=== PATIENT | female | born 1970 | race Two or more races ===

== ENCOUNTER 2023-07-28 16:19 | Inpatient (IN) | payer OTHER ==
[~2023-07-28] VITALS: Ht 149.9 cm; Wt 70.0 kg
[2023-07-28 17:03] LABS: Basophils # (auto) 0.1 10 ^3/uL (0-0.2); Basophils % (auto) 0.8 % (0.0-2.0); Eosinophils # (auto) 0.1 10 ^3/uL (0-0.8); Eosinophils % (auto) 1.6 % (0.0-7.0); Hematocrit 38.2 % (36.0-46.0); Hemoglobin 12.6 g/dL (12.2-16.2); Lymphocytes # (auto) 2.3 10 ^3/uL (0.4-5.4); Mean Corpuscular Hemoglobin 29.8 pg (28.0-32.0); Mean Corpuscular Volume 90.4 fL (80.0-100.0); Monocytes # (auto) 0.9 10 ^3/uL (0-1.3); Monocytes % (auto) 10.9 % (0.0-12.0); Neutrophils # (auto) 5.3 10 ^3/uL (1.6-8.6); Neutrophils % (auto) 60.7 % (37.0-80.0); Nucleated Red Blood Cells % 0.2 %; Red Blood Cells 4.22 10^6/uL (4.0-5.20); Red Cell Distribution Width 13.2 % (11.8-14.3); White Blood Cell 8.7 10^3/uL (4.4-10.8)
[2023-07-28 17:14] LABS: Chloride 103 mmol/L (98-107); Potassium 5.1 mmol/L (3.5-5.1); Sodium 138 mmol/L (136-145)
[2023-07-28 17:15] LABS: Anion Gap 5 (5-15); Carbon Dioxide 30 mmol/L (20-30)
[2023-07-28 17:16] LABS: Calcium 9.6 mg/dL (8.5-10.1)
[2023-07-28 17:20] LABS: Glucose 258 mg/dL (74-106)
[2023-07-28 17:21] LABS: BUN/Creatinine Ratio 26.7 (10.0-20.0); Blood Urea Nitrogen 24 mg/dL (9-23)
[2023-07-28] MEDS: KETOROLAC TROMETH 30 MG/ML 1ML VIAL IV ONE (17:30)
[2023-07-28] MEDS: SODIUM CHLORIDE 0.9% 1,000 ML IVB ONE (17:31)
[2023-07-28 18:34] LABS: Urine Bacteria NONE SEEN /hpf (None Seen); Urine Blood 3+ /uL (Negative); Urine Clarity CLOUDY (Clear); Urine Color Yellow (Yellow); Urine Protein, UAD 2+ (Negative); Urine Specific Gravity 1.021 (1.001-1.035); Urine Urobilinogen Normal (Negative); Urine WBC 953 /hpf (0 - 5); Urine WBC Clumps PRESENT /hpf (None Seen)
[2023-07-28] MEDS ORDERED: METH5TAB98 PO (20:46)
[2023-07-28] MEDS ORDERED: ATOR10TA52 PO (20:46)
[2023-07-28] MEDS ORDERED: ACETAMINOPHEN 325 MG TAB PO PRN (21:30)
[2023-07-28] MEDS ORDERED: DEXTROSE (50%) 50ML SYRG IV PRN (21:30)
[2023-07-28] MEDS ORDERED: DOCUSATE SOD 100 MG CAP PO PRN (21:30)
[2023-07-28] MEDS ORDERED: HYDROcodone-ACET 5/325MG TAB PO PRN (21:30)
[2023-07-28] MEDS ORDERED: ONDANSETRON HCL 4 MG/2 ML VIAL IV PRN (21:30)
[2023-07-28 21:50] VITALS: PULSE 97; RESP 19; O2SAT 96
[2023-07-28] MEDS: cefTRIAXone 1GM/50ML D5W 50 ML IV ONE (21:57)
[2023-07-28] MEDS: SODIUM CHLORIDE 0.9% 1,000 ML IV ONE (21:57)
[2023-07-28] MEDS: ACCU-CHEK COMFORT CURVE STRIP VI SCH (21:58)
[2023-07-28] MEDS: InsuLIN REG 1unit/0.01ml Soln (100units/ml) SC SCH (21:59)
[2023-07-28 22:00] LABS: Lactic Acid w/Reflex 2.7 mmol/L (0.4-2.0)
[2023-07-29] VITALS (8 sets, daily range): BP systolic 135–153; BP diastolic 50–71; PULSE 82–110; RESP 16–20; TEMP 98.4–98.9; O2SAT 94–97
[2023-07-29] MEDS ORDERED: PROP1TAB53 PO (05:00)
[2023-07-29] MEDS ORDERED: INSU100I55 SC (05:00)
[2023-07-29] MEDS: InsuLIN REG 1unit/0.01ml Soln (100units/ml) SC SCH (05:53)
[2023-07-29 06:31] LABS: Basophils # (auto) 0.1 10 ^3/uL (0-0.2); Basophils % (auto) 0.6 % (0.0-2.0); Eosinophils # (auto) 0.1 10 ^3/uL (0-0.8); Eosinophils % (auto) 1.2 % (0.0-7.0); Hematocrit 36.4 % (36.0-46.0); Hemoglobin 11.8 g/dL (12.2-16.2); Lymphocytes # (auto) 1.6 10 ^3/uL (0.4-5.4); Lymphocytes % (auto) 18.2 % (10.0-50.0); Mean Corpuscular Hemoglobin 29.3 pg (28.0-32.0); Mean Corpuscular Hgb Conc. 32.4 g/dL (32.0-36.0); Mean Corpuscular Volume 90.6 fL (80.0-100.0); Monocytes # (auto) 0.8 10 ^3/uL (0-1.3); Monocytes % (auto) 9.3 % (0.0-12.0); Neutrophils # (auto) 6.1 10 ^3/uL (1.6-8.6); Neutrophils % (auto) 70.7 % (37.0-80.0); Red Blood Cells 4.02 10^6/uL (4.0-5.20); Red Cell Distribution Width 13.2 % (11.8-14.3); White Blood Cell 8.6 10^3/uL (4.4-10.8)
[2023-07-29 06:48] LABS: Alanine Aminotransferase 101 U/L (7-40); Albumin 3.6 g/dL (3.2-4.8); Alkaline Phosphatase 277 U/L (46-116); Anion Gap 12 (5-15); Aspartate Aminotransferase 145 U/L (13-40); BUN/Creatinine Ratio 24.6 (10.0-20.0); Blood Urea Nitrogen 17 mg/dL (9-23); Carbon Dioxide 20 mmol/L (20-30); Chloride 103 mmol/L (98-107); Glucose 383 mg/dL (74-106); Potassium 4.8 mmol/L (3.5-5.1); Sodium 135 mmol/L (136-145)
[2023-07-29 06:49] LABS: Bilirubin, Total 0.6 mg/dL (0.2-1.0); Total Protein 6.1 g/dL (5.7-8.2)
[2023-07-29] MEDS: cefTRIAXone 1GM/50ML D5W 50 ML IV SCH (09:00)
[2023-07-29 10:23] LABS: Lactic Acid w/Reflex 2.4 mmol/L (0.4-2.0)
[2023-07-29] MEDS ORDERED: CEPH250C PO (11:42)
[2023-07-29] MEDS: SODIUM CHLORIDE 0.9% 1,000 ML IV ONE (11:45)
[2023-07-29 12:23] LABS: Free T4 (Free Thyroxine) 2.19 ng/dL (0.89-1.76); T3 Total 1.68 ng/mL (0.60-1.81)
[2023-07-29 14:37] LABS: Alanine Aminotransferase 94 U/L (7-40); Albumin 3.4 g/dL (3.2-4.8); Alkaline Phosphatase 276 U/L (46-116); Anion Gap 14 (5-15); Aspartate Aminotransferase 99 U/L (13-40); Bilirubin, Total 0.6 mg/dL (0.2-1.0); Blood Urea Nitrogen 14 mg/dL (9-23); Calcium 8.6 mg/dL (8.7-10.4); Carbon Dioxide 19 mmol/L (20-30); Chloride 101 mmol/L (98-107); Potassium 4.8 mmol/L (3.5-5.1); Sodium 134 mmol/L (136-145); Total Protein 5.5 g/dL (5.7-8.2)
[2023-07-29 15:05] LABS: Glucose 472 mg/dL (74-106)
[2023-07-29] MEDS: SODIUM CHLORIDE 0.9% 1,000 ML IV SCH (18:45)
[2023-07-29] MEDS: INSULIN LANTUS (GLARGINE) 1 /0.01ml (100units/ml) SC SCH (22:21)
[2023-07-30] VITALS (7 sets, daily range): BP systolic 118–158; BP diastolic 49–80; PULSE 74–89; RESP 16–22; TEMP 97.6–98.4; O2SAT 97–100
[2023-07-30 06:52] LABS: Alanine Aminotransferase 106 U/L (7-40); Albumin 3.5 g/dL (3.2-4.8); Alkaline Phosphatase 302 U/L (46-116); Anion Gap 7 (5-15); Aspartate Aminotransferase 171 U/L (13-40); BUN/Creatinine Ratio 22.4 (10.0-20.0); Blood Urea Nitrogen 11 mg/dL (9-23); Calcium 8.9 mg/dL (8.7-10.4); Carbon Dioxide 25 mmol/L (20-30); Chloride 105 mmol/L (98-107); Glucose 178 mg/dL (74-106); Potassium 4.1 mmol/L (3.5-5.1); Sodium 137 mmol/L (136-145)
[2023-07-30 06:53] LABS: Bilirubin, Total 0.4 mg/dL (0.2-1.0); Total Protein 5.9 g/dL (5.7-8.2)
[2023-07-30 08:46] LABS: Acetaminophen < 2.0 UG/ML (10.0-20.0)
[2023-07-30 08:53] LABS: Salicylate < 3.0 mg/dL (2.8-20.0)
[2023-07-30] MEDS: methIMAzole 5 MG TAB PO ONE (09:17)
[2023-07-30] MEDS: LOSARTAN POTASSIUM 50 MG TAB PO SCH (09:35)
[2023-07-30] MEDS: IBUPROFEN 800 MG TAB PO PRN (12:36)
[2023-07-30] MEDS: methIMAzole 5 MG TAB PO SCH (13:06)
[2023-07-31 05:00] VITALS: BP 135/83; PULSE 92; RESP 22; TEMP 97.9; O2SAT 96
[2023-07-31 06:58] LABS: Alanine Aminotransferase 94 U/L (7-40); Alkaline Phosphatase 309 U/L (46-116); Anion Gap 10 (5-15); Aspartate Aminotransferase 100 U/L (13-40); BUN/Creatinine Ratio 22.6 (10.0-20.0); Blood Urea Nitrogen 14 mg/dL (9-23); Calcium 9.3 mg/dL (8.7-10.4); Carbon Dioxide 22 mmol/L (20-30); Chloride 103 mmol/L (98-107); Glucose 332 mg/dL (74-106); Potassium 5.3 mmol/L (3.5-5.1); Sodium 135 mmol/L (136-145)
[2023-07-31 06:59] LABS: Albumin 3.6 g/dL (3.2-4.8); Bilirubin, Total 0.5 mg/dL (0.2-1.0); Total Protein 6.2 g/dL (5.7-8.2)
[2023-07-31] MEDS: LOSARTAN POTASSIUM 50 MG TAB PO ONE (10:00)
[2023-07-31 10:35] VITALS: BP 128/60; PULSE 84; RESP 16; TEMP 98.3; O2SAT 99
[2023-07-31] MEDS: amLODIPine BESYLATE 5 MG TAB PO SCH (10:42)
[2023-07-31 13:12] VITALS: BP 136/61; PULSE 69; RESP 16; TEMP 97.7; O2SAT 96
[2023-07-31] MEDS: PIPERACILLIN-TAZOB 3.375GM 100 ML IV SCH (14:38)
[2023-07-31 17:11] VITALS: BP 123/56; PULSE 84; RESP 16; TEMP 98; O2SAT 100
[2023-07-31 22:00] VITALS: BP 133/65; PULSE 85; RESP 22; TEMP 97.4; O2SAT 97
[2023-08-01 05:00] VITALS: BP 127/64; PULSE 84; RESP 20; TEMP 97.9; O2SAT 90
[2023-08-01 08:19] LABS: Alanine Aminotransferase 97 U/L (7-40); Alkaline Phosphatase 347 U/L (46-116); Anion Gap 11 (5-15); BUN/Creatinine Ratio 18.6 (10.0-20.0); Blood Urea Nitrogen 11 mg/dL (9-23); Calcium 9.8 mg/dL (8.5-10.1); Carbon Dioxide 21 mmol/L (20-30); Chloride 104 mmol/L (98-107); Glucose 273 mg/dL (74-106); Potassium 4.5 mmol/L (3.5-5.1); Sodium 136 mmol/L (136-145)
[2023-08-01 08:20] LABS: Albumin 3.9 g/dL (3.2-4.8); Aspartate Aminotransferase 98 U/L (13-40); Bilirubin, Direct 0.2 mg/dL (<0.3); Total Protein 6.3 g/dL (5.7-8.2)
[2023-08-01 08:28] LABS: Bilirubin, Total 0.5 mg/dL (0.2-1.0)
[2023-08-01 09:33] LABS: Hepatitis B Core Total AB Negative (Negative)
[2023-08-01 09:58] LABS: Hepatitis A Total Antibody Negative (Negative); Hepatitis B Surface Antibody Negative (Negative); Hepatitis B Surface Antigen Negative (Negative); Hepatitis C Antibody Negative (Negative)
[2023-08-01 13:00] VITALS: BP 139/57; PULSE 103; RESP 17; TEMP 98.1; O2SAT 99
[2023-08-01 17:13] VITALS: BP 136/62; PULSE 112; RESP 19; TEMP 98.2; O2SAT 100
[2023-08-01] MEDS: INSULIN LISPRO (HUMAN) 100 UNITS/ML ML SC ONE (17:58)
[2023-08-01 20:26] VITALS: PULSE 93; RESP 18; O2SAT 97
[2023-08-01] MEDS: INSULIN LANTUS (GLARGINE) 1 /0.01ml (100units/ml) SC SCH (21:34)
[2023-08-01 22:00] VITALS: BP 122/60; PULSE 93; RESP 18; TEMP 98.2; O2SAT 97
[2023-08-02 05:00] VITALS: BP 123/50; PULSE 91; RESP 18; TEMP 98.1; O2SAT 97
[2023-08-02 05:41] LABS: Alanine Aminotransferase 81 U/L (7-40); Alkaline Phosphatase 329 U/L (46-116); Anion Gap 12 (5-15); BUN/Creatinine Ratio 16.7 (10.0-20.0); Blood Urea Nitrogen 12 mg/dL (9-23); Calcium 10.1 mg/dL (8.5-10.1); Carbon Dioxide 20 mmol/L (20-30); Chloride 102 mmol/L (98-107); Glucose 372 mg/dL (74-106); Potassium 4.8 mmol/L (3.5-5.1); Sodium 134 mmol/L (136-145)
[2023-08-02 05:42] LABS: Albumin 3.9 g/dL (3.2-4.8); Aspartate Aminotransferase 60 U/L (13-40)
[2023-08-02 05:43] LABS: Bilirubin, Total 0.5 mg/dL (0.2-1.0); Total Protein 6.4 g/dL (5.7-8.2)
[2023-08-02 08:00] VITALS: BP 130/82; PULSE 93; RESP 16; TEMP 98; O2SAT 97
[2023-08-02 09:00] VITALS: BP 130/52; PULSE 93; RESP 16; TEMP 98; O2SAT 97
[2023-08-02 12:08] VITALS: BP 130/82; PULSE 93; RESP 16; TEMP 98; O2SAT 97
[2023-08-02 12:39] VITALS: BP 122/67; PULSE 95; RESP 19; TEMP 98.1; O2SAT 99
== END 2023-08-02 13:15 | disposition home or self-care (01) | DRG 637 ==
LOC: ER 16:19 → WEST WING 21:18 → OVERFLOW 21:18 → WEST WING 07-29 04:38
PROVIDERS: ADMIT Nurse Practitioner Family; ATTEND Internal Medicine
DX: E10.65 Type 1 diabetes mellitus with hyperglycemia (principal); N17.0 Acute kidney failure with tubular necrosis; F32.A Depression, unspecified; E78.5 Hyperlipidemia, unspecified; R74.01 Elevation of levels of liver transaminase levels; E05.00 Thyrotoxicosis with diffuse goiter without thyrotoxic crisis or storm; Z91.148 Patient's other noncompliance with medication regimen for other reason; Z79.4 Long term (current) use of insulin; Z88.1 Allergy status to other antibiotic agents; Z90.710 Acquired absence of both cervix and uterus; Z71.89 Other specified counseling; Z87.891 Personal history of nicotine dependence; Z83.3 Family history of diabetes mellitus
CPT/HCPCS: 36415; 74176; 76700; 78226; 80048; 80053; 80329; 81001; 82140; 82248; 82962; 83036; 83605; 84439; 84443; 84480; 85025; 86704; 86706; 86708; 86803; 87086; 87088; 87186; 87340; 96361; 96365; G0378; J1815; J1885; J2543

== ENCOUNTER 2024-09-16 09:06 | Inpatient (IN) | payer BC, OTHER ==
[~2024-09-16] VITALS: Ht 149.9 cm; Wt 67.6 kg
[~2024-09-16 09:06] MED LIST: CEPH250C PO; INSU100I55 SC; METH5TAB98 PO; PROP1TAB53 PO
[2024-09-16 09:20] VITALS: PULSE 144
[2024-09-16] MEDS: AMIODARONE BOLUS KIT 100 ML IV ONE (10:03)
[2024-09-16] MEDS: AMIODARONE 360mg/200mL PREMIX 200 ML IV ONE (10:13)
--- NOTE | 2024-09-16 10:13 | ED.PDOC ---
HPI Comments 53 year old female presents to the ED with chief complaint of chest pain. Patient reports that she woke up this morning with a fast HR at 111, so she took her A-Fib medication with no relief noted, going up to the 140s eventually. Patient relays that she is now experiencing chest pain with SOB. Patient denies any N/V, numbness, weakness, dizziness, or headache. Chief Complaint: Chest Pain Time Seen by MD: 10:08 Primary Care Provider: TIA Reviewed Notes: Nurses Notes, Medications, Allergies Allergies: Coded Allergies: Naproxen (Verified Allergy, Severe, 07/30/23) Swollen throat Metronidazole (Verified Allergy, Unknown, 07/28/23) Home Meds Active Scripts Cephalexin (KEFLEX CAPSULE) 250 Mg Cp, 500 MG PO TID for 10 Days, #30 CAP Prov:RACHID ANN MD 07/29/23 Reported Medications Insulin Lispro-Aabc (Lyumjev) 100 Unit/Ml Inj, SC 07/29/23 Propranolol HCl (Propranolol Hydrochloride) 20 Mg Tab, 20 MG PO DAILY, TAB 07/29/23 Methimazole (Methimazole) 5 Mg Tab, 1 TAB PO TID 07/28/23 Information Source: Patient Mode of Arrival: Ambulatory Severity: Moderate Timing: Hours Duration: Since onset Prehospital treatment: None Location: Chest (L) Radiation: No Radiation Quality: Aching Onset: At Rest Cardiac Risk Factors: Diabetes PE Risk Factors: None History of: Similar pain in past Past Medical History PAST MEDICAL HISTORY: AFIB, Depression, DM, High Lipids Past Medical History (Other): Grave's Disease Surgical History: Appendectomy, Hysterectomy TRIAGE TECHNICIAN History: No Pertinent TRIAGE TECHNICIAN History Family History Family History: Family hx of DM, Family hx of Cancer Social History Smoker: Quit Less Than 1 Year Alcohol: Denies ETOH Use Drugs: Denies Drug Use Lives In: Home Constitutional: denies: chills, diaphoresis, fatigue, fever, malaise, sweats, weakness, others EENTM: denies: blurred vision, double vision, ear bleeding, ear discharge, ear drainage, ear pain, ear ringing, eye pain, eye redness, hearing loss, mouth pain, mouth swelling, nasal discharge, nose bleeding, nose congestion, nose pain, photophobia, tearing, throat pain, throat swelling, voice changes, others Respiratory: denies: cough, hemoptysis, orthopnea, SOB at rest, shortness of breath, SOB with excertion, stridor, wheezing, others Cardiovascular: reports: chest pain, others (Tachycardia); denies: dizzy spells, diaphoresis, Dyspnea on exertion, edema, irregular heart beat, left arm pain, lightheadedness, palpitations, PND, syncope Gastrointestinal: denies: abdomen distended, abdominal pain, blood streaked bowels, constipated, diarrhea, dysphagia, difficulty swallowing, hematemesis, melena, nausea, poor appetite, poor fluid intake, rectal bleeding, rectal pain, vomiting, others Genitourinary: denies: abnormal vagina bleeding, burning, dyspareunia, dysuria, flank pain, frequency, hematuria, incontinence, pain, , vagina discharge, urgency, others Neurological: denies: dizziness, fainting, headache, left sided numbness, left sided weakness, numbness, paresthesia, pre-existing deficit, right sided numbness, right sided weakness, seizure, speech problems, tingling, tremors, weakness, others Musculoskeletal: denies: back pain, gout, joint pain, joint swelling, muscle pain, muscle stiffness, neck pain, others Integumetry: denies: bruises, change in color, change in hair/nails, dryness, laceration, lesions, lumps, rash, wounds, others Allergic/Immunocompromised: denies: Difficulty Healing, Frequent Infections, Hives, Itching, others Hematologic/Lymphatic: denies: anemia, blood clots, easy bleeding, easy bruising, swollen glands, others Psychiatric: denies: anxiety, bipolar disorder, depression, hopeless, panic disorder, schizophrenia, sleepless, suicidal, others All Other Systems: Reviewed and Negative Physical Exam General Appearance: Moderate Distress, Normal HEENT: Normal ENT Inspection, PERRL/EOMI Neck: Full Range of Motion, Non-Tender, Normal, Normal Inspection Respiratory: Chest Non-Tender, Lungs Clear, No Accessory Muscle Use, No Respiratory Distress, Normal Breath Sounds Cardiovascular: Irregular, No Edema, No JVD, No Murmur, No Gallop, Normal Peripheral Pulses, Tachycardia Breast Exam: Deferred Gastrointestinal: No Organomegaly, Non Tender, No Pulsatile Mass, Normal Bowel Sounds, Soft Genitalia: Deferred Pelvic: Deferred Rectal: Deferred Extremities: No calf tenderness, Normal capillary refill, Normal inspection, Normal range of motion, Non-tender, No pedal edema Musculoskeletal : Apperance: Normal Neurologic: Alert, pile driver II-XII nml as Tested, No Motor Deficits, Normal Affect, Normal Mood, No Sensory Deficits Cerebellar Function: NOT DONE Reflexes: NOT DONE Skin: Dry, Normal Color, Warm Peripheral Pulses: 3+ Radial (R), 3+ Radial (L) Lymphatic: No Adenopathy Was a procedure done? Was a procedure done?: No CP Differential Dx Differential Diagnosis: A-fib, A-Flutter, Angina, Anxiety / Panic Attack, Atrial Dysrhythmia, Electrolyte Disorder X-Ray, Labs, Meds, VS Vital Signs Date Time Temp Pulse Resp B/P (MAP) Pulse Ox O2 Delivery O2 Flow Rate FiO2 09/16/24 09:20 144 Room Air* 0 21 09/16/24 09:13 150 09/16/24 09:06 97.8 128 16 101/77 (85) 97 97.8 Lab Test 09/16/24 09:54 09/16/24 09:11 Range/Units Troponin I High Sensitivity Pending 12 </=34 ng/L Sodium Level Pending Potassium Level Pending Chloride Level Pending Carbon Dioxide Level Pending Anion Gap Pending Blood Urea Nitrogen Pending Creatinine Pending Glomerular Filtration Rate Calc Pending BUN/Creatinine Ratio Pending Serum Glucose Pending Calcium Level Pending Current Medications Medications (Trade) Dose Ordered Sig/Isaak Route Start Time Stop Time Status Last Admin Amiodarone HCl 100 ml @ 600 mls/hr ONCE ONCE IV 09/16/24 10:00 09/16/24 10:09 DC 09/16/24 10:03 Insulin Human Regular (InsuLIN R) 3 units ONCE ONCE IV 09/16/24 10:00 09/16/24 10:01 DC 09/16/24 10:38 Sodium Chloride 1,000 ml @ 150 mls/hr Q6H40M ONCE IV 09/16/24 10:00 09/16/24 16:39 09/16/24 10:30 Patient alert. Rapid heart rate. Irregular. Saturation pristine. EKG does show atrial fibrillation. Started amiodarone. Blood sugar elevated. Was given insulin. Establish intravenous access. Was given fluids. Reviewed her history. Explained to the patient. Continue cardiac monitoring. Chest x-ray reviewed does not show any acute changes. Time of 1ST Reevaluation: 11:08 Reevaluation 1ST: Unchanged Patient Education/Counseling: Diagnosis, Treatment Family Education/Counseling: No Family Present Additional Information Previous visit documents reviewed: None The following tests were ordered, and results were reviewed by me: BMP, Troponin, EKG, Chest XR Additional Information was gathered from interviewing the following independent historians: EMS I reviewed and agreed with the following test results read by other providers: Chest XR I discussed treatment and results with medical personnel and: Patient Comprehensive systems review obtained and negative except for what is stated in the HPI. Departure 1 Departure Time of Disposition: 10:43 Impression: Primary Impression: Atrial fibrillation Qualified Codes: I48.0 - Paroxysmal atrial fibrillation Additional Impressions: Thyroid disorder Uncontrolled diabetes mellitus Qualified Codes: E13.65 - Other specified diabetes mellitus with hyperglycemia Disposition: ADMITTED INPATIENT Admit to: Med Surg Condition: Guarded Critical Care Note Critical Care Time?: Yes (90 min-critical care time only) Critical care comment: Atrial fibrillation Stability Stability form required: No Heart Score Heart Score: Heart Score Response (Comments) Value History Highly Suspicious 2 EKG Repolarization Disturb 1 Age 45-64 1 Risk Factors >3 or Hx ASHD 2 Troponin Normal limit 0 Total 6 I personally scribed for JOSEFINA GAYLE MD ([email or web address]) on 09/16/24 at 10:13. Electronically submitted by Isaac Martinez ([email or web address]). JOSEFINA GAYLE MD Sep 16, 2024 10:13
--- NOTE | 2024-09-16 10:28 | DVH ---
EXAM: XY CHEST PORTABLE HISTORY: sob COMPARISON: None TECHNIQUE: Portable AP view of the chest was performed. FINDINGS: No pneumothorax, consolidative infiltrates, or pulmonary edema. There is mild central perib ronchial thickening. The heart is not enlarged. IMPRESSION: Mild reactive airways disease. The lungs are otherwise clear.
[2024-09-16] MEDS: SODIUM CHLORIDE 0.9% 1,000 ML IV ONE (10:30)
[2024-09-16] MEDS: InsuLIN REG 1unit/0.01ml Soln (100units/ml) IV ONE (10:38)
--- NOTE | 2024-09-16 10:43 | ECG ---
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
[2024-09-16 11:13] LABS: Chloride 102 mmol/L (98-107); Sodium 136 mmol/L (136-145)
[2024-09-16 11:18] LABS: Anion Gap 16 (5-15); Calcium 10.7 mg/dL (8.7-10.4); Carbon Dioxide 18 mmol/L (20-31)
[2024-09-16 11:19] LABS: BUN/Creatinine Ratio 22.1 (10.0-20.0); Blood Urea Nitrogen 19 mg/dL (9-23)
[2024-09-16 11:20] LABS: Glucose 390 mg/dL (74-106)
--- NOTE | 2024-09-16 12:07 | DVHHP2 ---
History of Present Illness Reason for Visit: Chest pain History of Present Illness 53-year-old female past medical history AFib depression diabetes hyperlipidemia Graves disease surgical history appendectomy hysterectomy chief complaint patient states that she has been kept plane of chest pain and shortness of the breath. She states the chest pain was in her midsternal along with shortness of the breath. Patient does state that she has been taking her medication for her Graves disease but she states that currently she feels like she is in crisis because she had the similar symptoms last year where she was in thyroid crisis. When speaking with the patient she has stopped taking her Eliquis last year No vember 2023 due to feeling dizzy. She has not been on blood thinners since then. She states she did take her heart rate she knows was 111 today and she states that despite taking her medication she saw no improvement so she came to the ER for evaluation. She does admit she has a endocrine appointment on Tuesday. When patient arrived in the ED her heart rate was 100 and 40s and blood pressure was slightly on the low side so she was started on amiodarone drip by the ER team normal saline was given patient was found to have a glucose was 390 calcium was 10.7 troponin was negative gap was 16. CBC was completed prior to admission we will order. Chest x-ray shows reactive airway disease otherwise unremarkable. With these findings we will admit patient continue amiodarone drip IV fluids not able to give propranolol at this time due to mild hypertension we will order echocardiogram cardiology consult. Order Mag and phos along with TSH. Patient states she takes Lantus 20 units b.i.d. we will decrease to 10 units b.i.d. for now in insulin sliding scale. We will admit to [facility] Past Medical History AFib depression diabetes hyperlipidemia Graves disease Past Surgical History Appendectomy hysterectomy Family History Reviewed, non-contributory to the management of this case. Past Social History The patient lives at home, denies smoking, alcohol or illicit drugs abuse. Review of Systems Constitutional: No: Fever, Chills, Sweats, Weakness, Malaise, Other Eyes: No: Pain, Vision change, Conjunctivae inflammation, Eyelid inflammation, Other, Redness ENT: No: Ear pain, Ear discharge, Nose pain, Nose discharge, Nose congestion, Mouth pain, Mouth swelling, Throat pain, Throat swelling, Other Respiratory: Shortness of breath Cardiovascular: Chest Pain, Palpitations; No: Orthopnea, Paroxysmal Noc. Dyspnea, Edema, Lt Headedness, Other Gastrointestinal: No: Nausea, Vomiting, Abdominal Pain, Diarrhea, Constipation, Melena, Hematochezia, Other Genitourinary: No Dysuria, No Frequency, No Incontinence, No Hematuria, No Retention, No Other Musculoskeletal: No: other, neck pain, shoulder pain, arm pain, back pain, hand pain, leg pain, foot pain Skin: No: Rash, Lesions, Jaundice, Bruising, Other Neurological: No: Weakness, Numbness, Incoordination, Change in speech, Confusion, Seizures, Other Allergies: Coded Allergies: Naproxen (Verified Allergy, Severe, 07/30/23) Swollen throat Metronidazole (Verified Allergy, Unknown, 07/28/23) Exam Vital Signs Vital Signs Date Time Temp Pulse Resp B/P (MAP) Pulse Ox O2 Delivery O2 Flow Rate FiO2 09/16/24 11:00 103 24 111/64 (80) 94 09/16/24 09:20 Room Air* 0 21 09/16/24 09:06 97.8 97.8 General Appearance: Alert, Oriented X3, Cooperative, mild distress HEENT: Atraumatic, PERRLA, EOMI, Mucous membr. moist/pink Respiratory: Clear to auscultation, Normal air movement Cardiovascular: No murmurs, Gallops, Other (Irregular irregular) Abdominal: Normal bowel sounds, Soft, No tenderness, No hepatospenomegaly, No masses Extremities: No clubbing, No cyanosis, No edema, Normal pulses, No tenderness/swelling Skin: No rashes, No breakdown, No significant lesion Neuro: Normal gait, Normal speech, Strength at 5/5 X4 ext, Normal tone, Sensation intact, Cranial nerves 3-12 NL Psych/Mental Status: Mental status NL, Mood NL Labs/Xrays Chest x-ray shows reactive airway disease otherwise unremarkable I reviewed labs, imaging CT scan abdomen pelvis, EKG and all diagnostic studies on this patient from ED records and the medical chart Labs Test 09/16/24 09:54 09/16/24 09:11 Range/Units Troponin I High Sensitivity 11 </=34 ng/L Sodium Level 136 136-145 mmol/L Potassium Level 4.0 3.5-5.1 mmol/L Chloride Level 102 98-107 mmol/L Carbon Dioxide Level 18 L 20-31 mmol/L Anion Gap 16 H 5-15 Blood Urea Nitrogen 19 9-23 mg/dL Creatinine 0.86 0.550-1.02 mg/dL Glomerular Filtration Rate Calc 82 >90 mL/min BUN/Creatinine Ratio 22.1 H 10.0-20.0 Serum Glucose 390 H 74-106 mg/dL Calcium Level 10.7 H 8.7-10.4 mg/dL Assessment/Plan Assessment/Plan acute chest pain r/o acs likely from afib ekg shows afib no stemi trop negative x2 ordered echo fu results ordered cards consult fu result acute on chronic afib found on ekg since bp low er started ami drip for now ordered lovenox for now pt is to take eliquis at home but stopped medication in 03/2024 d/t dizziness ordered mag and phos fu results acute thyroid storm causing afib with rvr ordered tsh and free t3 and t4 ordered home does methimazole uncontrolled type 2 dm without dka ordered insulin iv 3 units in ed ordered accucheck q4h cont home dose of lantus but will provide 10 units bid for now can adjust to dose of (20 units bid) acute reactive airway disease found on cxr ordered albuterol/atrovent prn if with sob chronic problem depression dm ISS hld graves disease fen/ppx diet hl scd lovenox no gi ppx since no hx of gerds or gi bleed plan admit to [facility] for further workup Plan discussed with: Patient Date of Service: Sep 16, 2024 Billing Provider: FRANCISCA RODGERS DNP Common Visit Codes: [id number] INP/OBS CARE (HIGH), [id number] CARE 30- 74 MIN (Total critical care time: Approximately 45 minutes This critical care time included obtaining a history; examining the patient; pulse oximetry; ordering and review of studies; arranging urgent treatment with development of a management plan; evaluation of patient's response to treatment; frequent reassessment; and, discussions with other providers.) FRANCISCA RODGERS DNP Sep 16, 2024 12:07
[2024-09-16] MEDS ORDERED: ONDANSETRON HCL 4 MG/2 ML VIAL IV PRN (13:30)
[2024-09-16] MEDS ORDERED: MORPHINE SULFATE INJ 2 MG/ml SYRG IV PRN (13:30)
[2024-09-16] MEDS ORDERED: DEXTROSE (50%) 50ML SYRG IV PRN (13:30)
[2024-09-16] MEDS ORDERED: NITROGLYCERIN 0.4 MG SL TAB SL PRN (13:30)
[2024-09-16] MEDS ORDERED: DOCUSATE SOD 100 MG CAP PO PRN (13:30)
[2024-09-16] MEDS: SODIUM CHLORIDE 0.9% 1,000 ML IV SCH (14:30)
[2024-09-16 14:37] LABS: Magnesium 1.9 mg/dL (1.6-2.6)
[2024-09-16 14:38] LABS: Phosphorus 3.4 mg/dL (2.4-5.1)
[2024-09-16 14:40] LABS: Basophils # (auto) 0.1 10 ^3/uL (0-0.2); Basophils % (auto) 0.8 % (0.0-2.0); Eosinophils # (auto) 0.1 10 ^3/uL (0-0.8); Eosinophils % (auto) 0.9 % (0.0-7.0); Hematocrit 38.7 % (36.0-46.0); Hemoglobin 13.4 g/dL (12.2-16.2); Lymphocytes # (auto) 3.6 10 ^3/uL (0.4-5.4); Lymphocytes % (auto) 39.3 % (10.0-50.0); Mean Corpuscular Hemoglobin 29.3 pg (28.0-32.0); Mean Corpuscular Hgb Conc. 34.7 g/dL (32.0-36.0); Mean Corpuscular Volume 84.6 fL (80.0-100.0); Monocytes # (auto) 0.7 10 ^3/uL (0-1.3); Monocytes % (auto) 7.4 % (0.0-12.0); Neutrophils # (auto) 4.7 10 ^3/uL (1.6-8.6); Neutrophils % (auto) 51.6 % (37.0-80.0); Nucleated Red Blood Cells % 0.1 %; Platelet Count (auto) 320 10^3/uL (140-450); Red Blood Cells 4.58 10^6/uL (4.0-5.20); Red Cell Distribution Width 11.8 % (11.8-14.3); White Blood Cell 9.2 10^3/uL (4.4-10.8)
[2024-09-16 14:59] LABS: LDL Cholesterol 82 mg/dL (< 100)
[2024-09-16 15:00] LABS: Cholesterol 167 mg/dL (< 200); HDL Cholesterol 58 mg/dL (40-59)
[2024-09-16 15:02] LABS: Triglycerides 150 mg/dL (< 150)
--- NOTE | 2024-09-16 15:31 | DVHINCON2 ---
Date Seen: Sep 16, 2024 Referring Physician ALEX Myers Reason for Consultation Afib with rvr History of Present Illness This 53-year-old female presents in the ED with a chief complaint of chest pain and heart palpitations. The patient reports woke up with chest tightness followed by heart palpitations and is associated with shortness of breath. The patient states heart rate varies from 110-140s. The patient reports that she took additional sotalol to control the heart rate but despite of the effort, she continues to have fast heart rate for which prompted her visit to the ED. The patient states that she was seeing a Cardiology in [place] and was prescri bed with Eliquis but due to significant side effects of dizziness she stopped taking DOAC in April 2024. In the emergency department, the patient was found to be in AFib with RVR for which she was started on amiodarone drip. A 12 lead ECG revealing AFib with RVR. Upon assessment, the patient is now converted to normal sinus rhythm. She denies dizziness, syncope, chest pain, shortness of breath, or dyspnea. Significant past medical history of AFib, Graves disease, diabetes, and hyperlipidemia. Past Medical History As stated in HPI Past Surgical History Hysterectomy Appendectomy Family History: FH: cancer G8 MOTHER G8 FATHER Family History Reviewed, non-contributory to the management of this case. Social History The patient lives at home, denies smoking, alcohol or illicit drugs abuse. Allergies: Coded Allergies: Naproxen (Verified Allergy, Severe, 07/30/23) Swollen throat Metronidazole (Verified Allergy, Unknown, 07/28/23) Home Meds Active Scripts Cephalexin (KEFLEX CAPSULE) 250 Mg Cp, 500 MG PO TID for 10 Days, #30 CAP Prov:RACHID ANN MD 07/29/23 Reported Medications Insulin Lispro-Aabc (Lyumjev) 100 Unit/Ml Inj, SC 07/29/23 Propranolol HCl (Propranolol Hydrochloride) 20 Mg Tab, 20 MG PO DAILY, TAB 07/29/23 Methimazole (Methimazole) 5 Mg Tab, 1 TAB PO TID 07/28/23 Current Medications Current Medications Medications (Trade) Dose Ordered Sig/Isaak Route PRN Reason Start Time Stop Time Status Last Admin Diagnostic Test (Pha) (Accu-Chek Comfort Curve T) 1 strip ACHS 09/16/24 17:00 Insulin Human Regular (InsuLIN R) HS SC 09/16/24 22:00 Insulin Human Regular (InsuLIN R) AC SC 09/16/24 17:00 Dextrose 50 ml UD PRN IV Blood Sugar LESS THAN 60 09/16/24 13:30 Sodium Chloride 1,000 ml @ 120 mls/hr Q8H20M IV 09/16/24 13:30 Ondansetron HCl (Zofran) 4 mg Q4HP PRN IV NAUSEA / VOMITING 09/16/24 13:30 Docusate Sodium (Colace Capsule) 100 mg BIDPRN PRN PO FOR CONSTIPATION 09/16/24 13:30 Morphine Sulfate 2 mg Q4HPRN PRN IV SEVERE PAIN (7-10 PAIN SCALE) 09/16/24 13:30 Nitroglycerin (Ntrostat Sublingual) 0.4 mg Q5MINP PRN SL FOR CHEST PAIN 09/16/24 13:30 Insulin Glargine (Lantus) 10 units BID@0700,2200 SC 09/16/24 22:00 Methimazole (Tapazole) 10 mg BID PO 09/16/24 22:00 Enoxaparin Sodium (Lovenox) 70 mg Q12HR SC 09/16/24 22:00 Review of Systems Constitutional: No symptom reported Ears, Nose, & Throat: No symptom reported Eyes: No symptom reported Neurological: No symptoms reported Pulmonary/Respiratory: No symptom reported Cardiovascular: AFib with RVR, chest pain Gastrointestinal: No symptom reported Genitourinary: No symptom reported Musculoskeletal: No symptom reported Skin: No symptom reported Psychiatric: No symptom reported Endocrine: No symptom reported Hematologic/Lymphatic: No symptom reported Vital Signs Vital Signs Date Time Temp Pulse Resp B/P (MAP) Pulse Ox O2 Delivery O2 Flow Rate FiO2 09/16/24 13:00 105 16 109/43 (65) 93 09/16/24 09:20 Room Air* 0 21 09/16/24 09:06 97.8 97.8 Physical Exam INITIAL VITAL SIGNS: Reviewed by me GENERAL: Alert and interactive. No acute distress. HEAD: Head is normocephalic and atraumatic. EYES: EOMI, PERRL. No scleral icterus. No conjunctival injection. ENT: Moist mucous membranes. NECK: Supple, No masses, Full range of motion. RESPIRATORY: No tachypnea. Clear breath sounds bilaterally. No wheezing, rales, rhonchi. CV: Atrial fibrillation, now in sinus rhythm, on antiarrhythmic amiodarone GI/: Active bowel sounds, soft, nondistended, nontender. No guarding. No rebound. No masses. No CVA tenderness. INTEGUMENTARY: Warm and dry. No obvious rashes. NEUROLOGIC: Alert and oriented. Face is symmetric. Speech is normal. Moves all extremities equally. Labs/Diagnostic Data Labs Test 09/16/24 13:51 09/16/24 12:06 09/16/24 09:11 Range/Units White Blood Count 9.2 4.4-10.8 10^3/uL Red Blood Count 4.58 4.0-5.20 10^6/uL Hemoglobin 13.4 12.2-16.2 g/dL Hematocrit 38.7 36.0-46.0 % Mean Corpuscular Volume 84.6 80.0-100.0 fL Mean Corpuscular Hemoglobin 29.3 28.0-32.0 pg Mean Corpuscular Hemoglobin Concent 34.7 32.0-36.0 g/dL Red Cell Distribution Width 11.8 11.8-14.3 % Platelet Count 320 140-450 10^3/uL Mean Platelet Volume 9.0 6.9-10.8 fL Neutrophils (%) (Auto) 51.6 37.0-80.0 % Lymphocytes (%) (Auto) 39.3 10.0-50.0 % Monocytes (%) (Auto) 7.4 0.0-12.0 % Eosinophils (%) (Auto) 0.9 0.0-7.0 % Basophils (%) (Auto) 0.8 0.0-2.0 % Neutrophils # (Auto) 4.7 1.6-8.6 10 ^3/uL Lymphocytes # (Auto) 3.6 0.4-5.4 10 ^3/uL Monocytes # (Auto) 0.7 0-1.3 10 ^3/uL Eosinophils # (Auto) 0.1 0-0.8 10 ^3/uL Basophils # (Auto) 0.1 0-0.2 10 ^3/uL Nucleated Red Blood Cells 0.1 % Phosphorus Level 3.4 2.4-5.1 mg/dL Magnesium Level 1.9 1.6-2.6 mg/dL Triglycerides Level 150 H < 150 mg/dL Cholesterol Level 167 < 200 mg/dL LDL Cholesterol 82 < 100 mg/dL HDL Cholesterol 58 40-59 mg/dL Beta-Hydroxybutyric Acid 0.560 H < 0.4 mmol/L Thyroid Stimulating Hormone (TSH) < 0.01 L 0.55-4.78 uIU/mL Troponin I High Sensitivity 10 </=34 ng/L Sodium Level 136 136-145 mmol/L Potassium Level 4.0 3.5-5.1 mmol/L Chloride Level 102 98-107 mmol/L Carbon Dioxide Level 18 L 20-31 mmol/L Anion Gap 16 H 5-15 Blood Urea Nitrogen 19 9-23 mg/dL Creatinine 0.86 0.550-1.02 mg/dL Glomerular Filtration Rate Calc 82 >90 mL/min BUN/Creatinine Ratio 22.1 H 10.0-20.0 Serum Glucose 390 H 74-106 mg/dL Calcium Level 10.7 H 8.7-10.4 mg/dL PROCEDURE(s): CXRP - CHEST PORTABLE REASON: sob ORDER NUMBER(s): [id number], ACCESSION NUMBER(s): [id number] EXAM: XY CHEST PORTABLE HISTORY: sob COMPARISON: None TECHNIQUE: Portable AP view of the chest was performed. FINDINGS: No pneumothorax, consolidative infiltrates, or pulmonary edema. There is mild central peribronchial thickening. The heart is not enlarged. IMPRESSION: Mild reactive airways disease. The lungs are otherwise clear. Assessment AFib with RVR, now in sinus rhythm hx of afib on Eliquis. CHADS-VASc score 2 Hyperlipidemia Graves disease Diabetes Plan/Recommendation Plan/Recommendation (Dr. Miller ): - Echocardiogram to evaluate cardiac function - transition antiarrhythmic amiodarone drip to PO 200mg bid - chads Vasc score 2- therapeutic Lovenox, transition to DOAC on discharge - monitor electrolytes and replete as needed. Keep magnesium .2.2 and k >4.0 - continue to monitor on telemetry This medical document was created using an electronic medical record system with voice recognition software and computerized dictation system. Although this document has been carefully reviewed, there might still be some phonetic and typographical errors. Occasional wrong-word or ``sound-alike substitutions may have occurred due to the inherent limitations of voice recognition software. These areas are purely typographical due to imperfections of the software programs and do not reflect any compromise in the patient's medical care. Please read the chart carefully and recognize, using context, where these substitutions have occurred. Plan discussed with: Patient Plan discussed with: Patient, Other (RN) NYHA Physical activity limitations: NA Date of Service: Sep 16, 2024 Billing Provider: MARY MILLER MD Cardiology Common Codes: CONSULT ONLY MISSY HUTCHISON TRAVEL COORDINATOR Sep 16, 2024 15:31
[2024-09-16] MEDS: MAGNESIUM SULFATE 1GM/100ML 100 ML IV SCH (15:50)
[2024-09-16] MEDS: AMIODARONE 360mg/200mL PREMIX 200 ML IV SCH (16:07)
[2024-09-16] MEDS: InsuLIN REG 1unit/0.01ml Soln (100units/ml) SC SCH ×2 (16:36→21:49)
[2024-09-16] MEDS: ACCU-CHEK COMFORT CURVE STRIP VI SCH (16:38)
--- NOTE | 2024-09-16 18:59 | DVHSR ---
APPROVED REPORT EXAM: Two-dimensional and M-mode echocardiogram with Doppler and color Doppler. Blood Pressure: 109/43 mmHg INDICATION Eval for cardiac function and EF RISK FACTORS Height: 4' 11", Weight: 143 DIMENSIONS LVDd4.0 (3.8-5.7cm)LA (2D)3.3 (1.9-4.0cm)Aortic Root2.9 (2.0-3.7cm) LVDs2.6 (2.5-4.0cm)LA (MM) (1.9-4.0cm)Aortic Cusp Exc1.5 (1.5-2.0cm) EF (%) 65.0 (55-70%)Rt. Atrium2.9 (1.9-4.0cm)Asc. Aorta cm IVSd1.0 (0.7-1.1cm)RV (D) (1.8-2.4cm) PWd0.9 (0.7-1.1cm) Mitral Valve MitralMitral Stenosis E wave1.00m/sMV Mean GR.mmHg A wave0.90m/sMV Peak GR.mmHg E/A ratio1.12D MVAcm2 Aortic Valve Aortic ValveAortic Stenosis V11.00m/Ermelinda Mean GR.4mmHg V21.30m/Ermelinda Peak GR.8mmHg LVOT Diameter1.9 (1.8-2.4cm)Doppler AVA2.18cm2 Pulmonic Valve V20.90m/s Conclusion LV EF IS 65 % AND IS NORMAL NORMAL VALVES SLIGHTLY DILATED RV BUT NORMAL FUNCTION NO EFFUSION
[2024-09-16 19:50] VITALS: PULSE 77; RESP 16; O2SAT 96
[2024-09-16 20:29] VITALS: BP 134/50; PULSE 79; PULSE 95; RESP 20; TEMP 98.3; O2SAT 95
[2024-09-16 21:23] VITALS: BP 118/52; PULSE 77; RESP 17; TEMP 97.8; O2SAT 97
[2024-09-16] MEDS: MAGNESIUM OXIDE 400 MG TAB PO SCH (21:38)
[2024-09-16] MEDS: methIMAzole 5 MG TAB PO SCH (21:38)
[2024-09-16] MEDS: ENOXAPARIN SOD 80 MG/0.8ML SYRINGE SC SCH (21:39)
[2024-09-16] MEDS: INSULIN LANTUS (GLARGINE) 1 /0.01ml (100units/ml) SC SCH (21:48)
[2024-09-16] MEDS ORDERED: ENOXAPARIN SOD 80 MG/0.8ML SYRINGE SC SCH (22:00)
[2024-09-17 04:32] LABS: Urine Bacteria FEW /hpf (None Seen); Urine Blood Negative /uL (Negative); Urine Budding Yeast OCCASIONAL /hpf (None Seen); Urine Clarity Clear (Clear); Urine Color Yellow (Yellow); Urine Hyaline Cast FEW /lpf (0 - 2); Urine Mucus FEW (None Seen); Urine Protein, UAD TRACE (Negative); Urine Squamous Epithelial Cell FEW /hpf (<5); Urine Urobilinogen Normal (Negative); Urine WBC 1 /HPF (0-5)
[2024-09-17 05:00] VITALS: BP 147/71; PULSE 82; RESP 18; TEMP 97.8; O2SAT 96
[2024-09-17 07:00] LABS: Basophils # (auto) 0 10 ^3/uL (0-0.2); Basophils % (auto) 0.6 % (0.0-2.0); Eosinophils # (auto) 0.1 10 ^3/uL (0-0.8); Eosinophils % (auto) 1.7 % (0.0-7.0); Hematocrit 34.6 % (36.0-46.0); Hemoglobin 11.8 g/dL (12.2-16.2); Lymphocytes # (auto) 2.3 10 ^3/uL (0.4-5.4); Lymphocytes % (auto) 36.6 % (10.0-50.0); Mean Corpuscular Hgb Conc. 34.2 g/dL (32.0-36.0); Mean Corpuscular Volume 87.9 fL (80.0-100.0); Monocytes # (auto) 0.4 10 ^3/uL (0-1.3); Monocytes % (auto) 7.1 % (0.0-12.0); Neutrophils # (auto) 3.4 10 ^3/uL (1.6-8.6); Nucleated Red Blood Cells % 0.1 %; Platelet Count (auto) 254 10^3/uL (140-450); Red Blood Cells 3.94 10^6/uL (4.0-5.20); Red Cell Distribution Width 11.9 % (11.8-14.3); White Blood Cell 6.2 10^3/uL (4.4-10.8)
[2024-09-17 07:10] LABS: Albumin 3.7 g/dL (3.2-4.8); Anion Gap 13 (5-15); BUN/Creatinine Ratio 27.9 (10.0-20.0); Blood Urea Nitrogen 19 mg/dL (9-23); Calcium 9.6 mg/dL (8.7-10.4); Chloride 104 mmol/L (98-107); Potassium 4.6 mmol/L (3.5-5.1); Total Protein 6.1 g/dL (5.7-8.2)
[2024-09-17 07:11] LABS: Bilirubin, Total 0.5 mg/dL (0.2-1.0)
[2024-09-17 07:12] LABS: Alanine Aminotransferase 52 U/L (7-40); Alkaline Phosphatase 278 U/L (46-116); Aspartate Aminotransferase 48 U/L (13-40); Carbon Dioxide 19 mmol/L (20-31); Glucose 394 mg/dL (74-106); Sodium 136 mmol/L (136-145)
[2024-09-17 08:00] VITALS: PULSE 88
[2024-09-17 09:00] VITALS: BP 145/64; PULSE 83; RESP 19; TEMP 97.7; O2SAT 96
[2024-09-17 10:35] LABS: Free T3 7.02 pg/mL (2.3-4.2)
[2024-09-17 10:36] LABS: Free T4 (Free Thyroxine) 2.69 ng/dL (0.89-1.76)
--- NOTE | 2024-09-17 11:12 | ECG ---
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
[2024-09-17] MEDS: InsuLIN REG 1unit/0.01ml Soln (100units/ml) SC SCH (11:58)
[2024-09-17] MEDS: ACCU-CHEK COMFORT CURVE STRIP VI SCH (11:58)
[2024-09-17] MEDS ORDERED: DEXTROSE (50%) 50ML SYRG IV PRN (12:00)
[2024-09-17 13:00] VITALS: BP 115/81; PULSE 84; RESP 20; TEMP 98.2; O2SAT 96
[2024-09-17] MEDS: PROPRANOLOL HCL 20 MG TAB PO SCH (13:24)
--- NOTE | 2024-09-17 14:48 | DVH ---
ULTRASOUND SOFT TISSUE HEAD AND NECK CLINICAL INDICATION: Graves disease TECHNIQUE: Multiple real time sonographic images of the thyroid were obtained. COMPARISON: Prior exam dated none FINDINGS: RIGHT LOBE OF THE THYROID: Measures 4.3 X 2.3 X 1.8 CM PARENCHYMA IS HETEROGENEOUS IN THE LOWER POLE OF THE RIGHT LOBE OF THE THYROID IS A 1.9 X 1.4 BY 1.3 CM HETEROGENEOUS NODULE. Thi s nodule is wider than tall isoechoic with the thyroid parenchyma. 2.s consistent with TI-RADS 2. LEFT LOBE OF THE THYROID: Measures approximately 4 x 1.8 x 1.8 cm. Left lobe of the thyroid shows heterogeneous parenchyma no nodules or masses. ISTHMUS: Measures 0.4 cm. Parenchyma is heterogeneous IMPRESSION: 1. Right lobe of the thyroid measures 4.3 cm long. Left lobe of the thyroid measures 4 cm long. 2. There is a nodule in the lower pole of the right lobe of the thyroid measuring 1.9 x 1.4 x 1.3 cm . TI-RADS 2 [employer] TI-RADS Categories and Recommendations (2017): TR1: 0 points, Benign, No FNA TR2: 2 points, Not suspicious, No FNA TR3: 3 points, Mildly suspicious, FNA if > or = 2.5 cm, Follow if > or = 1.5 cm TR4: 4-6 points, Moderately Suspicious, FNA if > or = 1.5 cm, Follow if > or = 1.0 cm TR5: 7+ points, Highly Suspicious, FNA if > or = 1.0 cm, Follow if > or = 0.5 cm Follow-up ultrasound guidelines: TR5: yearly for 5 years, if no growth or change in TI-RADS level TR4: at 1, 2, 3 and 5 years, if no growth or change in TI-RADS level TR3: at 1, 3 and 5 years, if no growth or change in TI-RADS level If increased but below threshold for FNA, repeat in one year. Source: ACR Thyroid Imaging, Reporting and Data System (TI-RADS): White Paper of the ACR TI-RADS Committee. Megan loyd al., J Am Blaise Radiol 2017;14:587-595.
[2024-09-17] MEDS ORDERED: PROP1TAB53 PO (16:52)
[2024-09-17] MEDS ORDERED: METH5TAB98 PO (16:52)
[2024-09-17] MEDS ORDERED: APIX5TAB PO (16:52)
[2024-09-17 17:00] VITALS: BP 141/69; PULSE 81; RESP 19; TEMP 98.2; O2SAT 97
--- NOTE | 2024-09-17 18:21 | DVHDSRES ---
Discharge Summary Date of Admission Resident Creating Document: LEENA BELTRÁN RESIDENT Sep 16, 2024 at 13:30 Date of Discharge: Sep 17, 2024 Admitting Diagnosis Palpitations Labs/Diagnostic Data: Laboratory Results Test 09/17/24 10:52 09/17/24 05:49 09/16/24 22:00 09/16/24 13:51 POC Glucose 229 mg/dl (70-106) White Blood Count 6.2 10^3/uL (4.4-10.8) Red Blood Count 3.94 10^6/uL (4.0-5.20) Hemoglobin 11.8 g/dL (12.2-16.2) Hematocrit 34.6 % (36.0-46.0) Mean Corpuscular Volume 87.9 fL (80.0-100.0) Mean Corpuscular Hemoglobin 30.0 pg (28.0-32.0) Mean Corpuscular Hemoglobin Concent 34.2 g/dL (32.0-36.0) Red Cell Distribution Width 11.9 % (11.8-14.3) Platelet Count 254 10^3/uL (140-450) Mean Platelet Volume 9.5 fL (6.9-10.8) Neutrophils (%) (Auto) 54.0 % (37.0-80.0) Lymphocytes (%) (Auto) 36.6 % (10.0-50.0) Monocytes (%) (Auto) 7.1 % (0.0-12.0) Eosinophils (%) (Auto) 1.7 % (0.0-7.0) Basophils (%) (Auto) 0.6 % (0.0-2.0) Neutrophils # (Auto) 3.4 10 ^3/uL (1.6-8.6) Lymphocytes # (Auto) 2.3 10 ^3/uL (0.4-5.4) Monocytes # (Auto) 0.4 10 ^3/uL (0-1.3) Eosinophils # (Auto) 0.1 10 ^3/uL (0-0.8) Basophils # (Auto) 0 10 ^3/uL (0-0.2) Nucleated Red Blood Cells 0.1 % Sodium Level 136 mmol/L (136-145) Potassium Level 4.6 mmol/L (3.5-5.1) Chloride Level 104 mmol/L (98-107) Carbon Dioxide Level 19 mmol/L (20-31) Anion Gap 13 (5-15) Blood Urea Nitrogen 19 mg/dL (9-23) Creatinine 0.68 mg/dL (0.550-1.02) Glomerular Filtration Rate Calc 105 mL/min (>90) BUN/Creatinine Ratio 27.9 (10.0-20.0) Serum Glucose 394 mg/dL (74-106) Calcium Level 9.6 mg/dL (8.7-10.4) Total Bilirubin 0.5 mg/dL (0.2-1.0) Aspartate Amino Transferase (AST) 48 U/L (13-40) Alanine Aminotransferase (ALT) 52 U/L (7-40) Alkaline Phosphatase 278 U/L (46-116) Total Protein 6.1 g/dL (5.7-8.2) Albumin 3.7 g/dL (3.2-4.8) Urine Color Yellow (Yellow) Urine Clarity Clear (Clear) Urine pH 6.0 (5.0-9.0) Urine Specific [place] 1.040 (1.001-1.035) Urine Protein Trace (Negative) Urine Ketones Trace (Negative) Urine Blood Negative /uL (Negative) Urine Nitrite Negative (Negative) Urine Bilirubin Negative (Negative) Urine Urobilinogen Normal mg/dL (Negative) Urine Leukocyte Esterase Negative /uL (Negative) Urine RBC None seen /hpf (0 - 4) Urine Microscopic WBC 1 /HPF (0-5) Urine Squamous Epithelial Cells Few /hpf (<5) Urine Bacteria Few /hpf (None Seen) Urine Hyaline Casts Few /lpf (0 - 2) Urine Mucus Few (None Seen) Urine Yeast (Budding) Occasional /hpf (None Urine Glucose 4+ mg/dL (Normal) D-Dimer, Quantitative < 0.19 mg/L FEU (0.0-0.49) Hemoglobin A1c 10.2 % A1C (<5.7) Phosphorus Level 3.4 mg/dL (2.4-5.1) Magnesium Level 1.9 mg/dL (1.6-2.6) Triglycerides Level 150 mg/dL (< 150) Cholesterol Level 167 mg/dL (< 200) LDL Cholesterol 82 mg/dL (< 100) HDL Cholesterol 58 mg/dL (40-59) Beta-Hydroxybutyric Acid 0.560 mmol/L (< 0.4) Thyroid Stimulating Hormone (TSH) < 0.01 uIU/mL (0.55-4.78) Free Thyroxine (T4) Calculated 2.69 ng/dL (0.89-1.76) Free Triiodothyronine (T3) pg/mL 7.02 pg/mL (2.3-4.2) Test 09/16/24 12:06 Troponin I High Sensitivity 10 ng/L (</=34) Other Laboratory Tests 09/17/24 05:49 Brief Hx & Hospital Course: This is 53-year-old female who comes for chief complaint patient states that she has having chest pain and shortness of the breath. Past Medical History: AFib depression diabetes hyperlipidemia Graves disease Past Surgical History: Appendectomy hysterectomy Family History: Reviewed, non-contributory to the management of this case. Past Social History: The patient lives at home, denies smoking, alcohol or illicit drugs abuse. She states the chest pain was in her midsternal along with shortness of the breath. Patient does state that she has been taking her medication for her Graves disease but she states that currently she feels like she is in crisis because she had the similar symptoms last year where she was in thyroid crisis. When speaking with the patient she has stopped taking her Eliquis last year May 09, 2024 due to feeling dizzy. She has not been on blood thinners since then. She states she did take her heart rate she knows was 111 today and she states that despite taking her medication she saw no improvement so she came to the ER for evaluation. She does admit she has a endocrine appointment on Tuesday. When patient arrived in the ED her heart rate was 100 and 40s and blood pressure was slightly on the low side so she was started on amiodarone drip by the ER team normal saline was given patient was found to have a glucose was 390, calcium was 10.7 troponin was negative gap was 16. CBC was completed prior to admission we will order. Chest x-ray shows reactive airway disease otherwise unremarkable. With these findings we will admit patient continue amiodarone drip IV fluids not able to give propranolol at this time due to mild hypertension we will order echocardiogram cardiology consult. Order Mag and phos along with TSH. Patient states she takes Lantus 20 units b.i.d. we will decrease to 10 units b.i.d. for now in insulin sliding scale. On my initial assessment, patient was seen and examined at bedside. She currently states feeling well, denies any significant shortness of breath, chest pain, abdominal pain, dysuria, nausea, vomiting, diarrhea, constipation, dizziness, lightheadedness. She's currently tolerating diet, ambulatory. Patient was assessed by wheat farmer, they recommended to continue Eliquis. Patient was already on NSR. Echo was also unremarkable, ejection fraction of 65%. Patient states that her main concern was having palpitations, patient's current heart rate is around 70s 80s, she turned back to normal sinus rhythm. Amiodarone drip was held admission was started on propranolol 10 mg p.o. t.i.d. patient's TSH was suppressed at less than 0.01, T3 and T4 were elevated, we will order thyroid ultrasound. We will also discuss the case with the staff nuclear weapons officer that is going to follow up with her tomorrow. We will continue the patient on methimazole 10 mg p.o. b.i.d. Physical examination as below: General: Awake, alert, comfortable appearing, in no acute distress. HEENT: Head is normocephalic and atraumatic. Pupils are equal, round, and reactive to light. Extraocular muscles are intact. No nasal discharge. No facial trauma. Intraoral exam shows moist mucous membranes with no tonsillar enlargement or exudate. Neck: Supple with no cervical lymphadenopathy. Heart: Regular rate without murmur, rub, or gallop. Lungs: Equal breath sounds bilaterally with no wheezing, rales, or rhonchi. There is no chest wall tenderness or instability. Abdomen: No external sign of injury. Bowel sounds are present. Abdomen is soft, nontender. No rebound, no guarding, no rigidity. There are no palpable masses. There is no flank pain on exam. Extremities: Strong peripheral pulses. There is no clubbing, no cyanosis, and no edema. Skin: No rash. Neurologic: Cranial nerves II-XII intact without motor, sensory, or cerebellar deficit, no asterixis. Patient will be discharge home, she will continue home medications as prescribed. She will continue taking methimazole 10 mg p.o. b.i.d. and propranolol 10 mg p.o. t.i.d. She will follow-up with staff nuclear weapons officer Dr. Banerjee tomorrow and PCP in 1-2 weeks. Patient verbalized understanding and agree with the DC plan, we spent over 30 minutes explaining the plan. Case was discussed with Dr. Ulrich Operations or Procedures [facility] [id number] [place] [id number] Ph: [phone] DIAGNOSTIC IMAGING Diagnostic Imaging Report : [id number] Signed PATIENT: MARTY NOELCCT: [id number] UNIT: [id number] : 1970 LOC: OVERFLOW ROOM / BED: [address] [place] [address] AGE / SEX: 53 / F ADM STATUS: ADM IN SERVICE 1330 ORDERING PHYSICIAN: FRANCISCA RODGERS DNP PROCEDURE(s): ECIDC - ECHO 2D MODE CARDIAC DOP REASON: eval for cardiac function and ef ORDER NUMBER(s): [id number], ACCESSION NUMBER(s): [id number] APPROVED REPORT EXAM: Two-dimensional and M-mode echocardiogram with Doppler and color Doppler. Blood Pressure: 109/43 mmHg INDICATION Eval for cardiac function and EF RISK FACTORS Height: 4' 11", Weight: 143 DIMENSIONS LVDd 4.0 (3.8-5.7cm) LA (2D) 3.3 (1.9-4.0cm) Aortic Root 2.9 (2.0- 3.7cm) LVDs 2.6 (2.5-4.0cm) LA (MM) (1.9-4.0cm) Aortic Cusp Exc 1.5 (1.5- 2.0cm) EF (%) 65.0 (55-70%) Rt. Atrium 2.9 (1.9-4.0cm) Asc. Aorta cm IVSd 1.0 (0.7-1.1cm) RV (D) (1.8-2.4cm) PWd 0.9 (0.7-1.1cm) Mitral Valve Mitral Mitral Stenosis E wave 1.00m/s MV Mean GR. mmHg A wave 0.90m/s MV Peak GR. mmHg E/A ratio 1.1 2D MVA cm2 Aortic Valve Aortic Valve Aortic Stenosis V1 1.00m/s AO Mean GR. 4mmHg V2 1.30m/s AO Peak GR. 8mmHg LVOT Diameter 1.9 (1.8-2.4cm) Doppler ZACHARY 2.18cm2 Pulmonic Valve V2 0.90m/s Conclusion LV EF IS 65 % AND IS NORMAL NORMAL VALVES SLIGHTLY DILATED RV BUT NORMAL FUNCTION NO EFFUSION SIGNED BY: MARY DIAMOND MD SIGNED DATE/TIME: 09/16/24 1859 CC: [place] [address] Ph: [phone] DIAGNOSTIC IMAGING Diagnostic Imaging Report : [id number] Signed PATIENT: ADAM NOELT: [id number] UNIT: [id number] : 1970 LOC: ER ROOM / BED: / AGE / SEX: 53 / F ADM STATUS: REG ER SERVICE 0951 ORDERING PHYSICIAN: JOSEFINA GAYLE MD PROCEDURE(s): CXRP - CHEST PORTABLE REASON: sob ORDER NUMBER(s): [id number], ACCESSION NUMBER(s): [id number] EXAM: XY CHEST PORTABLE HISTORY: sob COMPARISON: None TECHNIQUE: Portable AP view of the chest was performed. FINDINGS: No pneumothorax, consolidative infiltrates, or pulmonary edema. There is mild central peribronchial thickening. The heart is not enlarged. IMPRESSION: Mild reactive airways disease. The lungs are otherwise clear. ATED BY: LAURE PACHECO MD DICTATED DATE/TIME: 09/16/24 1025 SIGNED BY: LAURE PACHECO MD SIGNED DATE/TIME: 09/16/24 1025 CC: [address] [address] Ph: [phone] DIAGNOSTIC IMAGING Diagnostic Imaging Report : [id number] Signed PATIENT: ADAM NOELT: [id number] UNIT: [id number] : 1970 LOC: [facility] ROOM / BED: 0272T / B AGE / SEX: 53 / F ADM STATUS: ADM IN SERVICE 1310 ORDERING PHYSICIAN: LEENA BELTRÁN RESIDENT PROCEDURE(s): THYDU - THYROID REASON: graves disease ORDER NUMBER(s): [id number], ACCESSION NUMBER(s): [id number] ULTRASOUND SOFT TISSUE HEAD AND NECK CLINICAL INDICATION: Graves disease TECHNIQUE: Multiple real time sonographic images of the thyroid were obtained. COMPARISON: Prior exam dated none FINDINGS: RIGHT LOBE OF THE THYROID: Measures 4.3 X 2.3 X 1.8 CM PARENCHYMA IS HETEROGENEOUS IN THE LOWER POLE OF THE RIGHT LOBE OF THE THYROID IS A 1.9 X 1.4 BY 1.3 CM HETEROGENEOUS NODULE. This nodule is wider than tall isoechoic with the thyroid parenchyma. 2.s consistent with TI-RADS 2. LEFT LOBE OF THE THYROID: Measures approximately 4 x 1.8 x 1.8 cm. Left lobe of the thyroid shows heterogeneous parenchyma no nodules or masses. ISTHMUS: Measures 0.4 cm. Parenchyma is heterogeneous IMPRESSION: 1. Right lobe of the thyroid measures 4.3 cm long. Left lobe of the thyroid measures 4 cm long. 2. There is a nodule in the lower pole of the right lobe of the thyroid measuring 1.9 x 1.4 x 1.3 cm. TI-RADS 2 [employer] TI-RADS Categories and Recommendations (2017): TR1: 0 points, Benign, No FNA TR2: 2 points, Not suspicious, No FNA TR3: 3 points, Mildly suspicious, FNA if > or = 2.5 cm, Follow if > or = 1.5 cm TR4: 4-6 points, Moderately Suspicious, FNA if > or = 1.5 cm, Follow if > or = 1.0 cm TR5: 7+ points, Highly Suspicious, FNA if > or = 1.0 cm, Follow if > or = 0.5 cm Follow-up ultrasound guidelines: TR5: yearly for 5 years, if no growth or change in TI-RADS level TR4: at 1, 2, 3 and 5 years, if no growth or change in TI-RADS level TR3: at 1, 3 and 5 years, if no growth or change in TI-RADS level If increased but below threshold for FNA, repeat in one year. Source: ACR Thyroid Imaging, Reporting and Data System (TI-RADS): White Paper of the ACR TI-RADS Committee. Megan et al., J Am Blaise Radiol 2017;14:587-595. ATED BY: WOO RUBI Jr., DO DICTATED DATE/TIME: 09/17/241445 SIGNED BY: WOO RUBI Jr., SIGNED DATE/TIME: 09/17/241445 CC: Condition at Discharge: Guarded Final Diagnosis/Problems List thyrotoxicosis due Graves disease AFib with RVR due to above depression diabetes type 1 hyperlipidemia Discharge Disposition: Home Discharge Instruct/Medications Diet: Cardiac 2g Na,low cholest Activity: No Restrictions, As Tolerated Follow Up/Referral: fu with pcp in 1-2 weeks fu with staff nuclear weapons officer tomorrow Medications: continue methimazole and propranolol Discharge Statement: "Patient was advised to return to the ER or call 911 if any headaches, dizziness, shortness of breath, chest pain, abdominal pain, bleeding, fevers, or worsening of medical condition. Patient was counseled about treatment plan, medications, possible side effects, patientverbalized understanding. All questions were answered to the best of my ability. This discharge took greater then 30 minutes in planning, reviewing documentation, counseling the patient, and discussing with other team members." ASSESSMENT ASSESSMENT Assessment thyrotoxicosis Date of Service: Sep 17, 2024 Billing Provider: RACHID ULRICH MD Common Visit Codes: 19872-UNR/OBS DISCH DAY >30min LEENA BELTRÁN RESIDENT Sep 17, 2024 18:21 RACHID ULRICH MD Sep 18, 2024 10:58
--- NOTE | 2024-09-17 21:16 | DVHINCON2 ---
Date Seen: Sep 16, 2024 Referring Physician ALEX Myers Reason for Consultation Afib with RVR History of Present Illness This is a 53-year-old female with a past medical history of AFib, Graves disease, diabetes, and hyperlipidemia who presents to the ED with a complaint of chest pain and heart palpitations. Patient reports she woke up with chest tightness followed by heart palpitations and is associated with shortness of breath. The patient states heart rate varies from 110-140s. The patient reports that she took additional sotalol to control the heart rate but despite of the effort, she continues to have fast heart rate for which prompted her visit to the ED. Patient states that she was seeing a Insect Control Aide in [place] and was prescribed Eliquis but due to significant side effects of dizziness she stopped taking DOAC in April 2024. In the emergency department, the patient was found to be in AFib with RVR for which she was started on amiodarone drip. A 12 lead ECG revealing AFib with RVR. Upon assessment, the patient is now converted to normal sinus rhythm. She denies dizziness, syncope, chest pain, shortness of breath, or dyspnea. HGB A1C 10.2. Chest x-ray showed mild reactive airways disease. The lungs are otherwise clear. Patient was admitted to the hospital. I am asked to consult on this patient. Family History: FH: cancer G8 MOTHER G8 FATHER Allergies: Coded Allergies: Naproxen (Verified Allergy, Severe, 07/30/23) Swollen throat Metronidazole (Verified Allergy, Unknown, 07/28/23) Home Meds Active Scripts Apixaban Base (ELIQUIS) 5 Mg Tab, 5 MG PO BID for 30 Days, #60 TAB 2 Refills Prov:LEENA BELTRÁN RESIDENT 09/17/24 Propranolol HCl (Propranolol Hydrochloride) 20 Mg Tab, 10 MG PO TID for 30 Days, #45 TAB Prov:LEENA BELTRÁN RESIDENT 09/17/24 Methimazole (Methimazole) 5 Mg Tab, 10 MG PO BID for 30 Days, #120 TAB 2 Refills Prov:LEENA BELTRÁN RESIDENT 09/17/24 Cephalexin (KEFLEX CAPSULE) 250 Mg Cp, 500 MG PO TID for 10 Days, #30 CAP Prov:RACHID ANN MD 07/29/23 Reported Medications Insulin Lispro-Aabc (Lyumjev) 100 Unit/Ml Inj, SC 07/29/23 Propranolol HCl (Propranolol Hydrochloride) 20 Mg Tab, 20 MG PO DAILY, TAB 07/29/23 Methimazole (Methimazole) 5 Mg Tab, 1 TAB PO TID 07/28/23 Current Medications Current Medications Medications (Trade) Dose Ordered Sig/Isaak Route PRN Reason Start Time Stop Time Status Last Admin Diagnostic Test (Pha) (Accu-Chek Comfort Curve T) 1 strip ACHS 09/16/24 17:00 Insulin Human Regular (InsuLIN R) HS SC 09/16/24 22:00 Insulin Human Regular (InsuLIN R) AC SC 09/16/24 17:00 Dextrose 50 ml UD PRN IV Blood Sugar LESS THAN 60 09/16/24 13:30 Sodium Chloride 1,000 ml @ 120 mls/hr Q8H20M IV 09/16/24 13:30 Ondansetron HCl (Zofran) 4 mg Q4HP PRN IV NAUSEA / VOMITING 09/16/24 13:30 Docusate Sodium (Colace Capsule) 100 mg BIDPRN PRN PO FOR CONSTIPATION 09/16/24 13:30 Morphine Sulfate 2 mg Q4HPRN PRN IV SEVERE PAIN (7-10 PAIN SCALE) 09/16/24 13:30 Nitroglycerin (Ntrostat Sublingual) 0.4 mg Q5MINP PRN SL FOR CHEST PAIN 09/16/24 13:30 Insulin Glargine (Lantus) 10 units BID@0700,2200 SC 09/16/24 22:00 Methimazole (Tapazole) 10 mg BID PO 09/16/24 22:00 Enoxaparin Sodium (Lovenox) 70 mg Q12HR SC 09/16/24 22:00 Magnesium Sulfate/ Dextrose 100 ml @ 100 mls/hr Q1HR IV 09/16/24 16:00 09/16/24 17:59 Enoxaparin Sodium (Lovenox) 70 mg Q12HR SC 09/16/24 15:15 UNV Magnesium Oxide (Mag-Ox Tablet) 400 mg BID PO 09/16/24 22:00 Review of Systems Constitutional: No symptom reported Ears, Nose, & Throat: No symptom reported Eyes: No symptom reported Neurological: No symptoms reported Pulmonary/Respiratory: No symptom reported Cardiovascular: AFib with RVR, chest pain Gastrointestinal: No symptom reported Genitourinary: No symptom reported Musculoskeletal: No symptom reported Skin: No symptom reported Psychiatric: No symptom reported Endocrine: No symptom reported Hematologic/Lymphatic: No symptom reported Vital Signs Vital Signs Date Time Temp Pulse Resp B/P (MAP) Pulse Ox O2 Delivery O2 Flow Rate FiO2 09/16/24 13:00 105 16 109/43 (65) 93 09/16/24 09:20 Room Air* 0 21 09/16/24 09:06 97.8 97.8 Physical Exam GENERAL: Awake, alert, oriented. LUNGS: Clear. CARDIOVASCULAR: Heart sounds are good. ABDOMEN: Soft. Labs/Diagnostic Data Labs Test 09/16/24 13:51 09/16/24 12:06 09/16/24 09:11 Range/Units White Blood Count 9.2 4.4-10.8 10^3/uL Red Blood Count 4.58 4.0-5.20 10^6/uL Hemoglobin 13.4 12.2-16.2 g/dL Hematocrit 38.7 36.0-46.0 % Mean Corpuscular Volume 84.6 80.0-100.0 fL Mean Corpuscular Hemoglobin 29.3 28.0-32.0 pg Mean Corpuscular Hemoglobin Concent 34.7 32.0-36.0 g/dL Red Cell Distribution Width 11.8 11.8-14.3 % Platelet Count 320 140-450 10^3/uL Mean Platelet Volume 9.0 6.9-10.8 fL Neutrophils (%) (Auto) 51.6 37.0-80.0 % Lymphocytes (%) (Auto) 39.3 10.0-50.0 % Monocytes (%) (Auto) 7.4 0.0-12.0 % Eosinophils (%) (Auto) 0.9 0.0-7.0 % Basophils (%) (Auto) 0.8 0.0-2.0 % Neutrophils # (Auto) 4.7 1.6-8.6 10 ^3/uL Lymphocytes # (Auto) 3.6 0.4-5.4 10 ^3/uL Monocytes # (Auto) 0.7 0-1.3 10 ^3/uL Eosinophils # (Auto) 0.1 0-0.8 10 ^3/uL Basophils # (Auto) 0.1 0-0.2 10 ^3/uL Nucleated Red Blood Cells 0.1 % Hemoglobin A1c 10.2 H <5.7 % A1C Phosphorus Level 3.4 2.4-5.1 mg/dL Magnesium Level 1.9 1.6-2.6 mg/dL Triglycerides Level 150 H < 150 mg/dL Cholesterol Level 167 < 200 mg/dL LDL Cholesterol 82 < 100 mg/dL HDL Cholesterol 58 40-59 mg/dL Beta-Hydroxybutyric Acid 0.560 H < 0.4 mmol/L Thyroid Stimulating Hormone (TSH) < 0.01 L 0.55-4.78 uIU/mL Troponin I High Sensitivity 10 </=34 ng/L Sodium Level 136 136-145 mmol/L Potassium Level 4.0 3.5-5.1 mmol/L Chloride Level 102 98-107 mmol/L Carbon Dioxide Level 18 L 20-31 mmol/L Anion Gap 16 H 5-15 Blood Urea Nitrogen 19 9-23 mg/dL Creatinine 0.86 0.550-1.02 mg/dL Glomerular Filtration Rate Calc 82 >90 mL/min BUN/Creatinine Ratio 22.1 H 10.0-20.0 Serum Glucose 390 H 74-106 mg/dL Calcium Level 10.7 H 8.7-10.4 mg/dL Assessment AFib with RVR, now in sinus rhythm. History of afib on Eliquis. CHADS-VASc score 2. Hyperlipidemia. Graves disease. Diabetes. Plan/Recommendation I agree with your ongoing assessment and care of plan. Patient has been seen by Bhumi Dunaway NP on my behalf, her and I discussed the plan with the patient. Echocardiogram to evaluate cardiac function. Transition antiarrhythmic amiodarone drip to PO 200mg bid. Chads Vasc score 2- therapeutic Lovenox, transition to DOAC on discharge. Monitor electrolytes and replete as needed. Keep magnesium .2.2 and k >4.0. Continue to monitor on telemetry. Additional plan as per the hospital course. Plan discussed with: Patient NYHA Physical activity limitations: NA Date of Service: Sep 16, 2024 Billing Provider: MARY DIAMOND MD Cardiology Common Codes: 59410-QAWGRDM INP/OBS CARE (High) Cardiology Consultation Codes: 16008-YXSXBKCKV CONSULT <45MIN MARY DIAMOND MD Sep 16, 2024 15:45
--- NOTE | 2024-09-17 21:19 | DVHPN2 ---
Progress Note - Dictate Date Seen: Sep 17, 2024 Medical Necessity Reason Pt with a Central, PICC or Fol: No Subjective Patient was seen and evaluated in follow up. Echo shows an EF of 65%. Patient denies any cardiac symptoms. Patient is cardiac stable for discharge. vital signs Vital Sign Date Time Temp Pulse Resp B/P (MAP) Pulse Ox O2 Delivery O2 Flow Rate FiO2 09/17/24 17:00 98.2 81 19 141/69 (93) 97 98.2 09/17/24 08:00 Room Air* 0 21 Total Intake and Output 09/16/24 09/16/24 09/17/24 15:00 23:00 07:00 Intake Total 716.59 ml 506.65 ml 700 ml Output Total 300 ml Balance 716.59 ml 506.65 ml 400 ml objective GENERAL: Awake, alert, oriented. LUNGS: Clear. CARDIOVASCULAR: Heart sounds are good. ABDOMEN: Soft. laboratory and microbiology Laboratory Tests 09/17/24 05:49 Test 09/17/24 05:49 Range/Units Serum Glucose 394 H 74-106 mg/dL Problem List AFib with RVR, now in sinus rhythm. History of afib on Eliquis. CHADS-VASc score 2. Hyperlipidemia. Graves disease. Diabetes. Assessment/Plan Continued all current supportive medical care. Amiodarone PO 200mg bid. Chads Vasc score 2- therapeutic Lovenox, transition to DOAC on discharge. Monitor electrolytes and replete as needed. Keep magnesium .2.2 and k >4.0. Continue to monitor on telemetry. Additional plan as per the hospital course. Plan discussed with: Patient MARY DIAMOND MD Sep 17, 2024 21:18
[2024-09-17] MEDS ORDERED: InsuLIN REG 1unit/0.01ml Soln (100units/ml) SC SCH (22:00)
== END 2024-09-17 17:50 | disposition home or self-care (01) | DRG 308 ==
LOC: ER 09:06 → OVERFLOW 13:30 → TELE-WESTW 21:23
PROVIDERS: ADMIT Internal Medicine; ATTEND Emergency Medicine
DX: I48.91 Unspecified atrial fibrillation (principal); E05.01 Thyrotoxicosis with diffuse goiter with thyrotoxic crisis or storm; I10 Essential (primary) hypertension; J45.909 Unspecified asthma, uncomplicated; E78.5 Hyperlipidemia, unspecified; F32.A Depression, unspecified; E10.9 Type 1 diabetes mellitus without complications; Z79.01 Long term (current) use of anticoagulants; Z88.3 Allergy status to other anti-infective agents; Z88.8 Allergy status to other drugs, medicaments and biological substances; Z79.899 Other long term (current) drug therapy; Z79.2 Long term (current) use of antibiotics; Z79.4 Long term (current) use of insulin; Z90.710 Acquired absence of both cervix and uterus; Z83.3 Family history of diabetes mellitus; Z80.8 Family history of malignant neoplasm of other organs or systems; Z87.891 Personal history of nicotine dependence; Z90.49 Acquired absence of other specified parts of digestive tract
CPT/HCPCS: 36415; 71045; 76536; 80048; 80053; 80061; 81001; 82010; 82962; 83036; 83735; 84100; 84439; 84443; 84481; 84484; 85025; 85379; 93005; 93306; 96365; 96375; 99291; G0378; J1815

== ENCOUNTER → 2024-11-08 | Outpatient (CLI) | payer BC ==
[~2024-11-08] MED LIST changes: +APIX5TAB PO
[2024-11-08 07:20] LABS: Basophils # (auto) 0 10 ^3/uL (0-0.2); Eosinophils # (auto) 0.1 10 ^3/uL (0-0.8); Eosinophils % (auto) 2.8 % (0.0-7.0); Hematocrit 40.6 % (36.0-46.0); Hemoglobin 13.9 g/dL (12.2-16.2); Lymphocytes # (auto) 1.7 10 ^3/uL (0.4-5.4); Lymphocytes % (auto) 35.1 % (10.0-50.0); Mean Corpuscular Hemoglobin 28.9 pg (28.0-32.0); Mean Corpuscular Hgb Conc. 34.2 g/dL (32.0-36.0); Mean Corpuscular Volume 84.4 fL (80.0-100.0); Monocytes # (auto) 0.4 10 ^3/uL (0-1.3); Monocytes % (auto) 7.3 % (0.0-12.0); Neutrophils # (auto) 2.6 10 ^3/uL (1.6-8.6); Neutrophils % (auto) 53.8 % (37.0-80.0); Nucleated Red Blood Cells % 0.1 %; Platelet Count (auto) 266 10^3/uL (140-450); Red Blood Cells 4.81 10^6/uL (4.0-5.20); Red Cell Distribution Width 12.3 % (11.8-14.3); White Blood Cell 4.8 10^3/uL (4.4-10.8)
[2024-11-08 07:45] LABS: Albumin 4.6 g/dL (3.2-4.8); Anion Gap 11 (5-15); BUN/Creatinine Ratio 30.5 (10.0-20.0); Calcium 10.1 mg/dL (8.7-10.4); Carbon Dioxide 25 mmol/L (20-31); Chloride 102 mmol/L (98-107); Potassium 4.5 mmol/L (3.5-5.1); Sodium 138 mmol/L (136-145); Total Protein 7.4 g/dL (5.7-8.2)
[2024-11-08 07:46] LABS: Bilirubin, Total 0.6 mg/dL (0.2-1.0); T3 Total 1.54 ng/mL (0.60-1.81)
[2024-11-08 07:47] LABS: Free T4 (Free Thyroxine) 2.33 ng/dL (0.89-1.76)
[2024-11-08 07:50] LABS: Alanine Aminotransferase 64 U/L (7-40); Alkaline Phosphatase 369 U/L (46-116); Aspartate Aminotransferase 43 U/L (13-40); Blood Urea Nitrogen 25 mg/dL (9-23); Glucose 389 mg/dL (74-106)
[2024-11-08 08:16] LABS: LDL Cholesterol 75 mg/dL (< 100)
[2024-11-08 08:17] LABS: Bilirubin, Direct 0.2 mg/dL (<0.3); Cholesterol 158 mg/dL (< 200)
[2024-11-08 08:21] LABS: HDL Cholesterol 61 mg/dL (40-59); Triglycerides 164 mg/dL (< 150)
[2024-11-08 08:26] LABS: % Iron Saturation 47.2 % (15-50)
[2024-11-08 09:17] LABS: Protein, Urine 10.2 mg/dL (1-14)
[2024-11-08 09:19] LABS: Creatinine, Urine 54.27 mg/dL (30.0-125.0); Urine Protein/Creatinine Ratio 0.19
[2024-11-09 08:07] LABS: Free Thyroxine Index 4.2 (1.2-4.9); Thyroxine (T4) 10.2 ug/dL (4.5-12.0)
== END | disposition home or self-care (01) ==
LOC: LAB 06:07
PROVIDERS: ATTEND Family Medicine
DX: E10.65 Type 1 diabetes mellitus with hyperglycemia (principal); E05.00 Thyrotoxicosis with diffuse goiter without thyrotoxic crisis or storm; Z00.00 Encounter for general adult medical examination without abnormal findings
CPT/HCPCS: 36415; 80053; 80061; 82043; 82248; 82570; 83036; 83540; 83550; 84156; 84439; 84443; 84480; 85025

== ENCOUNTER 2024-12-02 11:42 | Inpatient (IN) | payer BC ==
[2024-12-02] VITALS (9 sets, daily range): BP systolic 117–155; BP diastolic 41–60; PULSE 83–98; RESP 13–25; TEMP 98.5; O2SAT 93–97
[~2024-12-02] VITALS: Ht 149.9 cm; Wt 73.5 kg
--- NOTE | 2024-12-02 12:02 | ED.PDOC ---
HPI Comments 54 y.o female with PMHx of graves disease, AFIB, HLD, and DM, presents to the ED for a chief complaint of chest pain associated with SOB, palpitations and dizziness that started this morning around 6:30am. Patient reports symptoms came onset spontaneously at rest, states no alleviating factors. Patient denies any syncope episodes, nausea, vomiting, fever, chills, or leg swelling. She denies tobacco, alcohol or substance use. Chief Complaint: Palpitations Time Seen by MD: 11:51 Primary Care Provider: TIA Reviewed Notes: Nurses Notes, Medications, Allergies Allergies: Coded Allergies: Naproxen (Verified Allergy, Severe, 07/30/23) Swollen throat Metronidazole (Verified Allergy, Unknown, 07/28/23) Home Meds Active Scripts Apixaban Base (ELIQUIS) 5 Mg Tab, 5 MG PO BID for 30 Days, #60 TAB 2 Refills Prov:LEENA BELTRÁN RESIDENT 09/17/24 Propranolol HCl (Propranolol Hydrochloride) 20 Mg Tab, 10 MG PO TID for 30 Days, #45 TAB Prov:LEENA BELTRÁN RESIDENT 09/17/24 Methimazole (Methimazole) 5 Mg Tab, 10 MG PO BID for 30 Days, #120 TAB 2 Refills Prov:LEENA BELTRÁN RESIDENT 09/17/24 Cephalexin (KEFLEX CAPSULE) 250 Mg Cp, 500 MG PO TID for 10 Days, #30 CAP Prov:RACHID ANN MD 07/29/23 Reported Medications Insulin Lispro-Aabc (Lyumjev) 100 Unit/Ml Inj, SC 07/29/23 Propranolol HCl (Propranolol Hydrochloride) 20 Mg Tab, 20 MG PO DAILY, TAB 07/29/23 Methimazole (Methimazole) 5 Mg Tab, 1 TAB PO TID 07/28/23 Information Source: Patient Mode of Arrival: Ambulatory Severity: Moderate Timing: Hours Duration: Since onset Location: Substernal Radiation: No Radiation Quality: Sharp Onset: At Rest Cardiac Risk Factors: Diabetes History of: None Modifying Factors: Nothing Associated Signs and Symptoms: SOB Past Medical History PAST MEDICAL HISTORY: AFIB, Depression, DM, High Lipids Past Medical History (Other): graves disease Surgical History: Appendectomy, Hysterectomy, Tubal Ligation DIRECTOR OF SCIENCE History: No Pertinent DIRECTOR OF SCIENCE History Family History Family History: Family hx of DM, Family hx of Cancer Social History Smoker: Quit Less Than 1 Year Alcohol: Denies ETOH Use Drugs: Denies Drug Use Lives In: Home Constitutional: denies: chills, diaphoresis, fatigue, fever, malaise, sweats, weakness, others EENTM: denies: blurred vision, double vision, ear bleeding, ear discharge, ear drainage, ear pain, ear ringing, eye pain, eye redness, hearing loss, mouth pain, mouth swelling, nasal discharge, nose bleeding, nose congestion, nose pain, photophobia, tearing, throat pain, throat swelling, voice changes, others Respiratory: reports: SOB at rest, shortness of breath, SOB with excertion; denies: cough, hemoptysis, orthopnea, stridor, wheezing, others Cardiovascular: reports: chest pain, palpitations; denies: dizzy spells, diaphoresis, Dyspnea on exertion, edema, irregular heart beat, left arm pain, lightheadedness, PND, syncope, others Gastrointestinal: denies: abdomen distended, abdominal pain, blood streaked bowels, constipated, diarrhea, dysphagia, difficulty swallowing, hematemesis, melena, nausea, poor appetite, poor fluid intake, rectal bleeding, rectal pain, vomiting, others Genitourinary: denies: abnormal vagina bleeding, burning, dyspareunia, dysuria, flank pain, frequency, hematuria, incontinence, pain, , vagina discharge, urgency, others Neurological: reports: dizziness; denies: fainting, headache, left sided numbness, left sided weakness, numbness, paresthesia, pre-existing deficit, right sided numbness, right sided weakness, seizure, speech problems, tingling, tremors, weakness, others Musculoskeletal: denies: back pain, gout, joint pain, joint swelling, muscle pain, muscle stiffness, neck pain, others Integumetry: denies: bruises, change in color, change in hair/nails, dryness, laceration, lesions, lumps, rash, wounds, others Allergic/Immunocompromised: denies: Difficulty Healing, Frequent Infections, Hives, Itching, others Hematologic/Lymphatic: denies: anemia, blood clots, easy bleeding, easy bruising, swollen glands, others Endocrine: denies: excessive hunger, excessive sweating, excessive thirst, excessive urination, flushing, intolerance to cold, intolerance to heat, unexplained weight gain, unexplained weight loss, others Psychiatric: denies: anxiety, bipolar disorder, depression, hopeless, panic disorder, schizophrenia, sleepless, suicidal, others All Other Systems: Reviewed and Negative Physical Exam General Appearance: Moderate Distress HEENT: Normal ENT Inspection, Pharynx Normal, TMs Normal Neck: Full Range of Motion, Non-Tender, Normal, Normal Inspection Respiratory: Chest Non-Tender, Lungs Clear, No Accessory Muscle Use, No Respiratory Distress, Normal Breath Sounds Cardiovascular: Irregular, No Edema, No JVD, No Murmur, No Gallop, Tachycardia Breast Exam: Deferred Gastrointestinal: No Organomegaly, Non Tender, No Pulsatile Mass, Normal Bowel Sounds, Soft Genitalia: Deferred Pelvic: Deferred Rectal: Deferred Extremities: No calf tenderness, Normal capillary refill, Normal inspection, Normal range of motion, Non-tender, No pedal edema Musculoskeletal : Apperance: Normal Neurologic: Alert, customer experience specialist II-XII nml as Tested, Motor Weakness, Normal Affect, Normal Mood, No Sensory Deficits Cerebellar Function: Normal Reflexes: Normal Skin: Dry, Pallor, Warm Lymphatic: No Adenopathy EKG EKG : Pulse Rate (adult): [address] [place]: Normal Cardiac Rhythm: Afib Block: None ST: Nonsp Was a procedure done? Was a procedure done?: No CP Differential Dx Differential Diagnosis: A-fib Differential Diagnosis: Angina, Chest Wall Pain, Cholelithiasis, Costochondritis, Pericarditis, Pneumonia, Pulmonary Embolus X-Ray, Labs, Meds, VS Vital Signs Date Time Temp Pulse Resp B/P (MAP) Pulse Ox O2 Delivery O2 Flow Rate FiO2 12/02/24 13:30 121/91 12/02/24 12:52 151 12/02/24 12:07 139 26 113/50 (71) 99 12/02/24 12:07 139 12/02/24 11:57 147 12/02/24 11:54 147 12/02/24 11:52 98.3 133 17 144/71 (95) 98 98.3 Lab Test 12/02/24 12:33 Range/Units White Blood Count 10.4 4.4-10.8 10^3/uL Red Blood Count 5.06 4.0-5.20 10^6/uL Hemoglobin 14.7 12.2-16.2 g/dL Hematocrit 42.3 36.0-46.0 % Mean Corpuscular Volume 83.5 80.0-100.0 fL Mean Corpuscular Hemoglobin 29.0 28.0-32.0 pg Mean Corpuscular Hemoglobin Concent 34.7 32.0-36.0 g/dL Red Cell Distribution Width 12.3 11.8-14.3 % Platelet Count 309 140-450 10^3/uL Mean Platelet Volume 9.4 6.9-10.8 fL Neutrophils (%) (Auto) 63.0 37.0-80.0 % Lymphocytes (%) (Auto) 30.7 10.0-50.0 % Monocytes (%) (Auto) 4.6 0.0-12.0 % Eosinophils (%) (Auto) 0.8 0.0-7.0 % Basophils (%) (Auto) 0.9 0.0-2.0 % Neutrophils # (Auto) 6.6 1.6-8.6 10 ^3/uL Lymphocytes # (Auto) 3.2 0.4-5.4 10 ^3/uL Monocytes # (Auto) 0.5 0-1.3 10 ^3/uL Eosinophils # (Auto) 0.1 0-0.8 10 ^3/uL Basophils # (Auto) 0.1 0-0.2 10 ^3/uL Nucleated Red Blood Cells 0.1 % Sodium Level 138 136-145 mmol/L Potassium Level 4.9 3.5-5.1 mmol/L Chloride Level 102 98-107 mmol/L Carbon Dioxide Level 21 20-31 mmol/L Anion Gap 15 5-15 Blood Urea Nitrogen 23 9-23 mg/dL Creatinine 0.84 0.550-1.02 mg/dL Glomerular Filtration Rate Calc 84 >90 mL/min BUN/Creatinine Ratio 27.4 H 10.0-20.0 Serum Glucose 409 *H 74-106 mg/dL Calcium Level 10.6 H 8.7-10.4 mg/dL Magnesium Level 2.1 1.6-2.6 mg/dL Troponin I High Sensitivity 14 </=34 ng/L B-Type Natriuretic Peptide 226.89 0-100 pg/mL Thyroid Stimulating Hormone (TSH) 0.01 L 0.55-4.78 uIU/mL Current Medications Medications (Trade) Dose Ordered Sig/Isaak Route Start Time Stop Time Status Last Admin Diltiazem HCl (Cardizem Injection) 15 mg ONCE ONCE IV 12/02/24 12:45 12/02/24 12:46 DC 12/02/24 13:21 Diltiazem HCl 125 ml @ 5 mls/hr Q24H ONCE IV 12/02/24 12:45 12/03/24 12:44 12/02/24 13:30 IV Hep-Lock was established The patient was given a bolus of diltiazem 15 mg IV push and then placed in the diltiazem drip The thyroid test is negative The BNP is 226.89 The troponin level within normal limits The patient is hyperglycemic at 109 The patient's CBC and chemistry panel are within normal limits At this time, the patient will be started on the diltiazem drip to control the atrial fibrillation with rapid response The patient is being admitted to the hospitalist Images Reviewed?: Images reviewed and evaluated by me Time of 1ST Reevaluation: 11:59 Reevaluation 1ST: Unchanged Patient Education/Counseling: Diagnosis, Treatment, Prognosis Family Education/Counseling: No Family Present Departure 1 Departure Time of Disposition: 13:58 Impression: Primary Impression: Atrial fibrillation with rapid ventricular response Additional Impression: Generalized weakness Disposition: 09 ADMITTED INPATIENT Admit to: [facility] Condition: Fair Critical Care Note Critical Care Time?: Yes (45 min-critical care time only) Stability Stability form required: Yes Unstable for transfer: ICU, CCU, PCU, [facility] (Intensive VS monitoring), ED Physician Assesment (Clinical assesment) Heart Score Heart Score: Heart Score Response (Comments) Value History Moderate Suspicious 1 EKG Repolarization Disturb 1 Age 45-64 1 Risk Factors >3 or Hx ASHD 2 Troponin Normal limit 0 Total 5 I personally scribed for ROSEMARY LONGO MD ([email or web address]) on 12/02/24 at 12:02. Electronically submitted by Sandra Jose ([facility]). ROSEMARY LONGO MD Dec 02, 2024 12:02
--- NOTE | 2024-12-02 12:41 | DVH ---
EXAMINATION: AP portable chest radiograph CLINICAL HISTORY: cp and palpitations COMPARISON: XY CHEST PORTABLE on DOS: 09/16/24 FINDINGS: No dominant consolidations. The costophrenic angles are clear. No sizable pleural effusions or pneumo thorax identified. The cardiomediastinal silhouette appears within normal limits given technique. IMPRESSION: 1. Negative AP chest.
--- NOTE | 2024-12-02 12:54 | ECG ---
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
[2024-12-02 13:15] LABS: Basophils # (auto) 0.1 10 ^3/uL (0-0.2); Basophils % (auto) 0.9 % (0.0-2.0); Eosinophils # (auto) 0.1 10 ^3/uL (0-0.8); Eosinophils % (auto) 0.8 % (0.0-7.0); Hematocrit 42.3 % (36.0-46.0); Hemoglobin 14.7 g/dL (12.2-16.2); Lymphocytes # (auto) 3.2 10 ^3/uL (0.4-5.4); Lymphocytes % (auto) 30.7 % (10.0-50.0); Mean Corpuscular Hgb Conc. 34.7 g/dL (32.0-36.0); Mean Corpuscular Volume 83.5 fL (80.0-100.0); Monocytes # (auto) 0.5 10 ^3/uL (0-1.3); Monocytes % (auto) 4.6 % (0.0-12.0); Neutrophils # (auto) 6.6 10 ^3/uL (1.6-8.6); Nucleated Red Blood Cells % 0.1 %; Platelet Count (auto) 309 10^3/uL (140-450); Red Blood Cells 5.06 10^6/uL (4.0-5.20); Red Cell Distribution Width 12.3 % (11.8-14.3); White Blood Cell 10.4 10^3/uL (4.4-10.8)
[2024-12-02] MEDS: dilTIAZem 25 MG/5 ML VIAL IV ONE (13:21)
[2024-12-02 13:23] LABS: Chloride 102 mmol/L (98-107); Potassium 4.9 mmol/L (3.5-5.1); Sodium 138 mmol/L (136-145)
[2024-12-02 13:24] LABS: Anion Gap 15 (5-15); Carbon Dioxide 21 mmol/L (20-31)
[2024-12-02 13:28] LABS: Calcium 10.6 mg/dL (8.7-10.4)
[2024-12-02 13:30] LABS: Magnesium 2.1 mg/dL (1.6-2.6)
[2024-12-02] MEDS: dilTIAZem 125mg/125ml BAG KIT 125 ML IV ONE (13:30)
[2024-12-02 13:34] LABS: Glucose 409 mg/dL (74-106)
[2024-12-02 13:37] LABS: BUN/Creatinine Ratio 27.4 (10.0-20.0); Blood Urea Nitrogen 23 mg/dL (9-23)
[2024-12-02] MEDS: InsuLIN REG 1unit/0.01ml Soln (100units/ml) IV ONE (14:04)
--- NOTE | 2024-12-02 14:33 | DVHHP2 ---
History of Present Illness Reason for Visit: Chest pain and shortness of the breath History of Present Illness 54-year-old female past medical history of Graves disease AFib hyperlipidemia diabetes depression surgical history appendectomy hysterectomy tubal ligation chief complaint patient state she woke up this morning around 7:00 a.m. and she knows the heart rate was about 127 so she took 15 mg of propranolol and despite this she continued to have pressure on her chest in his heart rate continued to be elevated and she had not gotten better so she took a second dose today at 1 0:00 a.m.. She knows the heart rate has been fluctuating all morning she is on Methimazole 10 mg p.o. t.i.d. she states she did see her endocrine doctor two weeks ago and told her TSH was normal she does complain of chest pain shortness of the breath in his midsternal chest patient states she is a type 1 diabetic so she takes Lantus 28 units in the morning 20 units at night along with sliding scale of Humalog when evaluating patient's chart she was given regular insulin Cardizem was provided along with the drip CBC was unremarkable glucose was found to be for 0 nine she did not take her morning insulin calcium was 10.6 BNP was 226.89 but chest x-ray was unremarkable troponin was negative TSH was 0.01 but no free T3 and T4 was done so we will order patient also we will be order echocardiogram we will admit to deal you for AFib with RVR continue home med Eliquis. We will likely need to adjust patient's medication pain on the rest of the TSH labs Past Medical History See HPI above Past Surgical History See HPI above Family History Reviewed, non-contributory to the management of this case. Past Social History The patient lives at home, denies smoking, alcohol or illicit drugs abuse. Review of Systems Constitutional: No: Fever, Chills, Sweats, Weakness, Malaise, Other Eyes: No: Pain, Vision change, Conjunctivae inflammation, Eyelid inflammation, Other, Redness ENT: No: Ear pain, Ear discharge, Nose pain, Nose discharge, Nose congestion, Mouth pain, Mouth swelling, Throat pain, Throat swelling, Other Respiratory: Shortness of breath, SOB with excertion; No: Cough, Dry, Wheezing, Hemoptysis, Pleuritic Pain, Sputum, Wheezing, Other Cardiovascular: Chest Pain, Palpitations; No: Orthopnea, Paroxysmal Noc. Dyspnea, Edema, Lt Headedness, Other Gastrointestinal: No: Nausea, Vomiting, Abdominal Pain, Diarrhea, Constipation, Melena, Hematochezia, Other Genitourinary: No Dysuria, No Frequency, No Incontinence, No Hematuria, No Retention, No Other Musculoskeletal: No: other, neck pain, shoulder pain, arm pain, back pain, hand pain, leg pain, foot pain Skin: No: Rash, Lesions, Jaundice, Bruising, Other Neurological: No: Weakness, Numbness, Incoordination, Change in speech, Confu darin, Seizures, Other Allergies: Coded Allergies: Naproxen (Verified Allergy, Severe, 07/30/23) Swollen throat Metronidazole (Verified Allergy, Unknown, 07/28/23) Exam Vital Signs Vital Signs Date Time Temp Pulse Resp B/P (MAP) Pulse Ox O2 Delivery O2 Flow Rate FiO2 12/02/24 14:15 101 15 119/57 (77) 99 12/02/24 14:00 97.5 97.5 12/02/24 13:30 Room Air* 0 21 General Appearance: Alert, Oriented X3, Cooperative, No acute distress HEENT: Atraumatic, PERRLA, EOMI, Mucous membr. moist/pink Respiratory: Clear to auscultation, Normal air movement Cardiovascular: Other (Irregular irregular) Abdominal: Normal bowel sounds, Soft, No tenderness, No hepatospenomegaly, No masses Extremities: No clubbing, No cyanosis, No edema, Normal pulses, No tenderness/swelling Skin: No rashes, No breakdown, No significant lesion Neuro: Normal gait, Normal speech, Strength at 5/5 X4 ext, Normal tone, Sensation intact, Cranial nerves 3-12 NL Psych/Mental Status: Mental status NL, Mood NL Labs/Xrays I reviewed labs, imaging CT scan abdomen pelvis, EKG and all diagnostic studies on this patient from ED records and the medical chart Chest x-ray unremarkable Labs Test 12/02/24 14:03 12/02/24 13:41 12/02/24 12:33 Range/Units POC Glucose 360 H 70-106 mg/dl Troponin I High Sensitivity 11 </=34 ng/L White Blood Count 10.4 4.4-10.8 10^3/uL Red Blood Count 5.06 4.0-5.20 10^6/uL Hemoglobin 14.7 12.2-16.2 g/dL Hematocrit 42.3 36.0-46.0 % Mean Corpuscular Volume 83.5 80.0-100.0 fL Mean Corpuscular Hemoglobin 29.0 28.0-32.0 pg Mean Corpuscular Hemoglobin Concent 34.7 32.0-36.0 g/dL Red Cell Distribution Width 12.3 11.8-14.3 % Platelet Count 309 140-450 10^3/uL Mean Platelet Volume 9.4 6.9-10.8 fL Neutrophils (%) (Auto) 63.0 37.0-80.0 % Lymphocytes (%) (Auto) 30.7 10.0-50.0 % Monocytes (%) (Auto) 4.6 0.0-12.0 % Eosinophils (%) (Auto) 0.8 0.0-7.0 % Basophils (%) (Auto) 0.9 0.0-2.0 % Neutrophils # (Auto) 6.6 1.6-8.6 10 ^3/uL Lymphocytes # (Auto) 3.2 0.4-5.4 10 ^3/uL Monocytes # (Auto) 0.5 0-1.3 10 ^3/uL Eosinophils # (Auto) 0.1 0-0.8 10 ^3/uL Basophils # (Auto) 0.1 0-0.2 10 ^3/uL Nucleated Red Blood Cells 0.1 % Sodium Level 138 136-145 mmol/L Potassium Level 4.9 3.5-5.1 mmol/L Chloride Level 102 98-107 mmol/L Carbon Dioxide Level 21 20-31 mmol/L Anion Gap 15 5-15 Blood Urea Nitrogen 23 9-23 mg/dL Creatinine 0.84 0.550-1.02 mg/dL Glomerular Filtration Rate Calc 84 >90 mL/min BUN/Creatinine Ratio 27.4 H 10.0-20.0 Serum Glucose 409 *H 74-106 mg/dL Calcium Level 10.6 H 8.7-10.4 mg/dL Magnesium Level 2.1 1.6-2.6 mg/dL B-Type Natriuretic Peptide 226.89 0-100 pg/mL Thyroid Stimulating Hormone (TSH) 0.01 L 0.55-4.78 uIU/mL Assessment/Plan Assessment/Plan acute afib with rvr can be related to Graves disease Continue Eliquis Continue Cardizem drip Order Mag and phos follow up results graves disease current tsh 0.01 will ordered free t3 and t4 cont cardizem drip for now Patient currently taking methamazole and propranolol We will likely need to readjust dose according to T3 and t4 uncontrolled type 1 dm without dka ordered accucheck ac/hs with sliding scale insulin provided regular Order beta OH follow up results acute hypocalcemia cont ivf for now acute elevation in bnp likely from afib rvr ordered echo fu results current cxr negative chronic problems hld dm graves disease depression fen/ppx diet ivf scd lovenox no gi ppx since no hx of gerd or gi bleed plan admit to [facility] cont cardizem drip for now Plan discussed with: Patient, Son Date of Service: Dec 02, 2024 Billing Provider: FRANCISCA RODGERS DNP Common Visit Codes: 44213-[id number] INP/OBS CARE (HIGH), [id number] CARE 30- 74 MIN (Total critical care time: Approximately 45 minutes This critical care time included obtaining a history; examining the patient; pulse oximetry; ordering and review of studies; arranging urgent treatment with development of a management plan; evaluation of patient's response to treatment; frequent reassessment; and, discussions with other providers.) FRANCISCA RODGERS DNP Dec 02, 2024 14:33
--- NOTE | 2024-12-02 14:54 | ECG ---
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
[2024-12-02] MEDS ORDERED: NITROGLYCERIN 0.4 MG SL TAB SL PRN (16:00)
[2024-12-02] MEDS ORDERED: MORPHINE SULFATE INJ 2 MG/ml SYRG IV PRN (16:00)
[2024-12-02] MEDS ORDERED: DEXTROSE (50%) 50ML SYRG IV PRN (16:00)
[2024-12-02] MEDS ORDERED: ONDANSETRON HCL 4 MG/2 ML VIAL IV PRN (16:00)
[2024-12-02] MEDS ORDERED: DOCUSATE SOD 100 MG CAP PO PRN (16:00)
[2024-12-02 16:38] LABS: Magnesium 1.9 mg/dL (1.6-2.6)
[2024-12-02] MEDS: SODIUM CHLORIDE 0.9% 1,000 ML IV SCH (16:40)
[2024-12-02 16:46] LABS: Phosphorus 5.3 mg/dL (2.4-5.1)
[2024-12-02] MEDS: ACCU-CHEK COMFORT CURVE STRIP VI SCH (17:16)
[2024-12-02] MEDS: InsuLIN REG 1unit/0.01ml Soln (100units/ml) SC SCH ×2 (17:20→22:04)
[2024-12-02] MEDS: methIMAzole 5 MG TAB PO SCH (21:50)
[2024-12-02] MEDS: APIXABAN 5 MG TAB PO SCH (21:50)
[2024-12-02] MEDS: PROPRANOLOL HCL 20 MG TAB PO SCH (21:53)
[2024-12-02] MEDS: INSULIN LANTUS (GLARGINE) 1 /0.01ml (100units/ml) SC SCH (22:04)
[2024-12-03 05:23] LABS: Basophils # (auto) 0 10 ^3/uL (0-0.2); Basophils % (auto) 0.6 % (0.0-2.0); Eosinophils # (auto) 0.1 10 ^3/uL (0-0.8); Eosinophils % (auto) 2.7 % (0.0-7.0); Hematocrit 37.1 % (36.0-46.0); Hemoglobin 12.8 g/dL (12.2-16.2); Lymphocytes # (auto) 2.6 10 ^3/uL (0.4-5.4); Lymphocytes % (auto) 48.5 % (10.0-50.0); Mean Corpuscular Hemoglobin 29.2 pg (28.0-32.0); Mean Corpuscular Hgb Conc. 34.6 g/dL (32.0-36.0); Mean Corpuscular Volume 84.3 fL (80.0-100.0); Monocytes # (auto) 0.5 10 ^3/uL (0-1.3); Monocytes % (auto) 9.4 % (0.0-12.0); Neutrophils # (auto) 2.1 10 ^3/uL (1.6-8.6); Neutrophils % (auto) 38.8 % (37.0-80.0); Platelet Count (auto) 228 10^3/uL (140-450); Red Cell Distribution Width 12.2 % (11.8-14.3); White Blood Cell 5.4 10^3/uL (4.4-10.8)
[2024-12-03 05:40] LABS: Alanine Aminotransferase 112 U/L (7-40); Albumin 3.8 g/dL (3.2-4.8); Alkaline Phosphatase 411 U/L (46-116); Anion Gap 11 (5-15); Aspartate Aminotransferase 48 U/L (<34); BUN/Creatinine Ratio 31.7 (10.0-20.0); Bilirubin, Total 0.4 mg/dL (0.2-1.0); Blood Urea Nitrogen 20 mg/dL (9-23); Calcium 10.1 mg/dL (8.7-10.4); Carbon Dioxide 23 mmol/L (20-31); Chloride 106 mmol/L (98-107); Glucose 293 mg/dL (74-106); Potassium 4.2 mmol/L (3.5-5.1); Sodium 140 mmol/L (136-145); Total Protein 6.3 g/dL (5.7-8.2)
[2024-12-03] MEDS: CEPHALEXIN 250 MG CAP PO SCH (06:50)
[2024-12-03 08:00] VITALS: PULSE 84; RESP 14; O2SAT 96
[2024-12-03 08:55] LABS: INR 0.96 (0.9-1.15); Partial Thromboplastin Time 26.1 SEC (24.5-34.5); Prothrombin Time 10.2 sec (9.3-11.8)
[2024-12-03] MEDS ORDERED: PROPRANOLOL HCL 20 MG TAB PO SCH ×2 (10:00→22:00)
[2024-12-03] MEDS ORDERED: methIMAzole 5 MG TAB PO SCH (10:00)
[2024-12-03 10:31] LABS: T3 Total 2.46 ng/mL (0.60-1.81)
[2024-12-03 10:34] LABS: Amphetamine Screen, Urine Neg (NEGATIVE); Barbiturate Scree,Urine Neg (NEGATIVE); Benzodiazephine Screen, Urine Neg (NEGATIVE); Cannabinoid Screen, Urine Neg (NEGATIVE); Cocaine Screen, Urine Neg (NEGATIVE); Opiate Scree,Urine Neg (NEGATIVE); Phencyclidine Screen, Urine Neg (NEGATIVE)
[2024-12-03 10:38] LABS: Urine Bacteria FEW /hpf (None Seen); Urine Blood Negative /uL (Negative); Urine Budding Yeast OCCASIONAL /hpf (None Seen); Urine Clarity Clear (Clear); Urine Color Yellow (Yellow); Urine Mucus FEW (None Seen); Urine Protein, UAD Negative (Negative); Urine Specific Gravity 1.031 (1.001-1.035); Urine Squamous Epithelial Cell FEW /hpf (<5); Urine Urobilinogen Normal (Negative); Urine WBC < 1 /HPF (0-5); Urine pH 5.5 (5.0-9.0)
[2024-12-03 10:43] LABS: Free T3 11.41 pg/mL (2.3-4.2)
[2024-12-03 10:44] LABS: Free T4 (Free Thyroxine) 3.77 ng/dL (0.89-1.76)
[2024-12-03] MEDS: methIMAzole 5 MG TAB PO SCH ×2 (11:01→21:51)
[2024-12-03] MEDS: ACETAMINOPHEN 325 MG TAB PO PRN (11:02)
[2024-12-03 11:04] LABS: COVID19 ANTIGEN SOFIA FIA NEGATIVE (NEGATIVE); Rapid Influenza A Negative (Negative); Rapid Influenza B Negative (Negative)
[2024-12-03 12:56] VITALS: BP 137/53; PULSE 84; RESP 14; O2SAT 97
[2024-12-03] MEDS ORDERED: INSUINJ37 SC (13:27)
[2024-12-03] MEDS ORDERED: ATOR10TA (13:27)
--- NOTE | 2024-12-03 13:44 | DVHPNRES ---
Progress Note Date Seen: Dec 03, 2024 Resident Creating Document: GUI BRAMBILA RESIDENT Medical Necessity Reason Pt with a Central, PICC or Fol: No Subjective Review of Systems This is a 54-year-old female with Graves disease on methimazole and propranolol, diabetes type 1 on Lantus 28 and Humalog sliding scale, hyperlipidemia, depression, paroxysmal atrial fibrillation who presented to the ER with a chief complaint of palpitations, shortness of breaths and chest pain for 1 day. Patient reports waking up on the morning of 12/02 with palpitations, shortness of breaths and her pulse was around 150 beats per minute. She reported midsternal chest pain, squeezing in nature, nonradiating associated with dizziness and shortness of breath on exertion. She reports chronic diarrhea, feeling of warmth, anxiety. Patient follows Dr. Nunez and was recently in his office 2 weeks earlier when her free T4 was around 2.5. On arrival to the ER, EKG showed AFib with RVR, patient was started on diltiazem IV drip following which the patient converted to sinus rhythm. On my examination, telemetry shows NSR, pulse 80s beats per minute. Troponin unremarkable. BNP 2 2 6. Mild transaminitis. Patient seen and examined in the ER. Reports feeling better, she is on room air. Denies chest pain at this time. Objective vital signs Vital Sign Date Time Temp Pulse Resp B/P (MAP) Pulse Ox O2 Delivery O2 Flow Rate FiO2 12/03/24 12:56 84 14 137/53 (81) 97 12/03/24 08:00 98.6 98.6 12/03/24 08:00 Room Air* 0 21 Total Intake and Output 12/02/24 12/02/24 12/03/24 15:00 23:00 07:00 Intake Total 7.5 ml 6.66 ml Balance 7.5 ml 6.66 ml medications Current Medications Medications Dose Ordered Sig/Isaak Route Start Time Stop Time Status Last Admin Dose Admin Diagnostic Test (Pha) 1 strip ACHS 12/02/24 17:00 12/03/24 11:42 1 STRIP Insulin Human Regular HS SC 12/02/24 22:00 12/02/24 22:04 8 UNITS Insulin Human Regular AC SC 12/02/24 17:00 12/03/24 11:42 9 UNITS Dextrose 50 ml UD PRN IV 12/02/24 16:00 Sodium Chloride 1,000 ml @ 100 mls/hr Q10H IV 12/02/24 16:00 12/03/24 02:00 100 MLS/HR Ondansetron HCl 4 mg Q4HP PRN IV 12/02/24 16:00 Docusate Sodium 100 mg BIDPRN PRN PO 12/02/24 16:00 Morphine Sulfate 2 mg Q4HPRN PRN IV 12/02/24 16:00 Nitroglycerin 0.4 mg Q5MINP PRN SL 12/02/24 16:00 Apixaban 5 mg BID PO 12/02/24 22:00 12/03/24 11:01 5 MG Insulin Glargine 28 units BID@0700,2200 SC 12/02/24 22:00 12/03/24 07:00 28 UNITS Methimazole 5 mg BID PO 12/03/24 10:15 12/03/24 11:01 5 MG Propranolol HCl 10 mg BID PO 12/03/24 22:00 Acetaminophen 650 mg Q6HP PRN PO 12/03/24 10:15 12/03/24 11:02 650 MG Examination Patient lying in bed, in no acute distress General: Well-built, afebrile, palor, mucosae are moist Cardiovascular: Regular S1 and S2. No murmurs, gallops or rubs. No JVD elevation. No pedal edema Respiratory: Normal B/L air entry on room air. Clear lung sounds on auscultation Abdomen: Soft, nontender, nondistended, normoactive bowel sounds, no rebound tenderness, no organomegaly, no masses Genitourinary: Deferred MSK/skin: Mobilizes 4 limbs. Skin is dry and warm Neurological: No motor, no sensitive deficits, normal speech. Pupils are isocoric and reactive. 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 b.i.d. Uncontrolled Diabetes mellitus type 1-A1c 9.2 Continue home medication Lantus 28 units daily Moderate sliding scale Carbohydrate diet Urine protein creatinine ratio pending Transaminitis Liver ultrasound pending History of depression-no HI/SI Monitor. Dyslipidemia Atorvastatin on hold given transaminitis Plan discussed with patient in which all questions have been answered Goals of care discussed for more than 20 minutes, full code status Case discussed with Dr. Max Plan discussed with: Patient My Orders My Orders Orders - GUI BRAMBILA Procedure Category Date Status Time Methimazole Tab PHA 12/03/24 In Process (Tapazole) 10:15 Propranolol Hcl PHA 12/03/24 In Process Tablet (Inderal 22:00 Acetaminophen Tablet PHA 12/03/24 In Process (Tylenol Tablet) 10:15 * Endocrinology CONS 12/03/24 Transmitted Consult 10:47 GUI BRAMBILA RESIDENT Dec 03, 2024 13:44
[2024-12-03] MEDS ORDERED: methIMAzole 5 MG TAB PO ONE (14:00)
[2024-12-03 14:27] VITALS: BP 134/64; PULSE 83; RESP 14; TEMP 98.4
[2024-12-03] MEDS: methIMAzole 5 MG TAB PO ONE (15:40)
[2024-12-03] MEDS: PROPRANOLOL HCL 20 MG TAB PO SCH (15:40)
--- NOTE | 2024-12-03 17:31 | DVH ---
Technique: Real-time ultrasound imaging of the abdomen was performed with grayscale and color Doppler . Indication: Transaminitis Comparison: None Findings: Liver measures 17.6cm. It is increased in echogenicity and echotexture without focal mass. Portal ve in is normal in caliber and demonstrates normal hepatopetal flow. Gallbladder demonstrates no evidence for cholelithiasis. There is no pericholecystic fluid. The wall thickness is normal. The common bile duct measures 4 mm. No intrahepatic biliary ductal dilatation. The right kidney measures 9.8 cm. No hydronephrosis or sonographic evidence of nephrolithiasis. The visualized portion of the pancreas is unremarkable. The visualized portion of the IVC is unremarkable. Impression: Echogenic liver which can be seen with hepatic steatosis, cirrhosis. No evidence for cholelithiasis.
[2024-12-03 20:00] VITALS: PULSE 78
[2024-12-03 21:00] VITALS: BP 136/57; PULSE 77; RESP 16; TEMP 98; O2SAT 96
[2024-12-03] MEDS: INSULIN LANTUS (GLARGINE) 1 /0.01ml (100units/ml) SC SCH (21:46)
[2024-12-03 22:00] LABS: Protein, Urine 17.5 mg/dL (1-14)
[2024-12-03 22:03] LABS: Creatinine, Urine 94.67 mg/dL (30.0-125.0); Urine Protein/Creatinine Ratio 0.18
--- NOTE | 2024-12-04 00:14 | DVHINCON2 ---
Date of service: Dec 04, 2024 Reason for Consultation graves' disease History of Present Illness 54yo F w/ hx of type I DM, Graves' disease, atrial fibrillation who presented to hospital with dyspnea. Patient describes being in her normal state of health. On AM of admission patient had awoken in acute onset dyspnea and palpitations. Patient report HR in 150s. Upon presentation to ED, patient found to be in Afib w/ RVR. Required dilt gtt briefly then converted to NSR. Labs notable for TSH 0.01, FT4 3.77. Elevations seen in alk phos, ALT, AST. Patient has longstanding hx of Graves' disease c/b multiple Afib hospitalizations. She follows with me as an outpatient last seen in late October 2024. As an outpatient she had been maintained on MMI 10mg tid and propranolol 10mg bid. She denies missing any doses. Her outpatient free T4 levels had been downtrending to most recently free T4 2.3 on 11/08/24. Past Medical History Problems Medical Problems: (1) Atrial fibrillation with rapid ventricular response Status: Acute (2) Generalized weakness Status: Acute Family History: Diabetes mellitus G8 FATHER FH: cancer G8 MOTHER G8 FATHER Allergies: Coded Allergies: Naproxen (Verified Allergy, Severe, 07/30/23) Swollen throat Metronidazole (Verified Allergy, Unknown, 07/28/23) Home Meds Active Scripts Propranolol HCl (Propranolol Hydrochloride) 20 Mg Tab, 10 MG PO TID for 30 Days, #45 TAB Prov:LEENA BELTRÁN RESIDENT 09/17/24 Methimazole (Methimazole) 5 Mg Tab, 10 MG PO BID for 30 Days, #120 TAB 2 Refills Prov:LEENA BELTRÁN RESIDENT 09/17/24 Reported Medications Insulin Glargine (Lantus Solostar) 100 Unit/Ml Inj, 20 UNIT SC BID 12/03/24 Atorvastatin Calcium (Lipitor) 10 Mg Tab 12/03/24 Propranolol HCl (Propranolol Hydrochloride) 20 Mg Tab, 20 MG PO DAILY, TAB 07/29/23 Methimazole (Methimazole) 5 Mg Tab, 1 TAB PO TID 07/28/23 Current Medications Current Medications Medications (Trade) Dose Ordered Sig/Isaak Route PRN Reason Start Time Stop Time Status Last Admin Cephalexin (Keflex Capsule) 500 mg TID PO 12/03/24 06:00 12/03/24 10:53 DC 12/03/24 06:50 Methimazole (Tapazole) 10 mg BID PO 12/03/24 10:00 12/03/24 10:18 DC Propranolol HCl (Inderal Tablet) 20 mg DAILY PO 12/03/24 10:00 12/03/24 08:21 DC Methimazole (Tapazole) 5 mg BID PO 12/03/24 10:15 12/03/24 13:52 DC 12/03/24 11:01 Propranolol HCl (Inderal Tablet) 10 mg BID PO 12/03/24 22:00 12/03/24 13:57 DC Acetaminophen (Tylenol Tablet) 650 mg Q6HP PRN PO MILD PAIN (1-3 PAIN SCALE) 12/03/24 10:15 12/03/24 11:02 Propranolol HCl (Inderal Tablet) 10 mg TID PO 12/03/24 14:00 12/03/24 21:52 Methimazole (Tapazole) 10 mg Q8HR PO 12/03/24 22:00 12/03/24 21:51 Insulin Glargine (Lantus) 28 units HS SC 12/03/24 22:00 12/03/24 21:46 Cholestyramine Resin (Questran Powder) 4 gm Q6HR PO 12/04/24 06:00 Review of Systems Negative except stated in HPI Vital Signs Vital Signs Date Time Temp Pulse Resp B/P (MAP) Pulse Ox O2 Delivery O2 Flow Rate FiO2 12/03/24 21:52 77 136/57 12/03/24 21:00 98.0 16 96 98.0 12/03/24 08:00 Room Air* 0 21 Physical Exam Gen - no acute distress HEENT - no thyromegaly CV - RRR, no m/r/g Resp - CTAB Ext - no edema Labs/Diagnostic Data Labs Test 12/03/24 21:22 12/03/24 09:50 12/03/24 09:48 12/03/24 04:54 Range/Units POC Glucose 282 H 70-106 mg/dl Urine Color Yellow Yellow Urine Clarity Clear Clear Urine pH 5.5 5.0-9.0 Urine Specific [place] 1.031 1.001-1.035 Urine Protein Negative Negative Urine Ketones Negative Negative Urine Blood Negative Negative /uL Urine Nitrite Negative Negative Urine Bilirubin Negative Negative Urine Urobilinogen Normal Negative mg/dL Urine Leukocyte Esterase Negative Negative /uL Urine RBC <1 0 - 4 /hpf Urine Microscopic WBC < 1 0-5 /HPF Urine Squamous Epithelial Cells Few <5 /hpf Urine Bacteria Few H None Seen /hpf Urine Mucus Few None Seen Urine Yeast (Budding) Occasional None Seen /hpf Urine Creatinine 94.67 30.0-125.0 mg/dL Urine Protein/Creatinine Ratio 0.18 Urine Glucose 4+ H Normal mg/dL Urine Total Protein 17.5 H 1-14 mg/dL Urine Opiates Screen Neg NEGATIVE Urine Fentanyl Screen Neg NEGATIVE Urine Barbiturates Screen Neg NEGATIVE Urine Phencyclidine Screen Neg NEGATIVE Urine Amphetamines Screen Neg NEGATIVE Urine Benzodiazepines Screen Neg NEGATIVE Urine Cocaine Screen Neg NEGATIVE Urine Cannabinoids Screen Neg NEGATIVE Influenza Type A Antigen Negative Negative Influenza Type B Antigen Negative Negative SARS-CoV-2 Antigen (Rapid) Negative NEGATIVE White Blood Count 5.4 # 4.4-10.8 10^3/uL Red Blood Count 4.40 4.0-5.20 10^6/uL Hemoglobin 12.8 12.2-16.2 g/dL Hematocrit 37.1 # 36.0-46.0 % Mean Corpuscular Volume 84.3 80.0-100.0 fL Mean Corpuscular Hemoglobin 29.2 28.0-32.0 pg Mean Corpuscular Hemoglobin Concent 34.6 32.0-36.0 g/dL Red Cell Distribution Width 12.2 11.8-14.3 % Platelet Count 228 140-450 10^3/uL Mean Platelet Volume 8.9 6.9-10.8 fL Neutrophils (%) (Auto) 38.8 37.0-80.0 % Lymphocytes (%) (Auto) 48.5 10.0-50.0 % Monocytes (%) (Auto) 9.4 0.0-12.0 % Eosinophils (%) (Auto) 2.7 0.0-7.0 % Basophils (%) (Auto) 0.6 0.0-2.0 % Neutrophils # (Auto) 2.1 1.6-8.6 10 ^3/uL Lymphocytes # (Auto) 2.6 0.4-5.4 10 ^3/uL Monocytes # (Auto) 0.5 0-1.3 10 ^3/uL Eosinophils # (Auto) 0.1 0-0.8 10 ^3/uL Basophils # (Auto) 0 0-0.2 10 ^3/uL Nucleated Red Blood Cells 0.0 % Prothrombin Time 10.2 9.3-11.8 sec Prothrombin Time INR 0.96 0.9-1.15 Activated Partial Thromboplast Time 26.1 24.5-34.5 SEC Sodium Level 140 136-145 mmol/L Potassium Level 4.2 3.5-5.1 mmol/L Chloride Level 106 98-107 mmol/L Carbon Dioxide Level 23 20-31 mmol/L Anion Gap 11 5-15 Blood Urea Nitrogen 20 9-23 mg/dL Creatinine 0.63 0.550-1.02 mg/dL Glomerular Filtration Rate Calc 107 >90 mL/min BUN/Creatinine Ratio 31.7 H 10.0-20.0 Serum Glucose 293 H 74-106 mg/dL Calcium Level 10.1 8.7-10.4 mg/dL Total Bilirubin 0.4 0.2-1.0 mg/dL Aspartate Amino Transferase (AST) 48 H <34 U/L Alanine Aminotransferase (ALT) 112 H 7-40 U/L Alkaline Phosphatase 411 H 46-116 U/L Total Protein 6.3 5.7-8.2 g/dL Albumin 3.8 3.2-4.8 g/dL Vitamin B12 Level 560 211-911 pg/mL Vitamin D 25-Hydroxy 41.0 30.0-100 ng/mL Total Triiodothyronine (TT3) 2.46 H 0.60-1.81 ng/mL Test 12/02/24 21:59 12/02/24 16:06 12/02/24 12:33 Range/Units Troponin I High Sensitivity 14 </=34 ng/L Phosphorus Level 5.3 H 2.4-5.1 mg/dL Magnesium Level 1.9 1.6-2.6 mg/dL Beta-Hydroxybutyric Acid 0.940 H < 0.4 mmol/L Free Thyroxine (T4) Calculated 3.77 H 0.89-1.76 ng/dL Free Triiodothyronine (T3) pg/mL 11.41 H 2.3-4.2 pg/mL B-Type Natriuretic Peptide 226.89 0-100 pg/mL Thyroid Stimulating Hormone (TSH) 0.01 L 0.55-4.78 uIU/mL Assessment # Graves' disease # Afib with RVR # Type I DM Acute exacerbation of underlying hyperthyroidism of unclear etiology. Potentially dehydration induced given elevated BUN/Cr. Will optimize thionamide therapy No clinical manifestations of impending or current thyroid storm. - Increase MMI to 10mg tid - Increase propranolol to 10mg tid - Start cholestyramine 4g q6h - Order free T4 q48h Plan discussed with: Patient KEM SANTIAGO MD Dec 04, 2024 00:14
[2024-12-04 01:00] VITALS: BP 141/65; PULSE 87; RESP 16; TEMP 97.9; O2SAT 97
[2024-12-04 05:00] VITALS: BP 128/59; PULSE 78; RESP 16; TEMP 98.1; O2SAT 96
[2024-12-04] MEDS: CHOLESTYRAMINE 4 GM POWDER PO SCH (06:19)
--- NOTE | 2024-12-04 06:51 | ECG ---
[facility] Test Date: 2024-12-02 Test Time: 11:54:02 Pat Name: IDALIA NOEL Department: TRIAGE Room: 0297T B Gender: F Wave Solder Offbearer: LINUS : 1970 Requested By: ROSEMARY LONGO Order Number: [id number] Reading MD: Zeke Hebert Measurements Intervals [place] Rate: 147 P: 0 [place]: 0 QRS: -46 QRSD: 77 T: 85 QT: 299 QTc: 468 Interpretive Statements Atrial fibrillation Left anterior fascicular block Consider left ventricular hypertrophy Anterior Q waves, possibly due to LVH Baseline wander in lead(s) II,III,aVL,aVF Electronically Signed On 12-04-2024 17:31:28 PDT by Zeke Hebert Please click the below link to view image of tracing.
[2024-12-04 07:34] LABS: Albumin 4.2 g/dL (3.2-4.8); Anion Gap 11 (5-15); Blood Urea Nitrogen 17 mg/dL (9-23); Calcium 9.8 mg/dL (8.7-10.4); Carbon Dioxide 26 mmol/L (20-31); Chloride 104 mmol/L (98-107); Potassium 3.9 mmol/L (3.5-5.1); Sodium 141 mmol/L (136-145); Total Protein 6.9 g/dL (5.7-8.2)
[2024-12-04 07:35] LABS: Alanine Aminotransferase 103 U/L (7-40); Alkaline Phosphatase 438 U/L (46-116); Aspartate Aminotransferase 62 U/L (<34); Bilirubin, Total 0.5 mg/dL (0.2-1.0); Glucose 116 mg/dL (74-106)
[2024-12-04 08:00] VITALS: PULSE 78; PULSE 80; RESP 16
[2024-12-04 09:00] VITALS: BP 137/66; PULSE 78; RESP 16; TEMP 98.1; O2SAT 98
[2024-12-04 13:00] VITALS: BP 129/52; PULSE 77; RESP 16; TEMP 97.9; O2SAT 97
[2024-12-04] MEDS ORDERED: METH5TAB98 PO (14:24)
[2024-12-04] MEDS ORDERED: APIX5TAB PO (14:24)
[2024-12-04] MEDS ORDERED: PROP1TAB53 PO (14:24)
--- NOTE | 2024-12-04 15:52 | DVHDSRES ---
Discharge Summary Date of Admission Resident Creating Document: GUI BRAMBILA RESIDENT Dec 02, 2024 at 16:00 Date of Discharge: Dec 04, 2024 Labs/Diagnostic Data: Laboratory Results Test 12/04/24 11:45 12/04/24 06:34 12/03/24 09:50 12/03/24 09:48 POC Glucose 192 mg/dl (70-106) Sodium Level 141 mmol/L (136-145) Potassium Level 3.9 mmol/L (3.5-5.1) Chloride Level 104 mmol/L (98-107) Carbon Dioxide Level 26 mmol/L (20-31) Anion Gap 11 (5-15) Blood Urea Nitrogen 17 mg/dL (9-23) Creatinine 0.50 mg/dL (0.550-1.02) Glomerular Filtration Rate Calc 113 mL/min (>90) BUN/Creatinine Ratio 34.0 (10.0-20.0) Serum Glucose 116 mg/dL (74-106) Calcium Level 9.8 mg/dL (8.7-10.4) Total Bilirubin 0.5 mg/dL (0.2-1.0) Aspartate Amino Transferase (AST) 62 U/L (<34) Alanine Aminotransferase (ALT) 103 U/L (7-40) Alkaline Phosphatase 438 U/L (46-116) Total Protein 6.9 g/dL (5.7-8.2) Albumin 4.2 g/dL (3.2-4.8) Urine Color Yellow (Yellow) Urine Clarity Clear (Clear) Urine pH 5.5 (5.0-9.0) Urine Specific [place] 1.031 (1.001-1.035) Urine Protein Negative (Negative) Urine Ketones Negative (Negative) Urine Blood Negative /uL (Negative) Urine Nitrite Negative (Negative) Urine Bilirubin Negative (Negative) Urine Urobilinogen Normal mg/dL (Negative) Urine Leukocyte Esterase Negative /uL (Negative) Urine RBC <1 /hpf (0 - 4) Urine Microscopic WBC < 1 /HPF (0-5) Urine Squamous Epithelial Cells Few /hpf (<5) Urine Bacteria Few /hpf (None Seen) Urine Mucus Few (None Seen) Urine Yeast (Budding) Occasional /hpf (None Urine Creatinine 94.67 mg/dL (30.0-125.0) Urine Protein/Creatinine Ratio 0.18 Urine Glucose 4+ mg/dL (Normal) Urine Total Protein 17.5 mg/dL (1-14) Urine Opiates Screen Neg (NEGATIVE) Urine Fentanyl Screen Neg (NEGATIVE) Urine Barbiturates Screen Neg (NEGATIVE) Urine Phencyclidine Screen Neg (NEGATIVE) Urine Amphetamines Screen Neg (NEGATIVE) Urine Benzodiazepines Screen Neg (NEGATIVE) Urine Cocaine Screen Neg (NEGATIVE) Urine Cannabinoids Screen Neg (NEGATIVE) Influenza Type A Antigen Negative (Negative) Influenza Type B Antigen Negative (Negative) SARS-CoV-2 Antigen (Rapid) Negative (NEGATIVE) Test 12/03/24 04:54 12/02/24 21:59 12/02/24 16:06 12/02/24 12:33 White Blood Count 5.4 10^3/uL (4.4-10.8) Red Blood Count 4.40 10^6/uL (4.0-5.20) Hemoglobin 12.8 g/dL (12.2-16.2) Hematocrit 37.1 % (36.0-46.0) Mean Corpuscular Volume 84.3 fL (80.0-100.0) Mean Corpuscular Hemoglobin 29.2 pg (28.0-32.0) Mean Corpuscular Hemoglobin Concent 34.6 g/dL (32.0-36.0) Red Cell Distribution Width 12.2 % (11.8-14.3) Platelet Count 228 10^3/uL (140-450) Mean Platelet Volume 8.9 fL (6.9-10.8) Neutrophils (%) (Auto) 38.8 % (37.0-80.0) Lymphocytes (%) (Auto) 48.5 % (10.0-50.0) Monocytes (%) (Auto) 9.4 % (0.0-12.0) Eosinophils (%) (Auto) 2.7 % (0.0-7.0) Basophils (%) (Auto) 0.6 % (0.0-2.0) Neutrophils # (Auto) 2.1 10 ^3/uL (1.6-8.6) Lymphocytes # (Auto) 2.6 10 ^3/uL (0.4-5.4) Monocytes # (Auto) 0.5 10 ^3/uL (0-1.3) Eosinophils # (Auto) 0.1 10 ^3/uL (0-0.8) Basophils # (Auto) 0 10 ^3/uL (0-0.2) Nucleated Red Blood Cells 0.0 % Prothrombin Time 10.2 sec (9.3-11.8) Prothrombin Time INR 0.96 (0.9-1.15) Activated Partial Thromboplast Time 26.1 SEC (24.5-34.5) Vitamin B12 Level 560 pg/mL (211-911) Vitamin D 25-Hydroxy 41.0 ng/mL (30.0-100) Total Triiodothyronine (TT3) 2.46 ng/mL (0.60-1.81) Troponin I High Sensitivity 14 ng/L (</=34) Phosphorus Level 5.3 mg/dL (2.4-5.1) Magnesium Level 1.9 mg/dL (1.6-2.6) Beta-Hydroxybutyric Acid 0.940 mmol/L (< 0.4) Free Triiodothyronine (T3) pg/mL 11.41 pg/mL (2.3-4.2) B-Type Natriuretic Peptide 226.89 pg/mL (0-100) Thyroid Stimulating Hormone (TSH) 0.01 uIU/mL (0.55-4.78) Other Laboratory Tests 12/04/24 06:34 12/03/24 04:54 Brief Hx & Hospital Course: This is a 54-year-old female with Graves disease on methimazole and propranolol, diabetes type 1 on Lantus 28 and Humalog sliding scale, hyperlipidemia, depression, paroxysmal atrial fibrillation who presented to the ER with a chief complaint of palpitations, shortness of breaths and chest pain for 1 day. Patient reports waking up on the morning of 12/02 with palpitations, shortness of breaths and her pulse was around 150 beats per minute. She reported midsternal chest pain, squeezing in nature, nonradiating associated with dizziness and shortness of breath on exertion. She reports chronic diarrhea, feeling of warmth, anxiety. Patient follows Dr. Nunez and was recently in his office 2 weeks earlier when her free T4 was around 2.5. On arrival to the ER, EKG showed AFib with RVR, patient was started on diltiazem IV drip following which the patient converted to sinus rhythm. On my examination, telemetry shows NSR, pulse 80s beats per minute. Troponin unremarkable. BNP 2 2 6. Mild transaminitis. During the hospitalization, patient is started on diltiazem drip following which she converted to sinus rhythm. Patient was admitted to telemetry unit. Telemetry showing normal sinus rhythm, pulse consistently in 80s. TSH less than 0.01, free T4 3.77, which increased from 2.3 on 11/08/2024. Snath Handle Assembler was consulted, patient was started on methimazole 10 mg TID, propranolol 10 mg TID, cholestyramine 4 g q.6 hour. Given paroxysmal atrial fibrillation and CHADS- VASc score of 1 (diabetes) patient was started on Eliquis 5 mg p.o. b.i.d.. We continued moderate sliding scale, carbohydrate diet and home medication Lantus 28 units. Liver ultrasound showed echogenic liver consistent with hepatic steatosis. 12/04 patient feels better, no acute distress, hemodynamically stable therefore she has been discharged home with the following discharge plan. -follow up with the shampoo person within 7 days -continue methimazole 10 mg TID -continue propranolol 10 mg TID -continue Eliquis 5 mg b.i.d. -follow up with primary care physician within 7 days Patient agreed to discharge planning. Consults/Reason for consult Snath Handle Assembler consulted for thyrotoxicosis Operations or Procedures ORDERING PHYSICIAN: GUI BRAMBILA RESIDENT PROCEDURE(s): LIVUS - LIVER REASON: Transaminitis ORDER NUMBER(s): [id number], ACCESSION NUMBER(s): [id number] Technique: Real-time ultrasound imaging of the abdomen was performed with grayscale and color Doppler. Indication: Transaminitis Comparison: None Findings: Liver measures 17.6cm. It is increased in echogenicity and echotexture without focal mass. Portal vein is normal in caliber and demonstrates normal hepatopetal flow. Gallbladder demonstrates no evidence for cholelithiasis. There is no pericholecystic fluid. The wall thickness is normal. The common bile duct measures 4 mm. No intrahepatic biliary ductal dilatation. The right kidney measures 9.8 cm. No hydronephrosis or sonographic evidence of nephrolithiasis. The visualized portion of the pancreas is unremarkable. The visualized portion of the IVC is unremarkable. Impression: Echogenic liver which can be seen with hepatic steatosis, cirrhosis. No evidence for cholelithiasis. ATED BY: JENNA MARK MD DICTATED DATE/TIME: 12/03/241728 SIGNED BY: JENNA MARK MD SIGNED DATE/TIME: 12/03/241728 CC: Condition at Discharge: Stable Final Diagnosis/Problems List Acute exacerbation of underlying hypothyroidism of unclear etiology. Likely secondary to dehydration. 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 Graves disease Atrial fibrillation with RVR due to above-now sinus-chads Vasc score 1 Type 1 diabetes mellitus-A1c 9.2 Transaminitis secondary to hepatic steatosis History of depression-no ohs/SI Discharge Disposition: Home Discharge Instruct/Medications Diet: Cardiac 2g Na,low cholest Activity: Light activity Follow Up/Referral: Follow up with Dr Nunez within 7 days Follow up with PCP within 7 days Medications: Eliquis 5mg twice daily Methimazole 10mg three times daily Propranolol 10 mg three times daily Discharge Statement: "Patient was advised to return to the ER or call 911 if any headaches, dizziness, shortness of breath, chest pain, abdominal pain, bleeding, fevers, or worsening of medical condition. Patient was counseled about treatment plan, medications, possible side effects, patientverbalized understanding. All questions were answered to the best of my ability. 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
[2024-12-04 17:00] VITALS: BP 100/55; PULSE 82; RESP 16; TEMP 97.9; O2SAT 98
== END 2024-12-04 17:01 | disposition home or self-care (01) | DRG 645 ==
LOC: ER 12:03 → OVERFLOW 16:00 → TELE-WESTW 12-03 17:49
PROVIDERS: ADMIT Student in an Organized Health Care Education/Training Program; ATTEND Student in an Organized Health Care Education/Training Program
DX: E05.00 Thyrotoxicosis with diffuse goiter without thyrotoxic crisis or storm (principal); I48.0 Paroxysmal atrial fibrillation; E78.5 Hyperlipidemia, unspecified; Z20.822 Contact with and (suspected) exposure to COVID-19; E83.51 Hypocalcemia; F32.A Depression, unspecified; K76.0 Fatty (change of) liver, not elsewhere classified; E86.0 Dehydration; E10.9 Type 1 diabetes mellitus without complications; Z90.710 Acquired absence of both cervix and uterus; Z90.49 Acquired absence of other specified parts of digestive tract; Z88.3 Allergy status to other anti-infective agents; Z87.891 Personal history of nicotine dependence; Z83.3 Family history of diabetes mellitus; Z79.4 Long term (current) use of insulin; Z79.01 Long term (current) use of anticoagulants; Z79.899 Other long term (current) drug therapy
CPT/HCPCS: 36415; 71045; 76705; 80048; 80053; 80307; 81001; 82010; 82306; 82570; 82607; 82962; 83735; 83880; 84100; 84156; 84439; 84443; 84480; 84481; 84484; 85025; 85610; 85730; 87426; 87804; 93005; 96365; 96366; 96375; 99291; G0378; J1815

== ENCOUNTER → 2025-01-04 | Outpatient (CLI) | payer BC ==
[~2025-01-04] MED LIST changes: +ATOR10TA; -CEPH250C PO; -INSU100I55 SC; +INSUINJ37 SC
[2025-01-04 09:25] LABS: Albumin 4.0 g/dL (3.2-4.8); Anion Gap 8 (5-15); BUN/Creatinine Ratio 27.7 (10.0-20.0); Bilirubin, Total 0.5 mg/dL (0.2-1.0); Blood Urea Nitrogen 18 mg/dL (9-23); Calcium 10.3 mg/dL (8.7-10.4); Carbon Dioxide 26 mmol/L (20-31); Chloride 106 mmol/L (98-107); Potassium 3.9 mmol/L (3.5-5.1); Sodium 140 mmol/L (136-145); Total Protein 6.2 g/dL (5.7-8.2)
[2025-01-04 09:26] LABS: Alanine Aminotransferase 87 U/L (7-40); Alkaline Phosphatase 253 U/L (46-116); Glucose 310 mg/dL (74-106)
[2025-01-04 10:38] LABS: Free T3 7.77 pg/mL (2.3-4.2)
[2025-01-04 10:40] LABS: Free T4 (Free Thyroxine) 3.24 ng/dL (0.89-1.76)
== END | disposition home or self-care (01) ==
LOC: LAB 06:14
PROVIDERS: ATTEND Internal Medicine Endocrinology, Diabetes & Metabolism
DX: E10.65 Type 1 diabetes mellitus with hyperglycemia (principal); E05.00 Thyrotoxicosis with diffuse goiter without thyrotoxic crisis or storm
CPT/HCPCS: 36415; 80053; 83036; 84436; 84439; 84443; 84480; 84481

== ENCOUNTER 2025-01-06 09:00 | Inpatient (IN) | payer BC ==
[~2025-01-06] VITALS: Ht 149.9 cm; Wt 74.0 kg
[2025-01-06 09:20] VITALS: PULSE 135; RESP 21; O2SAT 100
[2025-01-06] MEDS: AMIODARONE 360mg/200mL PREMIX 200 ML IV ONE (09:33)
[2025-01-06] MEDS: AMIODARONE BOLUS KIT 100 ML IV ONE (09:35)
[2025-01-06] MEDS: SODIUM CHLORIDE 0.9% 1,000 ML IV ONE (09:36)
--- NOTE | 2025-01-06 09:43 | ED.PDOC ---
HPI Comments 54 year old female presents to the ED with a chief complaint of palpitations onset today (01/06/25). Patient states she woke up this morning experiencing palpitation with shortness of breath. Prior to ED arrival, she took Propranolol 20 mg. Patient was seen in this ED about 3 weeks ago, with similar symptoms. PMHx a-fib, depression, HLD, DM insulin dependent, thyroid disease. Denies chest pain, dizziness, nausea, vomiting, diarrhea, abdominal pain, headache, blurry vision. No other symptoms or modifying factors present at this time. Chief Complaint: Palpitations Time Seen by MD: 09:25 Primary Care Provider: TIA Reviewed Notes: Medications, Allergies Allergies: Coded Allergies: Naproxen (Verified Allergy, Severe, 07/30/23) Swollen throat Metronidazole (Verified Allergy, Unknown, 07/28/23) Home Meds Active Scripts Propranolol HCl (Propranolol Hydrochloride) 20 Mg Tab, 10 MG PO TID for 30 Days, #45 TAB Prov:GUI BRAMBILA 12/04/24 Methimazole (Methimazole) 5 Mg Tab, 10 MG PO TID for 30 Days, #180 TAB Prov:PATTYGUI RESIDENT 12/04/24 Apixaban Base (ELIQUIS) 5 Mg Tab, 5 MG PO BID for 30 Days, #60 TAB Prov:PATTYGUI RESIDENT 12/04/24 Reported Medications Insulin Glargine (Lantus Solostar) 100 Unit/Ml Inj, 20 UNIT SC BID 12/03/24 Atorvastatin Calcium (Lipitor) 10 Mg Tab 12/03/24 Information Source: Patient Mode of Arrival: Ambulatory Severity: Moderate Timing: Hours Duration: Since onset Prehospital treatment: None Quality: Other Onset: While Asleep Cardiac Risk Factors: Smoker, Hyperlipidemia, Diabetes PE Risk Factors: None Associated Signs and Symptoms: Palpitations Past Medical History PAST MEDICAL HISTORY: AFIB, Depression, DM, High Lipids Surgical History: Appendectomy, Hysterectomy, Tubal Ligation KIT PLANNER History: No Pertinent KIT PLANNER History Family History Family History: Family hx of DM, Family hx of Cancer Social History Smoker: Quit Less Than 1 Year Alcohol: Denies ETOH Use Drugs: Denies Drug Use Lives In: Home Constitutional: denies: chills, diaphoresis, fatigue, fever, malaise, sweats, weakness, others EENTM: denies: blurred vision, double vision, ear bleeding, ear discharge, ear drainage, ear pain, ear ringing, eye pain, eye redness, hearing loss, mouth pain, mouth swelling, nasal discharge, nose bleeding, nose congestion, nose pain, photophobia, tearing, throat pain, throat swelling, voice changes, others Respiratory: denies: cough, hemoptysis, orthopnea, SOB at rest, shortness of breath, SOB with excertion, stridor, wheezing, others Cardiovascular: reports: palpitations; denies: chest pain, dizzy spells, diaphoresis, Dyspnea on exertion, edema, irregular heart beat, left arm pain, lightheadedness, PND, syncope, others Gastrointestinal: denies: abdomen distended, abdominal pain, blood streaked bowels, constipated, diarrhea, dysphagia, difficulty swallowing, hematemesis, melena, nausea, poor appetite, poor fluid intake, rectal bleeding, rectal pain, vomiting, others Genitourinary: denies: abnormal vagina bleeding, burning, dyspareunia, dysuria, flank pain, frequency, hematuria, incontinence, pain, , vagina discharge, urgency, others Neurological: denies: dizziness, fainting, headache, left sided numbness, left sided weakness, numbness, paresthesia, pre-existing deficit, right sided numbness, right sided weakness, seizure, speech problems, tingling, tremors, weakness, others Musculoskeletal: denies: back pain, gout, joint pain, joint swelling, muscle p ain, muscle stiffness, neck pain, others Integumetry: denies: bruises, change in color, change in hair/nails, dryness, laceration, lesions, lumps, rash, wounds, others Allergic/Immunocompromised: denies: Difficulty Healing, Frequent Infections, Hives, Itching, others Hematologic/Lymphatic: denies: anemia, blood clots, easy bleeding, easy bruising, swollen glands, others Endocrine: denies: excessive hunger, excessive sweating, excessive thirst, excessive urination, flushing, intolerance to cold, intolerance to heat, unexplained weight gain, unexplained weight loss, others Psychiatric: denies: anxiety, bipolar disorder, depression, hopeless, panic disorder, schizophrenia, sleepless, suicidal, others All Other Systems: Reviewed and Negative Physical Exam General Appearance: Moderate Distress HEENT: Normal ENT Inspection, Pharynx Normal, TMs Normal Neck: Full Range of Motion, Non-Tender, Normal, Normal Inspection Respiratory: Chest Non-Tender, Lungs Clear, No Accessory Muscle Use, No Respiratory Distress, Normal Breath Sounds Cardiovascular: Irregular, No Edema, No JVD, No Murmur, No Gallop, Normal Peripheral Pulses Breast Exam: Deferred Gastrointestinal: No Organomegaly, Non Tender, No Pulsatile Mass, Normal Bowel Sounds, Soft Genitalia: Deferred Pelvic: Deferred Rectal: Deferred Extremities: No calf tenderness, Normal capillary refill, Normal inspection, Normal range of motion, Non-tender, No pedal edema Musculoskeletal : Apperance: Normal Neurologic: Alert, general counselor II-XII nml as Tested, No Motor Deficits, Normal Affect, Normal Mood, No Sensory Deficits Cerebellar Function: NOT DONE Reflexes: NOT DONE Skin: Dry, Normal Color, Warm Peripheral Pulses: 3+ Radial (R), 3+ Radial (L) Lymphatic: No Adenopathy EKG EKG : Pulse Rate (adult): 147 Cardiac Rhythm: Afib Was a procedure done? Was a procedure done?: No CP Differential Dx Differential Diagnosis: A-fib, A-Flutter, Angina, Anxiety / Panic Attack, Atrial Dysrhythmia, Electrolyte Disorder X-Ray, Labs, Meds, VS Vital Signs Date Time Temp Pulse Resp B/P (MAP) Pulse Ox O2 Delivery O2 Flow Rate FiO2 01/06/25 12:08 110 18 130/56 (80) 98 01/06/25 11:42 120 01/06/25 10:42 167 20 122/87 (99) 97 01/06/25 10:15 97.7 84 21 88/61 (70) 99 97.7 01/06/25 10:14 117 01/06/25 09:55 130 21 104/74 (84) 98 01/06/25 09:51 147 01/06/25 09:30 154 18 112/73 (86) 99 01/06/25 09:21 147 01/06/25 09:20 98.0 145 24 112/73 (86) 97 98.0 01/06/25 09:20 135 21 100 Nasal Cannula* 2 28 01/06/25 09:19 131 01/06/25 09:15 98.3 128 22 126/93 (104) 94 98.3 01/06/25 09:00 98.3 128 22 126/93 (104) 94 98.3 Lab Test 01/06/25 10:10 01/06/25 09:27 01/06/25 09:18 Range/Units Troponin I High Sensitivity 10 10 </=34 ng/L White Blood Count 13.4 H 4.4-10.8 10^3/uL Red Blood Count 5.16 4.0-5.20 10^6/uL Hemoglobin 14.9 12.2-16.2 g/dL Hematocrit 43.0 36.0-46.0 % Mean Corpuscular Volume 83.2 80.0-100.0 fL Mean Corpuscular Hemoglobin 28.8 28.0-32.0 pg Mean Corpuscular Hemoglobin Concent 34.6 32.0-36.0 g/dL Red Cell Distribution Width 12.5 11.8-14.3 % Platelet Count 392 140-450 10^3/uL Mean Platelet Volume 8.7 6.9-10.8 fL Neutrophils (%) (Auto) 51.1 37.0-80.0 % Lymphocytes (%) (Auto) 38.0 10.0-50.0 % Monocytes (%) (Auto) 8.4 0.0-12.0 % Eosinophils (%) (Auto) 1.2 0.0-7.0 % Basophils (%) (Auto) 1.3 0.0-2.0 % Neutrophils # (Auto) 6.9 1.6-8.6 10 ^3/uL Lymphocytes # (Auto) 5.1 0.4-5.4 10 ^3/uL Monocytes # (Auto) 1.1 0-1.3 10 ^3/uL Eosinophils # (Auto) 0.2 0-0.8 10 ^3/uL Basophils # (Auto) 0.2 0-0.2 10 ^3/uL Nucleated Red Blood Cells 0.1 % Urine Color Yellow Yellow Urine Clarity Clear Clear Urine pH 7.0 5.0-9.0 Urine Specific [place] 1.033 1.001-1.035 Urine Protein Trace H Negative Urine Ketones Trace Negative Urine Blood Negative Negative /uL Urine Nitrite Negative Negative Urine Bilirubin Negative Negative Urine Urobilinogen Normal Negative mg/dL Urine Leukocyte Esterase Negative Negative /uL Urine RBC 2 0 - 4 /hpf Urine Microscopic WBC 1 0-5 /HPF Urine Squamous Epithelial Cells Few <5 /hpf Urine Bacteria None seen None Seen /hpf Urine Mucus Few None Seen Urine Glucose 4+ H Normal mg/dL Sodium Level 143 136-145 mmol/L Potassium Level 3.6 3.5-5.1 mmol/L Chloride Level 107 98-107 mmol/L Carbon Dioxide Level 21 20-31 mmol/L Anion Gap 15 5-15 Blood Urea Nitrogen 22 9-23 mg/dL Creatinine 0.73 0.550-1.02 mg/dL Glomerular Filtration Rate Calc 99 >90 mL/min BUN/Creatinine Ratio 30.1 H 10.0-20.0 Serum Glucose 180 H 74-106 mg/dL Calcium Level 11.0 H 8.7-10.4 mg/dL Total Bilirubin 0.5 0.2-1.0 mg/dL Aspartate Amino Transferase (AST) 25 13-40 U/L Alanine Aminotransferase (ALT) 67 H 7-40 U/L Alkaline Phosphatase 292 H 46-116 U/L Total Protein 6.8 5.7-8.2 g/dL Albumin 4.4 3.2-4.8 g/dL Current Medications Medications (Trade) Dose Ordered Sig/Isaak Route Start Time Stop Time Status Last Admin Amiodarone HCl 100 ml @ 600 mls/hr ONCE ONCE IV 01/06/25 09:30 01/06/25 09:39 DC 01/06/25 09:35 Sodium Chloride 1,000 ml @ 150 mls/hr Q6H40M ONCE IV 01/06/25 09:30 01/06/25 16:09 01/06/25 09:36 Sodium Chloride 500 ml @ 500 mls/hr Q1H ONCE IV 01/06/25 10:30 01/06/25 11:29 DC 01/06/25 10:31 Patient alert. Complaining of palpitations. EKG shows atrial fibrillation. Blood sugar elevated. Started amiodarone. WBC slightly elevated. Hemoglobin within normal limits. Alkaline phosphatase elevated. Liver enzyme elevated. Ketones in urine. Establish intravenous access. Was given fluids. Was given Rocephin. Was given Flagyl. Explained to the patient. Continue monitoring. Time of 1ST Reevaluation: 09:55 Reevaluation 1ST: Unchanged Patient Education/Counseling: Diagnosis, Treatment, Prognosis Family Education/Counseling: No Family Present SEPSIS Sepsis Screen Date sepsis recognized/suspect: Jan 06, 2025 Time Sepsis recognized/suspect: 0900 Recent Procedure: No On Antibiotic Therapy: No Respiratory Rate >20: Yes Heart Rate >90: Yes Temp<36 C (96.8 F) or >38.3 C: No SBP <90 or MAP <65 mmHG: No New Acute Mental Status Change: No Is the patient on CPAP, BIPAP,: No Physician Orders Electrocardigram (01/06/25 12:08) Amiodarone 360mg/200ml Premix (Nexterone (01/06/25 09:45) Amiodarone 360mg/200ml Premix (Nexterone (01/06/25 15:45) Chest Portable (01/06/25 09:27) Sodium Chloride 0.9% (01/06/25 09:30) Vital Signs Date Time Temp Pulse Resp B/P (MAP) Pulse Ox O2 Delivery O2 Flow Rate FiO2 01/06/25 12:08 110 18 130/56 (80) 98 01/06/25 11:42 120 01/06/25 10:42 167 20 122/87 (99) 97 01/06/25 10:15 97.7 84 21 88/61 (70) 99 97.7 01/06/25 10:14 117 01/06/25 09:55 130 21 104/74 (84) 98 01/06/25 09:51 147 01/06/25 09:30 154 18 112/73 (86) 99 01/06/25 09:21 147 01/06/25 09:20 98.0 145 24 112/73 (86) 97 98.0 01/06/25 09:20 135 21 100 Nasal Cannula* 2 28 01/06/25 09:19 131 01/06/25 09:15 98.3 128 22 126/93 (104) 94 98.3 01/06/25 09:00 98.3 128 22 126/93 (104) 94 98.3 Laboratory Tests Test 01/06/25 09:27 White Blood Count 13.4 10^3/uL (4.4-10.8) H Medications Medications Dose Ordered Sig/Isaak Route Start Time Stop Time Status Last Admin Dose Admin Amiodarone HCl 100 ml @ 600 mls/hr ONCE ONCE IV 01/06/25 09:30 01/06/25 09:39 DC 01/06/25 09:35 Sodium Chloride 500 ml @ 500 mls/hr Q1H ONCE IV 01/06/25 10:30 01/06/25 11:29 DC 01/06/25 10:31 Sodium Chloride 1,000 ml @ 150 mls/hr Q6H40M ONCE IV 01/06/25 09:30 01/06/25 16:09 01/06/25 09:36 Departure 1 Departure Time of Disposition: 13:16 Impression: Primary Impression: Atrial fibrillation with rapid ventricular response Disposition: ADMITTED INPATIENT Admit to: Med Surg Condition: Guarded Critical Care Note Critical Care Time?: Yes (90 min-critical care time only) Critical care comment: Atrial fibrillation Stability Stability form required: No Heart Score Heart Score: Heart Score Response (Comments) Value History Slightly Suspicious 0 EKG Normal 0 Age 45-64 1 Risk Factors >3 or Hx ASHD 2 Troponin Normal limit 0 Total 3 I personally scribed for JOSEFINA GAYLE MD ([email or web address]) on 01/06/25 at 09:43. Electronically submitted by Analisa Damon ([email or web address]). I personally scribed for JOSEFINA GAYLE MD ([email or web address]) on 01/06/25 at 09:51. Electronically submitted by Analisa Damon ([email or web address]). JOSEFINA GAYLE MD Jan 06, 2025 09:43
[2025-01-06 09:50] LABS: Hematocrit 43.0 % (36.0-46.0); Hemoglobin 14.9 g/dL (12.2-16.2); Mean Corpuscular Hemoglobin 28.8 pg (28.0-32.0); Mean Corpuscular Volume 83.2 fL (80.0-100.0); Nucleated Red Blood Cells % 0.1 %
[2025-01-06 10:00] LABS: Anion Gap 15 (5-15); BUN/Creatinine Ratio 30.1 (10.0-20.0); Blood Urea Nitrogen 22 mg/dL (9-23); Carbon Dioxide 21 mmol/L (20-31); Potassium 3.6 mmol/L (3.5-5.1); Sodium 143 mmol/L (136-145); Total Protein 6.8 g/dL (5.7-8.2)
[2025-01-06 10:01] LABS: Albumin 4.4 g/dL (3.2-4.8); Bilirubin, Total 0.5 mg/dL (0.2-1.0); Chloride 107 mmol/L (98-107)
[2025-01-06 10:02] LABS: Alanine Aminotransferase 67 U/L (7-40); Alkaline Phosphatase 292 U/L (46-116); Calcium 11.0 mg/dL (8.7-10.4); Glucose 180 mg/dL (74-106)
--- NOTE | 2025-01-06 10:17 | ECG ---
[facility] Test Date: 2025-01-06 Test Time: 10:14:45 Pat Name: IDALIA NOEL Department: ED Room: 0286T Gender: F Speech Therapy Teacher: CASSANDRA : 1970 Requested By: JOSEFINA GAYLE Order Number: [id number] Reading MD: Zeke Hebert Measurements Intervals [place] Rate: 117 P: 0 MO: 0 QRS: -23 QRSD: 81 T: 93 QT: 346 QTc: 483 Interpretive Statements Atrial fibrillation Borderline left axis deviation Anteroseptal infarct, old Nonspecific T abnormalities, lateral leads Electronically Signed On 01-09-2025 15:53:16 PDT by Zeke Hebert Please click the below link to view image of tracing.
[2025-01-06] MEDS: SODIUM CHLORIDE 0.9% 500 ML IV ONE (10:31)
--- NOTE | 2025-01-06 10:48 | DVH ---
CHEST RADIOGRAPH Indication: sob Technique: Single frontal view of the chest was obtained COMPARISON: XY CHEST PORTABLE on DOS: 12/02/24, XY CHEST PORTABLE on DOS: 09/16/24 FINDINGS: Lines and Tubes: None Lungs: Clear Pleura: No effusion. No pneumothorax. Cardiomediastinal contours: Unremarkable Bones: Unremarkable IMPRESSION: No acute disease.
[2025-01-06 11:32] LABS: Urine Protein, UAD TRACE (Negative)
--- NOTE | 2025-01-06 12:05 | ECG ---
[facility] Test Date: 2025-01-06 Test Time: 12:04:09 Pat Name: IDALIA NOEL Department: ED Room: 0286T Gender: F Play Leader: CASSANDRA : 1970 Requested By: JOSEFINA GAYLE Order Number: [id number] Reading MD: Zeke Hebert Measurements Intervals [place] Rate: 123 P: 0 [place]: 0 QRS: -51 QRSD: 82 T: 101 QT: 341 QTc: 488 Interpretive Statements Atrial fibrillation Left anterior fascicular block Probable LVH with secondary repol abnrm Anterior Q waves, possibly due to LVH Prolonged QT interval Electronically Signed On 01-09-2025 15:53:28 PDT by Zeke Hebert Please click the below link to view image of tracing.
[2025-01-06] MEDS: LORazepam 2MG/ML-1ML VIAL IM ONE (13:31)
[2025-01-06] MEDS: InsuLIN REG 1unit/0.01ml Soln (100units/ml) IV ONE (13:52)
[2025-01-06] MEDS ORDERED: DEXTROSE (50%) 50ML SYRG IV PRN (14:00)
[2025-01-06] MEDS ORDERED: HYDROcodone-ACET 5/325MG TAB PO PRN (14:00)
[2025-01-06] MEDS ORDERED: MORPHINE SULFATE INJ 2 MG/ml SYRG IV PRN (14:00)
--- NOTE | 2025-01-06 14:05 | DVHHP2 ---
History of Present Illness Reason for Visit: Palpitations History of Present Illness 54-year-old female presents to the emergency department with a chief complaint of palpitations that began earlier today. She reports waking up this morning with a sensation of rapid heartbeat, accompanied by shortness of breath. In response, she took her propranolol 20 mg at home prior to arrival. The patient mentions similar episode approximately three weeks ago, for which she was evaluated in the ED and found to be in atrial fibrillation with rapid ventricular response. That time she was started on amiodarone drip and successfully converted to sinus rhythm. In the current ED visit, she was again noted to be in atrial fibrillation with RVR, with a ventricular rate in 120s. She was started on amiodarone drip and subsequently converted to sinus rhythm, now in 80s. She reports that she is not currently on any chronic antiarrhythmic or rate control medications for atrial fibrillation. Additionally, she has not been taking her prescribed Eliquis due to significant dizziness, which she attributes to the medication. She has a Cardiology appointment in this facility scheduled in the next couple of months. Significant past medical history of paroxysmal AFib, anxiety/depression, hyperlipidemia, type 1 diabetes, Graves disease/hyperthyroidism, and former smoker. Past Medical History As stated in HPI Past Surgical History Appendectomy, hysterectomy, tubal ligation Family History Reviewed, non-contributory to the management of this case. Past Social History The patient lives at home, denies smoking, alcohol or illicit drugs abuse. Review of Systems Constitutional: No: Fever, Chills, Sweats, Weakness, Malaise, Other Eyes: No: Pain, Vision change, Conjunctivae inflammation, Eyelid inflammation, Other, Redness ENT: No: Ear pain, Ear discharge, Nose pain, Nose discharge, Nose congestion, Mouth pain, Mouth swelling, Throat pain, Throat swelling, Other Respiratory: Shortness of breath; No: Cough, Dry, SOB with excertion, Wheezing, Hemoptysis, Pleuritic Pain, Sputum, Wheezing, Other Cardiovascular: Palpitations; No: Chest Pain, Orthopnea, Paroxysmal Noc. Dyspnea, Edema, Lt Headedness, Other Gastrointestinal: No: Nausea, Vomiting, Abdominal Pain, Diarrhea, Constipation, Melena, Hematochezia, Other Genitourinary: No Dysuria, No Frequency, No Incontinence, No Hematuria, No Retention, No Other Skin: No: Rash, Lesions, Jaundice, Bruising, Other Neurological: No: Weakness, Numbness, Incoordination, Change in speech, Confusion, Seizures, Other Allergies: Coded Allergies: Naproxen (Verified Allergy, Severe, 07/30/23) Swollen throat Metronidazole (Verified Allergy, Unknown, 07/28/23) Medications Current Medications Medications Dose Ordered Sig/Isaak Route Start Time Stop Time Status Last Admin Dose Admin Sodium Chloride 1,000 ml @ 100 mls/hr Q10H IV 01/06/25 14:00 UNV Acetaminophen/ Hydrocodone Bitart 1 tab Q4HP PRN PO 01/06/25 14:00 UNV Ondansetron HCl 4 mg Q4HP PRN IV 01/06/25 14:00 UNV Acetaminophen 650 mg Q6HP PRN PO 01/06/25 14:00 UNV Morphine Sulfate 2 mg Q4HPRN PRN IV 01/06/25 14:00 UNV Diagnostic Test (Pha) 1 strip ACHS 01/06/25 17:00 UNV Insulin Human Regular ACHS SC 01/06/25 17:00 UNV Dextrose 50 ml UD PRN IV 01/06/25 14:00 UNV Enoxaparin Sodium 70 mg Q12HR SC 01/06/25 22:00 UNV Exam Vital Signs Vital Signs Date Time Temp Pulse Resp B/P (MAP) Pulse Ox O2 Delivery O2 Flow Rate FiO2 01/06/25 12:08 110 18 130/56 (80) 98 01/06/25 10:15 97.7 97.7 01/06/25 09:20 Nasal Cannula* 2 28 General Appearance: Alert, Oriented X3, Cooperative, No acute distress HEENT: Atraumatic, PERRLA, EOMI Respiratory: Clear to auscultation, Normal air movement Cardiovascular: Other (Irregularly irregular rhythm initially. Now regular rhythm, normal S1/S2. No murmurs) Abdominal: Normal bowel sounds, Soft, No tenderness Extremities: No clubbing, No cyanosis, No edema Skin: No rashes, No breakdown, No significant lesion Neuro: Normal gait, Normal speech, Strength at 5/5 X4 ext, Normal tone Psych/Mental Status: Mental status NL Labs/Xrays Labs Test 01/06/25 13:52 01/06/25 10:10 01/06/25 09:27 Range/Units Troponin I High Sensitivity 10 </=34 ng/L White Blood Count 13.4 H 4.4-10.8 10^3/uL Red Blood Count 5.16 4.0-5.20 10^6/uL Hemoglobin 14.9 12.2-16.2 g/dL Hematocrit 43.0 36.0-46.0 % Mean Corpuscular Volume 83.2 80.0-100.0 fL Mean Corpuscular Hemoglobin 28.8 28.0-32.0 pg Mean Corpuscular Hemoglobin Concent 34.6 32.0-36.0 g/dL Red Cell Distribution Width 12.5 11.8-14.3 % Platelet Count 392 140-450 10^3/uL Mean Platelet Volume 8.7 6.9-10.8 fL Neutrophils (%) (Auto) 51.1 37.0-80.0 % Lymphocytes (%) (Auto) 38.0 10.0-50.0 % Monocytes (%) (Auto) 8.4 0.0-12.0 % Eosinophils (%) (Auto) 1.2 0.0-7.0 % Basophils (%) (Auto) 1.3 0.0-2.0 % Neutrophils # (Auto) 6.9 1.6-8.6 10 ^3/uL Lymphocytes # (Auto) 5.1 0.4-5.4 10 ^3/uL Monocytes # (Auto) 1.1 0-1.3 10 ^3/uL Eosinophils # (Auto) 0.2 0-0.8 10 ^3/uL Basophils # (Auto) 0.2 0-0.2 10 ^3/uL Nucleated Red Blood Cells 0.1 % Urine Color Yellow Yellow Urine Clarity Clear Clear Urine pH 7.0 5.0-9.0 Urine Specific [place] 1.033 1.001-1.035 Urine Protein Trace H Negative Urine Ketones Trace Negative Urine Blood Negative Negative /uL Urine Nitrite Negative Negative Urine Bilirubin Negative Negative Urine Urobilinogen Normal Negative mg/dL Urine Leukocyte Esterase Negative Negative /uL Urine RBC 2 0 - 4 /hpf Urine Microscopic WBC 1 0-5 /HPF Urine Squamous Epithelial Cells Few <5 /hpf Urine Bacteria None seen None Seen /hpf Urine Mucus Few None Seen Urine Glucose 4+ H Normal mg/dL Sodium Level 143 136-145 mmol/L Potassium Level 3.6 3.5-5.1 mmol/L Chloride Level 107 98-107 mmol/L Carbon Dioxide Level 21 20-31 mmol/L Anion Gap 15 5-15 Blood Urea Nitrogen 22 9-23 mg/dL Creatinine 0.73 0.550-1.02 mg/dL Glomerular Filtration Rate Calc 99 >90 mL/min BUN/Creatinine Ratio 30.1 H 10.0-20.0 Serum Glucose 180 H 74-106 mg/dL Calcium Level 11.0 H 8.7-10.4 mg/dL Total Bilirubin 0.5 0.2-1.0 mg/dL Aspartate Amino Transferase (AST) 25 13-40 U/L Alanine Aminotransferase (ALT) 67 H 7-40 U/L Alkaline Phosphatase 292 H 46-116 U/L Total Protein 6.8 5.7-8.2 g/dL Albumin 4.4 3.2-4.8 g/dL PROCEDURE(s): CXRP - CHEST PORTABLE REASON: sob ORDER NUMBER(s): [id number], ACCESSION NUMBER(s): [id number] CHEST RADIOGRAPH Indication: sob Technique: Single frontal view of the chest was obtained COMPARISON: XY CHEST PORTABLE on DOS: 12/02/24, XY CHEST PORTABLE on DOS: 09/16/24 FINDINGS: Lines and Tubes: None Lungs: Clear Pleura: No effusion. No pneumothorax. Cardiomediastinal contours: Unremarkable Bones: Unremarkable IMPRESSION: No acute disease. SEPSIS Sepsis Screen Date sepsis recognized/suspect: Jan 06, 2025 Time Sepsis recognized/suspect: 899 Recent Procedure: No On Antibiotic Therapy: No Respiratory Rate >20: Yes Heart Rate >90: Yes Temp<36 C (96.8 F) or >38.3 C: No SBP <90 or MAP <65 mmHG: No New Acute Mental Status Change: No Is the patient on CPAP, BIPAP,: No Physician Orders Electrocardigram (01/06/25 12:08) Amiodarone 360mg/200ml Premix (Nexterone (01/06/25 09:45) Amiodarone 360mg/200ml Premix (Nexterone (01/06/25 15:45) Chest Portable (01/06/25 09:27) Sodium Chloride 0.9% (01/06/25 09:30) Blood Culture (01/06/25 13:16) Lactic Acid W/ Reflex Order (01/06/25 13:16) Piperacillin-Tazob 3.375gm (Zosyn 3.375g (01/06/25 13:30) Metronidazole 500mg/100ml (Flagyl 500mg/ (01/06/25 13:30) Magnesium Sulfate (01/06/25 13:55) * Cardiology Consult (01/06/25 13:55) Admit (01/06/25 13:55) Code Status (01/06/25 13:55) Sodium Chloride 0.9% (01/06/25 14:00) Hydrocodone-Acet 5/325mg Tab (Bernice 5/32 (01/06/25 14:00) Ondansetron Hcl (Zofran) (01/06/25 14:00) Complete Blood Count (01/07/25 04:00) Comprehensive Metabolic Panel (01/07/25 04:00) Cardiac Diet-2gna,Lofat,Lochol (01/06/25 Dinner) Condition: Fair (01/06/25 13:55) Acetaminophen Tablet (Tylenol Tablet) (01/06/25 14:00) Morphine Sulfate Injection (01/06/25 14:00) Electrocardigram (01/06/25 13:55) Communication Order (01/06/25 13:55) Thyroid Stimulating Hormone (01/06/25 13:55) Glucose Blood (Accu-Chek Comfort Curve T (01/06/25 17:00) Insulin R (Human) (Insulin R) (01/06/25 17:00) Dextrose 50% Syringe (01/06/25 14:00) T3 Total (01/06/25 13:55) Free T3 (01/06/25 13:55) Free T4 (Free Thyroxine) (01/06/25 13:55) Thyroxine (T4) (01/06/25 13:55) Enoxaparin Sodium (Lovenox) (01/06/25 22:00) Enoxaparin Sodium (Lovenox) (01/06/25 14:00) Vital Signs Date Time Temp Pulse Resp B/P (MAP) Pulse Ox O2 Delivery O2 Flow Rate FiO2 01/06/25 12:08 110 18 130/56 (80) 98 01/06/25 12:04 123 01/06/25 11:42 120 01/06/25 10:42 167 20 122/87 (99) 97 01/06/25 10:15 97.7 84 21 88/61 (70) 99 97.7 01/06/25 10:14 117 01/06/25 09:55 130 21 104/74 (84) 98 01/06/25 09:51 147 01/06/25 09:30 154 18 112/73 (86) 99 01/06/25 09:21 147 01/06/25 09:20 98.0 145 24 112/73 (86) 97 98.0 01/06/25 09:20 135 21 100 Nasal Cannula* 2 28 01/06/25 09:19 131 01/06/25 09:15 98.3 128 22 126/93 (104) 94 98.3 01/06/25 09:00 98.3 128 22 126/93 (104) 94 98.3 Laboratory Tests Test 01/06/25 09:27 01/06/25 13:52 White Blood Count 13.4 10^3/uL (4.4-10.8) H Lactic Acid Level Pending Medications Medications Dose Ordered Sig/Isaak Route Start Time Stop Time Status Last Admin Dose Admin Amiodarone HCl 100 ml @ 600 mls/hr ONCE ONCE IV 01/06/25 09:30 01/06/25 09:39 DC 01/06/25 09:35 600 MLS/HR Insulin Human Regular 6 units ONCE ONCE IV 01/06/25 13:45 01/06/25 13:46 DC 01/06/25 13:52 6 UNITS Lorazepam 1 mg ONCE ONCE IM 01/06/25 13:15 01/06/25 13:16 DC 01/06/25 13:31 1 MG Sodium Chloride 500 ml @ 500 mls/hr Q1H ONCE IV 01/06/25 10:30 01/06/25 11:29 DC 01/06/25 10:31 500 MLS/HR Sodium Chloride 1,000 ml @ 150 mls/hr Q6H40M ONCE IV 01/06/25 09:30 01/06/25 16:09 01/06/25 09:36 150 MLS/HR Assessment/Plan Assessment/Plan #AFib with RVR, now in sinus rhythm # paroxysmal AFib, CHADS-VASc score 2, (not on anticoagulants) * Admit to telemetry unit * Transition amiodarone drip to PO or per inspector ball points's recommendation * Repeat 12 lead ECG * Cardiology consult * Therapeutic Lovenox--consider alternative anticoagulation options prior to discharge * Monitor electrolytes and replete as needed # hyperthyroidism/Graves disease * Check thyroid function * Continue with home medications * Monitor # diabetes type 1 * Insulin sliding scale * Continue lantus 20 units BID # hyperlipidemia # Obesity * Continue with statins * Check lipid panel * Lifestyle modification counseled DVT prophylaxis Medical plan discussed with patient and RN Plan discussed with: Patient My Orders Orders - [facility] Procedure Category Date Status Time Magnesium Sulfate ORDERS 01/06/25 Transmitted 13:55 * Cardiology Consult CONS 01/06/25 Transmitted 13:55 Admit ADMIT 01/06/25 Transmitted 13:55 Code Status CODE 01/06/25 Transmitted 13:55 Sodium Chloride 0.9% PHA 01/06/25 Logged 14:00 Hydrocodone-Acet PHA 01/06/25 Logged 5/325mg Tab (Bernice 14:00 Ondansetron Hcl PHA 01/06/25 Logged (Zofran) 14:00 Complete Blood Count LAB 01/07/25 Verified 04:00 Comprehensive LAB 01/07/25 Verified Metabolic Panel 04:00 Cardiac DIET 01/06/25 Transmitted Diet-2gna,Lofat,Lochol Dinner Condition: Fair YOLANDA 01/06/25 In Process 13:55 Acetaminophen Tablet PHA 01/06/25 Logged (Tylenol Tablet) 14:00 Morphine Sulfate PHA 01/06/25 Logged Injection 14:00 Electrocardigram EKG 01/06/25 Logged 13:55 Communication Order ORDERS 01/06/25 Transmitted 13:55 Thyroid Stimulating LAB 01/06/25 Logged Hormone 13:55 Glucose Blood PHA 01/06/25 Logged (Accu-Chek Comfort 17:00 Insulin R (Human) PHA 01/06/25 Logged (Insulin R) 17:00 Dextrose 50% Syringe PHA 01/06/25 Logged 14:00 T3 Total LAB 01/06/25 Logged 13:55 Free T3 LAB 01/06/25 Logged 13:55 Free T4 (Free LAB 01/06/25 Logged Thyroxine) 13:55 Thyroxine (T4) LAB 01/06/25 Logged 13:55 Enoxaparin Sodium PHA 01/06/25 Logged (Lovenox) 22:00 Enoxaparin Sodium PHA 01/06/25 Logged (Lovenox) 14:00 Date of Service: Jan 06, 2025 Billing Provider: MISSY HUTCHISON Common Visit Codes: [id number] INP/OBS CARE (HIGH) Consultation Codes: [id number] CONSULT <45MIN MISSY HUTCHISON Jan 06, 2025 14:05
[2025-01-06] MEDS: PIPERACILLIN-TAZOB 3.375GM 100 ML IV ONE (14:08)
--- NOTE | 2025-01-06 14:33 | DVHINCON2 ---
Date Seen: Jan 06, 2025 Referring Physician ALEX Dunaway Reason for Consultation A-fib with RVR History of Present Illness This is a 54-year-old female who presented to the emergency room with a chief complaint of palpitations. The patient complains of palpitations upon waking up and persistent throughout the day which prompted her to seek further medical attention. Upon arrival to the emergency room she underwent multiple 12 lead electrocardiograms x3 revealing an atrial fibrillation rhythm with rapid ventricular rate up to 147 bpm. At time of assessment she was found on an amiodarone drip and successfully transitioned into a normal sinus rhythm. She denies any further symptoms. States she has a history of atrial fibrillation secondary to Graves disease. She follows up with primary program development manager, Dr. Nunze, whom recently transitioned her from Eliquis therapy to Xarelto secondary to adverse effects. He has an upcoming appointment this coming . Denies seeing a primary feeder catcher in the outpatient setting. Significant medical history includes paroxysmal atrial fibrillation on propranolol and Xarelto, Graves disease, insulin-dependent diabetes mellitus, dyslipidemia, and obesity. Past Medical History Past medical history reviewed. No other significant than mentioned above. Past Surgical History Appendectomy Hysterectomy Family History: Diabetes mellitus G8 FATHER FH: cancer G8 MOTHER G8 FATHER Family History Family history reviewed. Social History Denies the use of illicit drugs, alcohol, or tobacco use. Allergies: Coded Allergies: Naproxen (Verified Allergy, Severe, 07/30/23) Swollen throat Metronidazole (Verified Allergy, Unknown, 07/28/23) Home Meds Active Scripts Propranolol HCl (Propranolol Hydrochloride) 20 Mg Tab, 10 MG PO TID for 30 Days, #45 TAB Prov:GUI BRAMBILA RESIDENT 12/04/24 Methimazole (Methimazole) 5 Mg Tab, 10 MG PO TID for 30 Days, #180 TAB Prov:GUI BRAMBILA RESIDENT 12/04/24 Apixaban Base (ELIQUIS) 5 Mg Tab, 5 MG PO BID for 30 Days, #60 TAB Prov:GUI BRAMBILA RESIDENT 12/04/24 Reported Medications Insulin Glargine (Lantus Solostar) 100 Unit/Ml Inj, 20 UNIT SC BID 12/03/24 Atorvastatin Calcium (Lipitor) 10 Mg Tab 12/03/24 Home Meds Home medications reviewed. Current Medications Current Medications Medications (Trade) Dose Ordered Sig/Isaak Route PRN Reason Start Time Stop Time Status Last Admin Sodium Chloride 1,000 ml @ 100 mls/hr Q10H IV 01/06/25 16:09 Acetaminophen/ Hydrocodone Bitart ([place] 5/325MG Tab) 1 tab Q4HP PRN PO MODERATE PAIN (4-6 PAIN SCALE) 01/06/25 14:00 Ondansetron HCl (Zofran) 4 mg Q4HP PRN IV NAUSEA / VOMITING 01/06/25 14:00 Acetaminophen (Tylenol Tablet) 650 mg Q6HP PRN PO PAIN SCALE 1-3 OR TEMP>100.4 01/06/25 14:00 Morphine Sulfate 2 mg Q4HPRN PRN IV SEVERE PAIN (7-10 PAIN SCALE) 01/06/25 14:00 Diagnostic Test (Pha) (Accu-Chek Comfort Curve T) 1 strip ACHS 01/06/25 17:00 Insulin Human Regular (InsuLIN R) ACHS SC 01/06/25 17:00 Dextrose 50 ml UD PRN IV Blood Sugar LESS THAN 60 01/06/25 14:00 Enoxaparin Sodium (Lovenox) 70 mg Q12HR SC 01/06/25 22:00 Methimazole (Tapazole) 10 mg TID PO 01/06/25 22:00 UNV Propranolol HCl (Inderal Tablet) 10 mg TID PO 01/06/25 22:00 UNV Patient Own Medication 20 unit BID SC 01/06/25 22:00 UNV Review of Systems Constitutional: No symptom reported Ears, Nose, & Throat: No symptom reported Eyes: No symptom reported Neurological: No symptoms reported Pulmonary/Respiratory: No symptom reported Cardiovascular: Palpitations Gastrointestinal: No symptom reported Genitourinary: No symptom reported Musculoskeletal: No symptom reported Skin: No symptom reported Psychiatric: No symptom reported Endocrine: No symptom reported Hemotologic/Lymphatic: No symptom reported Vital Signs Vital Signs Date Time Temp Pulse Resp B/P (MAP) Pulse Ox O2 Delivery O2 Flow Rate FiO2 01/06/25 12:08 110 18 130/56 (80) 98 01/06/25 10:15 97.7 97.7 01/06/25 09:20 Nasal Cannula* 2 28 Physical Exam General Appearance: Cooperative. Well developed. Well nourished. In no acute distress Head Exam: Normal inspection Neck Exam: Normal inspection. Non-tender. Normal alignment Pulmonary/Respiratory: Chest non-tender. Clear bilateral breath sounds Cardiovascular/Chest: Regular rate and rhythm. S1, S2. NSR. No murmurs. No JVD. Peripheral Pulses: 2+ Radial (R). 2+ Radial (L). 2+ Pedal (R). 2+ Pedal (L) Abdominal Exam: Normal bowel sounds. Soft. Nontender. No hepatospenomegaly. No masses Ankle Exam: Negative ankle edema Lower extremities: Negative lower extremity edema Neuro/Mental Status: A&O x4. Coherent Thoughts/Psych: Normal thought pattern. Appropriate mood and affect. Good judgement and insight Appearance: In no acute distress Skin Exam: Normal inspection. Normal color. Warm. Dry Labs/Diagnostic Data Labs Test 01/06/25 13:52 01/06/25 10:10 01/06/25 09:27 Range/Units Lactic Acid Level 1.2 0.4-2.0 mmol/L Troponin I High Sensitivity 10 </=34 ng/L White Blood Count 13.4 H 4.4-10.8 10^3/uL Red Blood Count 5.16 4.0-5.20 10^6/uL Hemoglobin 14.9 12.2-16.2 g/dL Hematocrit 43.0 36.0-46.0 % Mean Corpuscular Volume 83.2 80.0-100.0 fL Mean Corpuscular Hemoglobin 28.8 28.0-32.0 pg Mean Corpuscular Hemoglobin Concent 34.6 32.0-36.0 g/dL Red Cell Distribution Width 12.5 11.8-14.3 % Platelet Count 392 140-450 10^3/uL Mean Platelet Volume 8.7 6.9-10.8 fL Neutrophils (%) (Auto) 51.1 37.0-80.0 % Lymphocytes (%) (Auto) 38.0 10.0-50.0 % Monocytes (%) (Auto) 8.4 0.0-12.0 % Eosinophils (%) (Auto) 1.2 0.0-7.0 % Basophils (%) (Auto) 1.3 0.0-2.0 % Neutrophils # (Auto) 6.9 1.6-8.6 10 ^3/uL Lymphocytes # (Auto) 5.1 0.4-5.4 10 ^3/uL Monocytes # (Auto) 1.1 0-1.3 10 ^3/uL Eosinophils # (Auto) 0.2 0-0.8 10 ^3/uL Basophils # (Auto) 0.2 0-0.2 10 ^3/uL Nucleated Red Blood Cells 0.1 % Urine Color Yellow Yellow Urine Clarity Clear Clear Urine pH 7.0 5.0-9.0 Urine Specific [place] 1.033 1.001-1.035 Urine Protein Trace H Negative Urine Ketones Trace Negative Urine Blood Negative Negative /uL Urine Nitrite Negative Negative Urine Bilirubin Negative Negative Urine Urobilinogen Normal Negative mg/dL Urine Leukocyte Esterase Negative Negative /uL Urine RBC 2 0 - 4 /hpf Urine Microscopic WBC 1 0-5 /HPF Urine Squamous Epithelial Cells Few <5 /hpf Urine Bacteria None seen None Seen /hpf Urine Mucus Few None Seen Urine Glucose 4+ H Normal mg/dL Sodium Level 143 136-145 mmol/L Potassium Level 3.6 3.5-5.1 mmol/L Chloride Level 107 98-107 mmol/L Carbon Dioxide Level 21 20-31 mmol/L Anion Gap 15 5-15 Blood Urea Nitrogen 22 9-23 mg/dL Creatinine 0.73 0.550-1.02 mg/dL Glomerular Filtration Rate Calc 99 >90 mL/min BUN/Creatinine Ratio 30.1 H 10.0-20.0 Serum Glucose 180 H 74-106 mg/dL Calcium Level 11.0 H 8.7-10.4 mg/dL Total Bilirubin 0.5 0.2-1.0 mg/dL Aspartate Amino Transferase (AST) 25 13-40 U/L Alanine Aminotransferase (ALT) 67 H 7-40 U/L Alkaline Phosphatase 292 H 46-116 U/L Total Protein 6.8 5.7-8.2 g/dL Albumin 4.4 3.2-4.8 g/dL Assessment Paroxysmal atrial fibrillation, stage III, now NSR Graves disease Dyslipidemia Insulin-dependent diabetes mellitus Obesity Plan/Recommendation (Dr. Miller) Recent transthoracic echocardiogram revealed LVEF 65% with normal RV function. Transition from amiodarone drip to flecainide therapy and initiate Xarelto HS. Continue propranolol and methimazole therapy. Thyroid levels pending at this time, continue treatment per primary care team. Patient to continue following up with Dr. Nunez (program development manager) as outpatient. She was strongly advised to also follow-up with a primary feeder catcher in the outpatient setting. There is no further cardiac workup indicated at this time. Kindly call in the setting of any further tachyarrhythmias. Thank you for allowing us to participate in this patient's care. Please call if you have any questions or concerns. This medical document was created using an electronic medical record system with voice recognition software and computerized dictation system. Although this document has been carefully reviewed, there might still be some phonetic and typographical errors. Occasional wrong-word or ``sound-alike substitutions may have occurred due to the inherent limitations of voice recognition software. These areas are purely typographical due to imperfections of the software programs and do not reflect any compromise in the patient's medical care. Please read the chart carefully and recognize, using context, where these substitutions have occurred. Plan discussed with: Patient, Other NYHA Physical activity limitations: NA Date of Service: Jan 06, 2025 Billing Provider: SARABJIT GRAY Cardiology Common Codes: [id number] INP/OBS CARE (High) SARABJIT GRAY Jan 06, 2025 14:33
[2025-01-06] MEDS: ENOXAPARIN SOD 100 MG/1 ML SYRINGE SC ONE (14:34)
--- NOTE | 2025-01-06 14:38 | ECG ---
[facility] Test Date: 2025-01-06 Test Time: 14:38:03 Pat Name: IDALIA NOEL Department: ED Room: 0286T Gender: F Boiling Off Winder: CASSANDRA : 1970 Requested By: JOSEFINA GAYLE Order Number: [id number] Reading MD: Zeke Hebert Measurements Intervals [place] Rate: 76 P: 47 NM: 161 QRS: -29 QRSD: 83 T: 94 QT: 389 QTc: 438 Interpretive Statements Sinus rhythm Borderline left axis deviation Probable anteroseptal infarct, recent Electronically Signed On 01-09-2025 15:54:00 PDT by Zeke Hebert Please click the below link to view image of tracing.
[2025-01-06 14:43] LABS: Triglycerides 137 mg/dL (< 150)
[2025-01-06 14:45] LABS: Cholesterol 173 mg/dL (< 200)
[2025-01-06 14:48] LABS: HDL Cholesterol 82 mg/dL (40-59)
[2025-01-06] MEDS: FLECAINIDE ACETATE 50 MG TAB PO ONE (15:09)
[2025-01-06] MEDS ORDERED: AMIODARONE 360mg/200mL PREMIX 200 ML IV SCH (15:45)
[2025-01-06] MEDS: ACCU-CHEK COMFORT CURVE STRIP VI SCH (16:59)
[2025-01-06] MEDS: InsuLIN REG 1unit/0.01ml Soln (100units/ml) SC SCH (16:59)
[2025-01-06] MEDS: MAGNESIUM OXIDE 400 MG TAB PO ONE (17:08)
[2025-01-06] MEDS: INSULIN LANTUS (GLARGINE) 1 /0.01ml (100units/ml) SC ONE (17:15)
[2025-01-06] MEDS: SODIUM CHLORIDE 0.9% 1,000 ML IV SCH (17:17)
[2025-01-06 18:22] VITALS: BP 136/49; PULSE 76; RESP 18; TEMP 98.6; O2SAT 97
[2025-01-06] MEDS: RIVAROXABAN 20 MG TAB PO SCH (18:41)
[2025-01-06 20:00] VITALS: PULSE 83
[2025-01-06 21:00] VITALS: BP 141/75; PULSE 73; RESP 18; TEMP 98; O2SAT 94
[2025-01-06] MEDS: INSULIN LANTUS (GLARGINE) 1 /0.01ml (100units/ml) SC SCH (21:57)
[2025-01-06] MEDS: FLECAINIDE ACETATE 50 MG TAB PO SCH (21:59)
[2025-01-06] MEDS ORDERED: ENOXAPARIN SOD 100 MG/1 ML SYRINGE SC SCH (22:00)
[2025-01-06] MEDS: PROPRANOLOL HCL 20 MG TAB PO SCH (22:07)
[2025-01-06] MEDS: methIMAzole 5 MG TAB PO SCH (22:20)
--- NOTE | 2025-01-06 23:20 | DVHINCON2 ---
Date Seen: Jan 06, 2025 Referring Physician ALEX Dunaway Reason for Consultation A-fib with RVR History of Present Illness This is a 54-year-old female with a past medical history of paroxysmal atrial fibrillation on propranolol and Xarelto, Graves disease, insulin-dependent diabetes mellitus, dyslipidemia, and obesity who presented to the ED with complaints of palpitations. Patient complains of palpitations upon waking up and persistent throughout the day which prompted her to seek further medical attention. Upon arrival to the emergency room she underwent multiple 12 lead electrocardiograms x3 revealing an atrial fibrillation rhythm with rapid ventricular rate up to 147 bpm. At time of assessment she was found on an amiodarone drip and successfully transitioned into a normal sinus rhythm. Patient denies any further symptoms. Patient states she has a history of atrial fibrillation secondary to Graves disease. She follows up with primary machine marker, Dr. Nunez, whom recently transitioned her from Eliquis therapy to Xarelto secondary to adverse effects. She has an upcoming appointment this coming . Denies seeing a primary mother's helper in the outpatient setting. Chest x-ray shows NAD. Patient was admitted to the hospital. I am asked to consult on this patient. Past Medical History Past medical history reviewed. No other significant than mentioned above. Past Surgical History Appendectomy Hysterectomy Family History: Diabetes mellitus G8 FATHER FH: cancer G8 MOTHER G8 FATHER Allergies: Coded Allergies: Naproxen (Verified Allergy, Severe, 07/30/23) Swollen throat Metronidazole (Verified Allergy, Unknown, 07/28/23) Home Meds Active Scripts Propranolol HCl (Propranolol Hydrochloride) 20 Mg Tab, 10 MG PO TID for 30 Days, #45 TAB Prov:GUI BRAMBILA RESIDENT 12/04/24 Methimazole (Methimazole) 5 Mg Tab, 10 MG PO TID for 30 Days, #180 TAB Prov:GUI BRAMBILA 12/04/24 Apixaban Base (ELIQUIS) 5 Mg Tab, 5 MG PO BID for 30 Days, #60 TAB Prov:GUI BRAMBILA RESIDENT 12/04/24 Reported Medications Insulin Glargine (Lantus Solostar) 100 Unit/Ml Inj, 20 UNIT SC BID 12/03/24 Atorvastatin Calcium (Lipitor) 10 Mg Tab 12/03/24 Current Medications Current Medications Medications (Trade) Dose Ordered Sig/Isaak Route PRN Reason Start Time Stop Time Status Last Admin Sodium Chloride 1,000 ml @ 100 mls/hr Q10H IV 01/06/25 16:09 Acetaminophen/ Hydrocodone Bitart ([place] 5/325MG Tab) 1 tab Q4HP PRN PO MODERATE PAIN (4-6 PAIN SCALE) 01/06/25 14:00 Ondansetron HCl (Zofran) 4 mg Q4HP PRN IV NAUSEA / VOMITING 01/06/25 14:00 Acetaminophen (Tylenol Tablet) 650 mg Q6HP PRN PO PAIN SCALE 1-3 OR TEMP>100.4 01/06/25 14:00 Morphine Sulfate 2 mg Q4HPRN PRN IV SEVERE PAIN (7-10 PAIN SCALE) 01/06/25 14:00 Diagnostic Test (Pha) (Accu-Chek Comfort Curve T) 1 strip ACHS 01/06/25 17:00 Insulin Human Regular (InsuLIN R) ACHS SC 01/06/25 17:00 Dextrose 50 ml UD PRN IV Blood Sugar LESS THAN 60 01/06/25 14:00 Enoxaparin Sodium (Lovenox) 70 mg Q12HR SC 01/06/25 22:00 01/06/25 14:37 DC Methimazole (Tapazole) 10 mg TID PO 01/06/25 22:00 Propranolol HCl (Inderal Tablet) 10 mg TID PO 01/06/25 22:00 Insulin Glargine (Lantus) 20 units BID SC 01/06/25 22:00 Flecainide Acetate (Tambocor Tablet) 50 mg Q12HR PO 01/06/25 22:00 Rivaroxaban (Xarelto Tablet) 20 mg QPM PO 01/06/25 18:00 Review of Systems Constitutional: No symptom reported Ears, Nose, & Throat: No symptom reported Eyes: No symptom reported Neurological: No symptoms reported Pulmonary/Respiratory: No symptom reported Cardiovascular: Palpitations Gastrointestinal: No symptom reported Genitourinary: No symptom reported Musculoskeletal: No symptom reported Skin: No symptom reported Psychiatric: No symptom reported Endocrine: No symptom reported Hemotologic/Lymphatic: No symptom reported Vital Signs Vital Signs Date Time Temp Pulse Resp B/P (MAP) Pulse Ox O2 Delivery O2 Flow Rate FiO2 01/06/25 15:30 18 109/41 (63) 99 01/06/25 15:00 80 01/06/25 10:15 97.7 97.7 01/06/25 09:20 Nasal Cannula* 2 28 Physical Exam GENERAL: Alert and oriented x 3. No acute distress. EYES: PERRL, EOMI. Anicteric. HENT: Moist mucous membranes. LUNGS: Clear to auscultation bilaterally. CARDIOVASCULAR: Regular rate and rhythm. ABDOMEN: Soft, nontender and nondistended. EXTREMITIES: No edema. NEUROLOGIC: No focal neurological deficits. SKIN: Warm, dry. Labs/Diagnostic Data Labs Test 01/06/25 13:52 01/06/25 10:10 01/06/25 09:27 Range/Units Lactic Acid Level 1.2 0.4-2.0 mmol/L Magnesium Level 1.8 1.6-2.6 mg/dL Triglycerides Level 137 < 150 mg/dL Cholesterol Level 173 < 200 mg/dL LDL Cholesterol 63 < 100 mg/dL HDL Cholesterol 82 H 40-59 mg/dL Thyroid Stimulating Hormone (TSH) 0.02 L 0.55-4.78 uIU/mL Troponin I High Sensitivity 10 </=34 ng/L White Blood Count 13.4 H 4.4-10.8 10^3/uL Red Blood Count 5.16 4.0-5.20 10^6/uL Hemoglobin 14.9 12.2-16.2 g/dL Hematocrit 43.0 36.0-46.0 % Mean Corpuscular Volume 83.2 80.0-100.0 fL Mean Corpuscular Hemoglobin 28.8 28.0-32.0 pg Mean Corpuscular Hemoglobin Concent 34.6 32.0-36.0 g/dL Red Cell Distribution Width 12.5 11.8-14.3 % Platelet Count 392 140-450 10^3/uL Mean Platelet Volume 8.7 6.9-10.8 fL Neutrophils (%) (Auto) 51.1 37.0-80.0 % Lymphocytes (%) (Auto) 38.0 10.0-50.0 % Monocytes (%) (Auto) 8.4 0.0-12.0 % Eosinophils (%) (Auto) 1.2 0.0-7.0 % Basophils (%) (Auto) 1.3 0.0-2.0 % Neutrophils # (Auto) 6.9 1.6-8.6 10 ^3/uL Lymphocytes # (Auto) 5.1 0.4-5.4 10 ^3/uL Monocytes # (Auto) 1.1 0-1.3 10 ^3/uL Eosinophils # (Auto) 0.2 0-0.8 10 ^3/uL Basophils # (Auto) 0.2 0-0.2 10 ^3/uL Nucleated Red Blood Cells 0.1 % Urine Color Yellow Yellow Urine Clarity Clear Clear Urine pH 7.0 5.0-9.0 Urine Specific [place] 1.033 1.001-1.035 Urine Protein Trace H Negative Urine Ketones Trace Negative Urine Blood Negative Negative /uL Urine Nitrite Negative Negative Urine Bilirubin Negative Negative Urine Urobilinogen Normal Negative mg/dL Urine Leukocyte Esterase Negative Negative /uL Urine RBC 2 0 - 4 /hpf Urine Microscopic WBC 1 0-5 /HPF Urine Squamous Epithelial Cells Few <5 /hpf Urine Bacteria None seen None Seen /hpf Urine Mucus Few None Seen Urine Glucose 4+ H Normal mg/dL Sodium Level 143 136-145 mmol/L Potassium Level 3.6 3.5-5.1 mmol/L Chloride Level 107 98-107 mmol/L Carbon Dioxide Level 21 20-31 mmol/L Anion Gap 15 5-15 Blood Urea Nitrogen 22 9-23 mg/dL Creatinine 0.73 0.550-1.02 mg/dL Glomerular Filtration Rate Calc 99 >90 mL/min BUN/Creatinine Ratio 30.1 H 10.0-20.0 Serum Glucose 180 H 74-106 mg/dL Calcium Level 11.0 H 8.7-10.4 mg/dL Total Bilirubin 0.5 0.2-1.0 mg/dL Aspartate Amino Transferase (AST) 25 13-40 U/L Alanine Aminotransferase (ALT) 67 H 7-40 U/L Alkaline Phosphatase 292 H 46-116 U/L Total Protein 6.8 5.7-8.2 g/dL Albumin 4.4 3.2-4.8 g/dL Assessment Paroxysmal atrial fibrillation, stage III, now NSR. Graves disease. Dyslipidemia. Insulin-dependent diabetes mellitus. Obesity. Plan/Recommendation I agree with your ongoing assessment and care of plan. Patient has been seen by Shelley Salvador NP on my behalf, her and I discussed the plan with the patient. Recent transthoracic echocardiogram revealed LVEF 65% with normal RV function. Transition from amiodarone drip to flecainide therapy and initiate Xarelto HS. Continue propranolol and methimazole therapy. Thyroid levels pending at this time, continue treatment per primary care team. Patient to continue following up with Dr. Nunez (machine marker) as outpatient. She was strongly advised to also follow-up with a primary mother's helper in the outpatient setting. Additional plan as per the hospital course. Plan discussed with: Patient NYHA Physical activity limitations: NA Date of Service: Jan 06, 2025 Billing Provider: MARY DIAMOND MD Cardiology Common Codes: [id number] INP/OBS CARE (High) MARY DIAMOND MD Jan 06, 2025 16:53
[2025-01-07] VITALS (8 sets, daily range): BP systolic 140–154; BP diastolic 71–79; PULSE 75–87; RESP 16–18; TEMP 97.8–98.7; O2SAT 94–100
[2025-01-07] MEDS: ONDANSETRON HCL 4 MG/2 ML VIAL IV PRN (06:18)
[2025-01-07] MEDS: ACETAMINOPHEN 325 MG TAB PO PRN (06:19)
[2025-01-07 06:52] LABS: Hematocrit 37.2 % (36.0-46.0); Hemoglobin 12.8 g/dL (12.2-16.2); Mean Corpuscular Hemoglobin 29.5 pg (28.0-32.0); Mean Corpuscular Volume 85.5 fL (80.0-100.0); Nucleated Red Blood Cells % 0.0 %
[2025-01-07 06:58] LABS: Albumin 3.6 g/dL (3.2-4.8); Anion Gap 10 (5-15); BUN/Creatinine Ratio 23.1 (10.0-20.0); Blood Urea Nitrogen 12 mg/dL (9-23); Calcium 9.0 mg/dL (8.7-10.4); Carbon Dioxide 20 mmol/L (20-31); Chloride 105 mmol/L (98-107); Potassium 4.6 mmol/L (3.5-5.1); Total Protein 6.0 g/dL (5.7-8.2)
[2025-01-07 06:59] LABS: Bilirubin, Total 0.5 mg/dL (0.2-1.0)
[2025-01-07 07:00] LABS: Alanine Aminotransferase 48 U/L (7-40); Alkaline Phosphatase 226 U/L (46-116); Glucose 209 mg/dL (74-106); Sodium 135 mmol/L (136-145)
[2025-01-07 12:55] LABS: Free T3 5.61 pg/mL (2.3-4.2)
[2025-01-07 12:56] LABS: Free T4 (Free Thyroxine) 4.85 ng/dL (0.89-1.76)
--- NOTE | 2025-01-07 17:12 | DVHPNRES ---
Progress Note Date Seen: Jan 07, 2025 Resident Creating Document: BARRON SPRINGER RESIDENT Medical Necessity Reason Pt with a Central, PICC or Fol: No Subjective Review of Systems Patient is a 54-year-old female with past medical history of insulin-dependent type 1 diabetes mellitus, hyperlipidemia, Graves disease, and history of AFib presents to the ED with chief complaint of palpitations and flutters in her chest, associated with shortness of breath, dizziness, headache. She reported having watery diarrhea 4 times on Tuesday which was watery in consistency She denies any fevers, nausea, vomiting. Patient took propranolol at home but in the ED patient was found to be in a fib with rapid ventricular response. She was started on amiodarone drip and successfully was converted to sinus rhythm. She reported having the same symptoms 3 weeks ago presented to the ED. She reports having these symptoms 3 times over this year and was hospitalized. Patient was prescribed Eliquis but does not take it because she feels dizzy after taking it. She has a cardiology appointment this week. Past surgical history: Had a appendicectomy, partial hysterectomy and unilateral oophorectomy, and tubal ligation Social history: Patient stats she stopped drinking and smoking 1-1/2 year ago. Patient seen at bedside. Patient appears alert x3, comfortable, in no acute distress, reports she feels better than yesterday, had no overnight events, denies any chest pain, nausea, vomiting, headaches, dizziness, shortness of breath, diarrhea. She has no new complaints. Consulted Endocrinology for adjustment of dose of thyroid medication. Constitutional: Denies weight loss, fever and chills. HEENT: Denies changes in vision and hearing. Respiratory: Denies shortness of breath and cough Cardiovascular: Denies chest discomfort or palpitations GI: Mild abdominal distention, reports improvement on abdominal discomfort. : Denies dysuria and urinary frequency. Musculoskeletal: Denies myalgias and joint pain Skin: Denies rash and pruritus. Neurological: Denies dizziness, headache, vision or hearing problems Objective vital signs Vital Sign Date Time Temp Pulse Resp B/P (MAP) Pulse Ox O2 Delivery O2 Flow Rate FiO2 01/07/25 14:44 80 143/77 01/07/25 13:05 98.1 16 100 98.1 01/07/25 08:00 Room Air* 0 21 Total Intake and Output 01/06/25 01/06/25 01/07/25 15:00 23:00 07:00 Intake Total 1516.65 ml 383.35 ml 1050 ml Balance 1516.65 ml 383.35 ml 1050 ml medications Current Medications Medications Dose Ordered Sig/Isaak Route Start Time Stop Time Status Last Admin Dose Admin Sodium Chloride 1,000 ml @ 100 mls/hr Q10H IV 01/06/25 16:09 01/07/25 05:55 100 MLS/HR Acetaminophen/ Hydrocodone Bitart 1 tab Q4HP PRN PO 01/06/25 14:00 Ondansetron HCl 4 mg Q4HP PRN IV 01/06/25 14:00 01/07/25 06:18 4 MG Acetaminophen 650 mg Q6HP PRN PO 01/06/25 14:00 01/07/25 06:19 650 MG Morphine Sulfate 2 mg Q4HPRN PRN IV 01/06/25 14:00 Diagnostic Test (Pha) 1 strip ACHS 01/06/25 17:00 01/07/25 11:37 1 STRIP Insulin Human Regular ACHS SC 01/06/25 17:00 01/07/25 11:37 6 UNITS Dextrose 50 ml UD PRN IV 01/06/25 14:00 Methimazole 10 mg TID PO 01/06/25 22:00 01/07/25 14:16 10 MG Propranolol HCl 10 mg TID PO 01/06/25 22:00 01/07/25 14:44 10 MG Insulin Glargine 20 units BID SC 01/06/25 22:00 01/07/25 09:25 20 UNITS Flecainide Acetate 50 mg Q12HR PO 01/06/25 22:00 01/07/25 09:21 50 MG Rivaroxaban 20 mg QPM PO 01/06/25 18:00 01/06/25 18:41 20 MG Insulin Glargine 40 units HS SC 01/07/25 22:00 UNV Examination General: Patient alert and oriented in person, place and time. Patient following commands. HEENT: Normocephalic, atraumatic, moist mucous membranes Respiratory/pulmonary: Clear lungs bilaterally, vesicular murmurs present in almost all lung betancur, no associated crackles or wheezes. Cardiovascular: Normal heart sounds S1 and S2 with no associated murmurs Abdomen: Abdomen nondistended, there is no pain to palpation in any of the abdominal quadrants, no palpable masses. Extremities: There is no peripheral edema present at the lower extremities. Peripheral Pulses: 3+ Radial (R). 3+ Radial (L). 3+ Dorsalis pedis (R). 3+ Dorsalis pedis(L) Skin: No rashes or pruritus, there is no sacral edema present at this time. Neurological: Intact cranial nerves with no focal neurologic deficits laboratory and microbiology Laboratory Tests 01/07/25 05:42 Test 01/07/25 05:42 Range/Units Serum Glucose 209 H 74-106 mg/dL Microbiology Date/Time Source Procedure Growth Status 01/06/25 13:52 Blood Blood Culture - Preliminary NO GROWTH AFTER 24 HOURS OF INCUBATION. Resulted Problem List/Assessment/Plan Problem List/Assessment/Plan # Afib with RVR # Paroxysmal AFib, CHADS -VASC score 2 - Patient is on Flecanide 50 mg, Riveroxaban 20mg, Propranolol 10mg - patient on telemetry - cardiology consulted # Graves disease - consulted endocrinology for dose modification of thyroid medication. - TSH: 0.02, Free T4 - 4.8, Total T3- 1.82 - Monitor labs # Diabetes type 1 - Accu-Cheks and insulin sliding scale # Hyperlipidemia # Obesity - continue home medication atorvastatin - Total Cholestrol -173 - Diet and exercise, lifestyle modification counseled PPI PPX: none DVT PPX: Ambulatory Goals of care discussed with patient for 27 minutes: full code Case discussed with Dr. Aldana. Plan discussed with: Patient Date of Service: Jan 07, 2025 Billing Provider: ROBER ALDANA MD Common Visit Codes: [id number] INP/OBS CARE(HIGH) BARRON SPRINGER RESIDENT Jan 07, 2025 17:12 ROBER ALDANA MD Jan 10, 2025 14:20
[2025-01-07] MEDS ORDERED: INSULIN LANTUS (GLARGINE) 1 /0.01ml (100units/ml) SC SCH (22:00)
--- NOTE | 2025-01-07 23:39 | DVHPN2 ---
Progress Note - Dictate Date Seen: Jan 07, 2025 Medical Necessity Reason Pt with a Central, PICC or Fol: No Subjective Patient was seen and evaluated in follow up. Patient is resting in bed. Reports she feels better than yesterday. CBC is unremarkable. ALT 48, ALK PHOS 226. BS in the 200s. Telemetry reviewed. vital signs Vital Sign Date Time Temp Pulse Resp B/P (MAP) Pulse Ox O2 Delivery O2 Flow Rate FiO2 01/07/25 22:02 81 150/76 01/07/25 20:58 98.7 16 94 98.7 01/07/25 08:00 Room Air* 0 21 Total Intake and Output 01/06/25 01/06/25 01/07/25 15:00 23:00 07:00 Intake Total 1516.65 ml 383.35 ml 1050 ml Balance 1516.65 ml 383.35 ml 1050 ml medications Current Medications Medications Dose Ordered Sig/Isaak Route Start Time Stop Time Status Last Admin Dose Admin Sodium Chloride 1,000 ml @ 100 mls/hr Q10H IV 01/06/25 16:09 01/07/25 05:55 100 MLS/HR Acetaminophen/ Hydrocodone Bitart 1 tab Q4HP PRN PO 01/06/25 14:00 Ondansetron HCl 4 mg Q4HP PRN IV 01/06/25 14:00 01/07/25 06:18 4 MG Acetaminophen 650 mg Q6HP PRN PO 01/06/25 14:00 01/07/25 06:19 650 MG Morphine Sulfate 2 mg Q4HPRN PRN IV 01/06/25 14:00 Diagnostic Test (Pha) 1 strip ACHS 01/06/25 17:00 01/07/25 22:15 1 STRIP Insulin Human Regular ACHS SC 01/06/25 17:00 01/07/25 22:17 4 UNITS Dextrose 50 ml UD PRN IV 01/06/25 14:00 Methimazole 10 mg TID PO 01/06/25 22:00 01/07/25 22:14 10 MG Propranolol HCl 10 mg TID PO 01/06/25 22:00 01/07/25 22:02 10 MG Insulin Glargine 20 units BID SC 01/06/25 22:00 01/07/25 22:16 20 UNITS Flecainide Acetate 50 mg Q12HR PO 01/06/25 22:00 01/07/25 22:03 50 MG Rivaroxaban 20 mg QPM PO 01/06/25 18:00 01/07/25 18:07 20 MG Insulin Glargine 40 units HS SC 01/07/25 22:00 UNV objective GENERAL: Alert and oriented x 3. No acute distress. EYES: PERRL, EOMI. Anicteric. HENT: Moist mucous membranes. LUNGS: Clear to auscultation bilaterally. CARDIOVASCULAR: Regular rate and rhythm. ABDOMEN: Soft, nontender and nondistended. EXTREMITIES: No edema. NEUROLOGIC: No focal neurological deficits. SKIN: Warm, dry. laboratory and microbiology Laboratory Tests 01/07/25 05:42 Test 01/07/25 05:42 Range/Units Serum Glucose 209 H 74-106 mg/dL Problem List Paroxysmal atrial fibrillation, stage III, now NSR. Graves disease. Dyslipidemia. Insulin-dependent diabetes mellitus. Obesity. Assessment/Plan Continued all current supportive medical care. Morphine and [place] for pain. Tapazole. Zofran. Inderal. Xarelto. Recent transthoracic echocardiogram revealed LVEF 65% with normal RV function. Additional plan as per the hospital course. Plan discussed with: Patient MARY DIAMOND MD Jan 07, 2025 23:39
[2025-01-08] VITALS (8 sets, daily range): BP systolic 135–159; BP diastolic 61–86; PULSE 74–83; RESP 16–18; TEMP 36.9; O2SAT 94–99
[2025-01-08 06:31] LABS: Hematocrit 37.3 % (36.0-46.0); Hemoglobin 13.1 g/dL (12.2-16.2); Mean Corpuscular Hemoglobin 29.2 pg (28.0-32.0); Mean Corpuscular Volume 83.2 fL (80.0-100.0); Nucleated Red Blood Cells % 0.0 %
[2025-01-08 06:45] LABS: Calcium 10.1 mg/dL (8.7-10.4); Carbon Dioxide 26 mmol/L (20-31); Chloride 105 mmol/L (98-107)
[2025-01-08 06:46] LABS: Albumin 3.8 g/dL (3.2-4.8); Anion Gap 10 (5-15); BUN/Creatinine Ratio 19.6 (10.0-20.0); Bilirubin, Total 0.5 mg/dL (0.2-1.0); Blood Urea Nitrogen 10 mg/dL (9-23); Potassium 4.0 mmol/L (3.5-5.1); Sodium 141 mmol/L (136-145); Total Protein 6.1 g/dL (5.7-8.2)
[2025-01-08 06:50] LABS: Alanine Aminotransferase 61 U/L (7-40); Alkaline Phosphatase 210 U/L (46-116); Glucose 129 mg/dL (74-106)
[2025-01-08] MEDS ORDERED: PROPRANOLOL HCL 20 MG TAB PO PRN (12:30)
--- NOTE | 2025-01-08 13:32 | ECG ---
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
[2025-01-08] MEDS: methIMAzole 5 MG TAB PO SCH (14:00)
[2025-01-08] MEDS ORDERED: PROP1TAB53 PO ×2 (14:43→18:43)
[2025-01-08] MEDS ORDERED: METH-552 PO ×2 (14:43→18:43)
--- NOTE | 2025-01-08 15:40 | DVHPN2 ---
Progress Note - Dictate Date Seen: Jan 08, 2025 Medical Necessity Reason Pt with a Central, PICC or Fol: No Subjective Patient was seen and evaluated in follow up. Patient stable on room air. fAMILY AT BEDSIDE. CBC is unremarkable. AST 52, ALT 61, ALK PHOS 210. Telemetry reviewed. vital signs Vital Sign Date Time Temp Pulse Resp B/P (MAP) Pulse Ox O2 Delivery O2 Flow Rate FiO2 01/08/25 13:59 36.9 83 18 96 01/08/25 13:00 150/73 (98) 01/08/25 08:20 Room Air* 0 21 Total Intake and Output 01/07/25 01/07/25 01/08/25 15:00 23:00 07:00 Intake Total 900 ml 400 ml Balance 900 ml 400 ml medications Current Medications Medications Dose Ordered Sig/Isaak Route Start Time Stop Time Status Last Admin Dose Admin Sodium Chloride 1,000 ml @ 100 mls/hr Q10H IV 01/06/25 16:09 01/08/25 06:19 100 MLS/HR Acetaminophen/ Hydrocodone Bitart 1 tab Q4HP PRN PO 01/06/25 14:00 Ondansetron HCl 4 mg Q4HP PRN IV 01/06/25 14:00 01/07/25 06:18 4 MG Acetaminophen 650 mg Q6HP PRN PO 01/06/25 14:00 01/07/25 06:19 650 MG Morphine Sulfate 2 mg Q4HPRN PRN IV 01/06/25 14:00 Diagnostic Test (Pha) 1 strip ACHS 01/06/25 17:00 01/08/25 11:13 1 STRIP Insulin Human Regular ACHS SC 01/06/25 17:00 01/08/25 11:20 6 UNITS Dextrose 50 ml UD PRN IV 01/06/25 14:00 Insulin Glargine 20 units BID SC 01/06/25 22:00 01/08/25 10:00 20 UNITS Flecainide Acetate 50 mg Q12HR PO 01/06/25 22:00 01/08/25 10:42 50 MG Rivaroxaban 20 mg QPM PO 01/06/25 18:00 01/07/25 18:07 20 MG Insulin Glargine 40 units HS SC 01/07/25 22:00 UNV Methimazole 20 mg TID PO 01/08/25 12:30 Propranolol HCl 20 mg PRN PRN PO 01/08/25 12:30 objective GENERAL: Alert and oriented x 3. No acute distress. EYES: PERRL, EOMI. Anicteric. HENT: Moist mucous membranes. LUNGS: Clear to auscultation bilaterally. CARDIOVASCULAR: Regular rate and rhythm. ABDOMEN: Soft, nontender and nondistended. EXTREMITIES: No edema. NEUROLOGIC: No focal neurological deficits. SKIN: Warm, dry. laboratory and microbiology Laboratory Tests 01/08/25 05:16 Test 01/08/25 05:16 Range/Units Serum Glucose 129 H 74-106 mg/dL Problem List Paroxysmal atrial fibrillation, stage III, now NSR. Graves disease. Dyslipidemia. Insulin-dependent diabetes mellitus. Obesity. Assessment/Plan Continued all current supportive medical care. Morphine and [place] for pain. Tapazole. Zofran. Inderal. Xarelto. Additional plan as per the hospital course. Plan discussed with: Patient MARY DIAMOND MD Jan 08, 2025 15:40
--- NOTE | 2025-01-08 17:23 | DVHDSRES ---
Discharge Summary Date of Admission Resident Creating Document: BARRON SPRINGER RESIDENT Jan 06, 2025 at 13:55 Date of Discharge: Jan 08, 2025 Admitting Diagnosis Afib with RVR Labs/Diagnostic Data: Laboratory Results Test 01/08/25 11:18 01/08/25 05:16 01/06/25 13:52 01/06/25 10:10 POC Glucose 277 mg/dl (70-106) White Blood Count 5.8 10^3/uL (4.4-10.8) Red Blood Count 4.48 10^6/uL (4.0-5.20) Hemoglobin 13.1 g/dL (12.2-16.2) Hematocrit 37.3 % (36.0-46.0) Mean Corpuscular Volume 83.2 fL (80.0-100.0) Mean Corpuscular Hemoglobin 29.2 pg (28.0-32.0) Mean Corpuscular Hemoglobin Concent 35.1 g/dL (32.0-36.0) Red Cell Distribution Width 12.3 % (11.8-14.3) Platelet Count 271 10^3/uL (140-450) Mean Platelet Volume 8.4 fL (6.9-10.8) Neutrophils (%) (Auto) 53.8 % (37.0-80.0) Lymphocytes (%) (Auto) 31.8 % (10.0-50.0) Monocytes (%) (Auto) 10.8 % (0.0-12.0) Eosinophils (%) (Auto) 3.1 % (0.0-7.0) Basophils (%) (Auto) 0.5 % (0.0-2.0) Neutrophils # (Auto) 3.1 10 ^3/uL (1.6-8.6) Lymphocytes # (Auto) 1.9 10 ^3/uL (0.4-5.4) Monocytes # (Auto) 0.6 10 ^3/uL (0-1.3) Eosinophils # (Auto) 0.2 10 ^3/uL (0-0.8) Basophils # (Auto) 0 10 ^3/uL (0-0.2) Nucleated Red Blood Cells 0.0 % Sodium Level 141 mmol/L (136-145) Potassium Level 4.0 mmol/L (3.5-5.1) Chloride Level 105 mmol/L (98-107) Carbon Dioxide Level 26 mmol/L (20-31) Anion Gap 10 (5-15) Blood Urea Nitrogen 10 mg/dL (9-23) Creatinine 0.51 mg/dL (0.550-1.02) Glomerular Filtration Rate Calc 112 mL/min (>90) BUN/Creatinine Ratio 19.6 (10.0-20.0) Serum Glucose 129 mg/dL (74-106) Calcium Level 10.1 mg/dL (8.7-10.4) Total Bilirubin 0.5 mg/dL (0.2-1.0) Aspartate Amino Transferase (AST) 52 U/L (13-40) Alanine Aminotransferase (ALT) 61 U/L (7-40) Alkaline Phosphatase 210 U/L (46-116) Total Protein 6.1 g/dL (5.7-8.2) Albumin 3.8 g/dL (3.2-4.8) Lactic Acid Level 1.2 mmol/L (0.4-2.0) Magnesium Level 1.8 mg/dL (1.6-2.6) Triglycerides Level 137 mg/dL (< 150) Cholesterol Level 173 mg/dL (< 200) LDL Cholesterol 63 mg/dL (< 100) HDL Cholesterol 82 mg/dL (40-59) Thyroid Stimulating Hormone (TSH) 0.02 uIU/mL (0.55-4.78) Free Thyroxine (T4) Calculated 4.85 ng/dL (0.89-1.76) Thyroxine (T4) 13.7 ug/dL (4.5-12.0) Free Triiodothyronine (T3) pg/mL 5.61 pg/mL (2.3-4.2) Total Triiodothyronine (TT3) 1.82 ng/mL (0.60-1.81) Troponin I High Sensitivity 10 ng/L (</=34) Test 01/06/25 09:27 Urine Color Yellow (Yellow) Urine Clarity Clear (Clear) Urine pH 7.0 (5.0-9.0) Urine Specific [place] 1.033 (1.001-1.035) Urine Protein Trace (Negative) Urine Ketones Trace (Negative) Urine Blood Negative /uL (Negative) Urine Nitrite Negative (Negative) Urine Bilirubin Negative (Negative) Urine Urobilinogen Normal mg/dL (Negative) Urine Leukocyte Esterase Negative /uL (Negative) Urine RBC 2 /hpf (0 - 4) Urine Microscopic WBC 1 /HPF (0-5) Urine Squamous Epithelial Cells Few /hpf (<5) Urine Bacteria None seen /hpf (None Seen) Urine Mucus Few (None Seen) Urine Glucose 4+ mg/dL (Normal) Other Laboratory Tests 01/08/25 05:16 Brief Hx & Hospital Course: Patient is a 54-year-old female with past medical history of insulin-dependent type 1 diabetes mellitus, hyperlipidemia, Graves disease, and history of AFib presents to the ED with chief complaint of palpitations and flutters in her chest, associated with shortness of breath, dizziness, headache. She reported having watery diarrhea 4 times on Tuesday which was watery in consistency She denies any fevers, nausea, vomiting. Patient took propranolol at home but in the ED patient was found to be in a fib with rapid ventricular response. She was started on amiodarone drip and successfully was converted to sinus rhythm. She reported having the same symptoms 3 weeks ago presented to the ED. She reports having these symptoms 3 times over this year and was hospitalized. Patient was prescribed Eliquis but does not take it because she feels dizzy after taking it. She has a cardiology appointment this week. Brief hospital course: Patient came to the ED with AFib with RVR and has a history of paroxysmal AFib with Chacho Vasc score of 2, patient is on flecainide 50 mg, rivaroxaban 20 mg, propranolol 10 mg, she was monitored on telemetry and Cardiology was consulted and recommended to follow up outpatient and continue hospital course. Recent transthoracic echocardiogram revealed LVEF 65% with normal RV function. Patient also has Graves disease and bite block maker was consulted for dose modification and methimazole was changed to 20 mg PO BID and propranolol was changed to 20 mg TID p.r.n. for 30 days. TSH: 0.02, free T4- 4.8, T3 -1.82. For patient's diabetes insulin sliding scale and Accu-Cheks were done. For patient's hyperlipidemia continue home medications, and lifestyle modifications were counseled. Patient is stable for discharge and communicated understanding of her discharge plan and requirement for follow-up with Cardiology and PCP outpatient. General: Patient alert and oriented in person, place and time. Patient following commands. HEENT: Normocephalic, atraumatic, moist mucous membranes Respiratory/pulmonary: Clear lungs bilaterally, vesicular murmurs present in almost all lung betancur, no associated crackles or wheezes. Cardiovascular: Normal heart sounds S1 and S2 with no associated murmurs Abdomen: Abdomen nondistended, there is no pain to palpation in any of the abdominal quadrants, no palpable masses. Extremities: There is no peripheral edema present at the lower extremities. Peripheral Pulses: 3+ Radial (R). 3+ Radial (L). 3+ Dorsalis pedis (R). 3+ Dorsalis pedis(L) Skin: No rashes or pruritus, there is no sacral edema present at this time. Neurological: Intact cranial nerves with no focal neurologic deficits Operations or Procedures CHEST RADIOGRAPH Indication: sob Technique: Single frontal view of the chest was obtained COMPARISON: XY CHEST PORTABLE on DOS: 12/02/24, XY CHEST PORTABLE on DOS: 09/16/24 FINDINGS: Lines and Tubes: None Lungs: Clear Pleura: No effusion. No pneumothorax. Cardiomediastinal contours: Unremarkable Bones: Unremarkable IMPRESSION: No acute disease. Condition at Discharge: Stable Final Diagnosis/Problems List # Afib with RVR # Paroxysmal AFib, CHADS -VASC score 2 # Graves disease # Diabetes type 1 # Hyperlipidemia # Obesity- BMI 33.0 Discharge Disposition: Home Discharge Instruct/Medications Diet: Cardiac 2g Na,low cholest Activity: No Restrictions, As Tolerated Follow Up/Referral: Follow up with Discharge clinic in 1-2 weeks Medications: As per EMR Scheduled Apixaban Base (Eliquis), 5 MG PO BID Insulin Glargine (Lantus Solostar), 38 UNIT SC BID, (Reported) Methimazole (Methimazole), 20 MG PO BID Scheduled PRN Propranolol HCl (Propranolol Hydrochloride), 20 MG PO TID PRN Miscellaneous Medications Atorvastatin Calcium (Lipitor), (Reported) Discontinued Medications Methimazole (Methimazole), 10 MG PO TID Propranolol HCl (Propranolol Hydrochloride), 10 MG PO TID Discharge Statement: "Patient was advised to return to the ER or call 911 if any headaches, dizziness, shortness of breath, chest pain, abdominal pain, bleeding, fevers, or worsening of medical condition. Patient was counseled about treatment plan, medications, possible side effects, patientverbalized understanding. All questions were answered to the best of my ability. This discharge took greater then 30 minutes in planning, reviewing documentation, counseling the patient, and discussing with other team members." ASSESSMENT ASSESSMENT Assessment AFib with RVR Date of Service: Jan 08, 2025 Billing Provider: ROBER ALDANA MD Common Visit Codes: 82417-KWN/OBS DISCH DAY >30min BARRON SPRINGER RESIDENT Jan 08, 2025 17:23 ROBER ALDANA MD Jan 10, 2025 14:32
--- NOTE | 2025-01-08 18:12 | DVHCONRES ---
Date Seen: Jan 08, 2025 Resident Creating Document: JOSHUA FIGUEROA History of Present Illness 54 year old female with past medical type 1 diabetes mellitus, hyperlipidemia, Graves disease, atrial fibrillation presented with complaints of palpitations. Patient was found to be in AFib with RVR. Patient was given amiodarone in the ER and later was continued on home medication propranolol and methimazole. She has converted to sinus rhythm. Endocrine was consulted for management of Graves disease She was seen and examined at bedside. Patient is not mentioning when he had symptoms. Patient is currently in sinus rhythm in 70s. She has been hospitalized multiple times for AFib with RVR. She was seen by Dr. Nunez four weeks ago where she was prescribed prednisone for Graves eye disease and was advised to follow with the final inspector and tester. She is currently on methimazole 10 mg t.i.d. and propranolol 10 mg t.i.d. for Graves disease. Please takes insulin Lantus 38 mg b.i.d. subcutaneous and insulin lispro 10-15 units SC minutes before meals. Last hemoglobin A1c 01/04/2025 was hemoglobin 9.6. Social history Patient quit smoking and alcohol 1-1/2 years ago Family History: Diabetes mellitus G8 FATHER FH: cancer G8 MOTHER G8 FATHER Allergies: Coded Allergies: Naproxen (Verified Allergy, Severe, 07/30/23) Swollen throat Metronidazole (Verified Allergy, Unknown, 07/28/23) Home Meds Active Scripts Propranolol HCl (Propranolol Hydrochloride) 20 Mg Tab, 20 MG PO TID PRN for 30 Days, #90 TAB Prov:JOSHUA FIGUEROA RESIDENT 01/08/25 Methimazole (Methimazole) 10 Mg Tab, 20 MG PO BID for 90 Days, #360 TAB Prov:JOSHUA FIGUEROA RESIDENT 01/08/25 Apixaban Base (ELIQUIS) 5 Mg Tab, 5 MG PO BID for 30 Days, #60 TAB Prov:GUI BRAMBILA RESIDENT 12/04/24 Reported Medications Insulin Glargine (Lantus Solostar) 100 Unit/Ml Inj, 38 UNIT SC BID 12/03/24 Atorvastatin Calcium (Lipitor) 10 Mg Tab 12/03/24 Discontinued Scripts Propranolol HCl (Propranolol Hydrochloride) 20 Mg Tab, 10 MG PO TID for 30 Days, #45 TAB Prov:ALI,GUI RESIDENT 12/04/24 Methimazole (Methimazole) 5 Mg Tab, 10 MG PO TID for 30 Days, #180 TAB Prov:PATTYGUI RESIDENT 12/04/24 Current Medications Current Medications Medications (Trade) Dose Ordered Sig/Isaak Route PRN Reason Start Time Stop Time Status Last Admin Insulin Glargine (Lantus) 40 units HS SC 01/07/25 22:00 UNV Methimazole (Tapazole) 20 mg TID PO 01/08/25 12:30 01/08/25 18:04 DC 01/08/25 16:44 Propranolol HCl (Inderal Tablet) 20 mg PRN PRN PO HEART RATE GREATER THAN 140 01/08/25 12:30 01/08/25 18:04 DC Review of Systems As described in the HPI. Vital Signs Vital Signs Date Time Temp Pulse Resp B/P (MAP) Pulse Ox O2 Delivery O2 Flow Rate FiO2 01/08/25 17:00 98.0 78 17 154/80 (104) 99 98.0 01/08/25 08:20 Room Air* 0 21 Physical Exam Examination General Appearance: Alert, Oriented X3, Cooperative, No acute distress HEENT: EOMI Respiratory: Clear to auscultation, Normal air movement Cardiovascular: Regular rate, Normal S1, Normal S2 Abdominal: Normal bowel sounds Extremities: No cyanosis, No edema, Normal pulses, No tenderness/swelling Skin: No rashes, No breakdown Neuro: Normal gait, Normal speech, Strength at 5/5 X4 ext, Normal tone, Sensation intact, Cranial nerves 3-12 NL, Reflexes 2+ Psych/Mental Status: Mental status NL, Mood NL Labs/Diagnostic Data Labs Test 01/08/25 16:56 01/08/25 05:16 01/06/25 13:52 01/06/25 10:10 Range/Units POC Glucose 283 H 70-106 mg/dl White Blood Count 5.8 # 4.4-10.8 10^3/uL Red Blood Count 4.48 4.0-5.20 10^6/uL Hemoglobin 13.1 12.2-16.2 g/dL Hematocrit 37.3 36.0-46.0 % Mean Corpuscular Volume 83.2 80.0-100.0 fL Mean Corpuscular Hemoglobin 29.2 28.0-32.0 pg Mean Corpuscular Hemoglobin Concent 35.1 32.0-36.0 g/dL Red Cell Distribution Width 12.3 11.8-14.3 % Platelet Count 271 140-450 10^3/uL Mean Platelet Volume 8.4 6.9-10.8 fL Neutrophils (%) (Auto) 53.8 37.0-80.0 % Lymphocytes (%) (Auto) 31.8 10.0-50.0 % Monocytes (%) (Auto) 10.8 0.0-12.0 % Eosinophils (%) (Auto) 3.1 0.0-7.0 % Basophils (%) (Auto) 0.5 0.0-2.0 % Neutrophils # (Auto) 3.1 1.6-8.6 10 ^3/uL Lymphocytes # (Auto) 1.9 0.4-5.4 10 ^3/uL Monocytes # (Auto) 0.6 0-1.3 10 ^3/uL Eosinophils # (Auto) 0.2 0-0.8 10 ^3/uL Basophils # (Auto) 0 0-0.2 10 ^3/uL Nucleated Red Blood Cells 0.0 % Sodium Level 141 # 136-145 mmol/L Potassium Level 4.0 3.5-5.1 mmol/L Chloride Level 105 98-107 mmol/L Carbon Dioxide Level 26 20-31 mmol/L Anion Gap 10 5-15 Blood Urea Nitrogen 10 9-23 mg/dL Creatinine 0.51 L 0.550-1.02 mg/dL Glomerular Filtration Rate Calc 112 >90 mL/min BUN/Creatinine Ratio 19.6 10.0-20.0 Serum Glucose 129 H 74-106 mg/dL Calcium Level 10.1 8.7-10.4 mg/dL Total Bilirubin 0.5 0.2-1.0 mg/dL Aspartate Amino Transferase (AST) 52 H 13-40 U/L Alanine Aminotransferase (ALT) 61 H 7-40 U/L Alkaline Phosphatase 210 H 46-116 U/L Total Protein 6.1 5.7-8.2 g/dL Albumin 3.8 3.2-4.8 g/dL Lactic Acid Level 1.2 0.4-2.0 mmol/L Magnesium Level 1.8 1.6-2.6 mg/dL Triglycerides Level 137 < 150 mg/dL Cholesterol Level 173 < 200 mg/dL LDL Cholesterol 63 < 100 mg/dL HDL Cholesterol 82 H 40-59 mg/dL Thyroid Stimulating Hormone (TSH) 0.02 L 0.55-4.78 uIU/mL Free Thyroxine (T4) Calculated 4.85 H 0.89-1.76 ng/dL Thyroxine (T4) 13.7 H 4.5-12.0 ug/dL Free Triiodothyronine (T3) pg/mL 5.61 H 2.3-4.2 pg/mL Total Triiodothyronine (TT3) 1.82 H 0.60-1.81 ng/mL Troponin I High Sensitivity 10 </=34 ng/L Test 01/06/25 09:27 Range/Units Urine Color Yellow Yellow Urine Clarity Clear Clear Urine pH 7.0 5.0-9.0 Urine Specific [place] 1.033 1.001-1.035 Urine Protein Trace H Negative Urine Ketones Trace Negative Urine Blood Negative Negative /uL Urine Nitrite Negative Negative Urine Bilirubin Negative Negative Urine Urobilinogen Normal Negative mg/dL Urine Leukocyte Esterase Negative Negative /uL Urine RBC 2 0 - 4 /hpf Urine Microscopic WBC 1 0-5 /HPF Urine Squamous Epithelial Cells Few <5 /hpf Urine Bacteria None seen None Seen /hpf Urine Mucus Few None Seen Urine Glucose 4+ H Normal mg/dL Microbiology Date/Time Source Procedure Growth Status 01/06/25 13:52 Blood Blood Culture - Preliminary NO GROWTH AFTER 48 HOURS OF INCUBATION. Resulted Plan/Recommendation Assessment # Graves disease -home dose, methimazole 10 mg t.i.d. and propranolol 10 mg t.i.d. # Diabetes type 1, diagnosed at the age of 20 -on home insulin Fasting glucose 142 with current Lantus regimen # Afib with RVR, recurrent episodes # Paroxysmal AFib, CHADS -VASC score 2 # Hyperlipidemia # Obesity- BMI 33.0 Plan Thyroid function tests done in the hospital, TSH 0.02, free T4 4.85, total T4 13.7, free T3 5.61, total T3 1.82 suggesting uncontrolled Graves disease Consider patient discharging on methimazole 20 mg b.i.d. (total dose of 40 mg daily) and propranolol 10 mg t.i.d. Patient planned to be discharged today, consider adding bolus insulin Humalog with pre meal if patient is not discharged today. Keep blood glucose 140-119 Consistent carbohydrate diet Accu-Cheks a.c. HS with mild sliding scale with Humalog Continue home insulin regimen on discharge Patient was advised to follow up with Endocrine Clinic. Thank you for your consultation. Please feel free to ask any questions or additional information if needed. Case discussed with Dr. Nunez Plan discussed with: Patient, Other JOSHUA FIGUEROA RESIDENT Jan 08, 2025 18:12
== END 2025-01-08 17:20 | disposition home or self-care (01) | DRG 310 ==
LOC: ER 09:00 → OVERFLOW 13:55 → TELE-WESTW 17:50
PROVIDERS: ADMIT Student in an Organized Health Care Education/Training Program; ATTEND Student in an Organized Health Care Education/Training Program
DX: I48.0 Paroxysmal atrial fibrillation (principal); E05.00 Thyrotoxicosis with diffuse goiter without thyrotoxic crisis or storm; E10.9 Type 1 diabetes mellitus without complications; E66.9 Obesity, unspecified; E78.5 Hyperlipidemia, unspecified; F32.A Depression, unspecified; F41.9 Anxiety disorder, unspecified; Z68.33 Body mass index [BMI] 33.0-33.9, adult; Z79.4 Long term (current) use of insulin; Z79.899 Other long term (current) drug therapy; Z88.6 Allergy status to analgesic agent; Z88.1 Allergy status to other antibiotic agents; Z90.49 Acquired absence of other specified parts of digestive tract; Z98.51 Tubal ligation status
CPT/HCPCS: 36415; 71045; 80053; 80061; 81001; 82962; 83605; 83735; 84436; 84439; 84443; 84480; 84481; 84484; 85025; 87040; 93005; 96365; 99291; 99292; G0378; J1815; J2405; J2543